=== PATIENT | female | born 1960 | race Caucasian/White ===

== ENCOUNTER → 2018-03-09 09:34 | Outpatient (CLI) | payer MEDICAID, SELFPAY ==
[2018-03-09 10:22] LABS: Absolute Lymphocyte Count 1.95 X10^3/ul (0.83-4.51); Absolute Neutrophil Count 3.6 X10^3/uL (2.0-7.7); Basophil# 0.05 X10^3/uL; Basophil% 0.8 % (0-1); Eosinophil# 0.19 X10^3/uL; Eosinophils% 3.1 % (0-5); Hematocrit 43.6 % (37-47); Hemoglobin 13.7 g/dl (12.0-15.0); Lymphocyte # 1.95 X10^3/ul (4.0); Lymphocyte % 31.7 % (19-41); Mean Corp Hgb Conc 31.4 g/gl (32-36); Mean Corpuscular Hgb 27.8 pg (27.0-32.0); Mean Corpuscular Volume 88.4 fL (81-99); Mean Platelet Vol. 9.2 fl (6.2-12.0); Monocyte# 0.35 X10^3/uL; Monocyte% 5.7 % (0-10); Neutrophil % 58.5 % (47-70); Platelet Count 292 K/mm3 (150-450); RBC Distribution Width CV 13.1 % (11.6-14.6); RBC Distribution Width SD 42.3 fl (35.1-43.9); Red Blood Count 4.93 M/mm3 (4.2-5.4); White Blood Count 6.2 K/mm3 (4.4-11.0)
[2018-03-09 10:38] LABS: POSITIVE COUNT NO; POSITIVE DIFFERENTIAL NO; POSITIVE MORPHOLOGY NO
[2018-03-09 10:48] LABS: AST(SGOT) 19 U/L (15-37); Alanine Aminotransfer ALT/SGPT 24 U/L (13-56); Albumin, Serum 3.7 g/dL (3.2-5.0); Alkaline Phosphatase 103 U/L (45-117); Anion Gap 7 (5-15); BUN 15 mg/dL (7-18); BUN/Creat Ratio 23.6 RATIO (10-20); Calcium,Total 9.1 mg/dL (8.5-10.1); Chloride 105 mmol/L (98-107); Cholesterol 254 mg/dL (200); Creatinine, Serum 0.64 mg/dL (0.55-1.02); EST Glomerular Filtration Rate 101 mL/min (>60); Est Glom Filt Rate - Afr Amer 123 mL/min (>60); Globulin 3.7 g/dL (2.2-4.2); Glucose 89 mg/dL (74-106); High Density Lipoprotein 77 mg/dL; Potassium 4.2 mmol/L (3.5-5.1); Protein, Total 7.4 g/dL (6.4-8.2); Sodium Level 140 mmol/L (136-145); Triglycerides 152 mg/dL; Very Low Density Lipoprotein 30 mg/dL (5-40)
== END ==
PROVIDERS: Family Provider Preventive Medicine Occupational Medicine; PCP Preventive Medicine Occupational Medicine; Visit Provider Preventive Medicine Occupational Medicine
DX: Z13.1 Encounter for screening for diabetes mellitus (principal); Z13.0 Encounter for screening for diseases of the blood and blood-forming organs and certain disorders involving the immune mechanism; Z13.220 Encounter for screening for lipoid disorders; Z13.6 Encounter for screening for cardiovascular disorders
CPT/HCPCS: 36415; 80053; 80061; 85025

== ENCOUNTER → 2018-03-19 10:03 | Outpatient (CLI) | payer MEDICAID, SELFPAY ==
--- NOTE | 2018-03-19 10:04 | RAD_ITS ---
STUDY: X-RAY - LEFT HAND, ATTENTION THIRD FINGER REASON FOR EXAM: Female, 57 years old. Pain. Trigger finger. TECHNIQUE: 3 view(s) of the finger were obtained. COMPARISON: None. FINDINGS: Normal metacarpal head. Normal metacarpophalangeal joint. Normal proximal phalanx. Normal middle phalanx. Normal distal phalanx. Normal proximal interphalangeal joint. Normal distal interphalangeal joint. RAD/Finger(s) Min 2 Views IMPRESSION: No significant abnormality identified. Electronically Signed: Prashant Villalobos MD at 17:07 EDT , Service support ,
== END ==
PROVIDERS: Family Provider Preventive Medicine Occupational Medicine; PCP Preventive Medicine Occupational Medicine; Visit Provider Orthopaedic Surgery
DX: M65.332 Trigger finger, left middle finger (principal)
CPT/HCPCS: 73140

== ENCOUNTER → 2018-04-30 14:27 | Outpatient (CLI) | payer MEDICAID, SELFPAY ==
--- NOTE | 2018-04-30 14:29 | RAD_ITS ---
STUDY: X-RAY - RIGHT HAND, ATTENTION THIRD FINGER REASON FOR EXAM: Female, 57 years old. Pain and swelling TECHNIQUE: 3 view(s) of the finger were obtained. COMPARISON: None. FINDINGS: Normal metacarpal head. Normal metacarpophalangeal joint. Normal proximal phalanx. Normal middle phalanx. Normal distal phalanx. Normal proximal interphalangeal joint. Normal distal interphalangeal joint. RAD/Finger(s) Min 2 Views IMPRESSION: Normal x-ray examination of the finger. Electronically Signed: Brian Ramirez MD at 11:46 EDT , Service support ,
== END ==
PROVIDERS: Family Provider Preventive Medicine Occupational Medicine; PCP Preventive Medicine Occupational Medicine; Referring Provider Physician Assistant; Visit Provider Physician Assistant
DX: M79.644 Pain in right finger(s) (principal)
CPT/HCPCS: 73140

== ENCOUNTER 2018-11-30 19:14 | Emergency (ER) | payer MEDICAID, SELFPAY ==
[2018-06-26 09:57] VITALS: BMI 27.3
[2018-11-30 19:15] VITALS: BP 141/66; PULSE 77; PULSE 80; RESP 16; TEMP 37.1; O2SAT 100; O2SAT 98; BMI 26.4
--- NOTE | 2018-11-30 19:17 | RAD_ITS ---
STUDY: X-RAY - LEFT HAND REASON FOR EXAM: Female, 58 years old. Tripped and fell, landing on left hand. Redness and swelling. Fourth digit pain. TECHNIQUE: 3 view(s) of the hand. COMPARISON: 3 views of the left third finger March 19, 2018. FINDINGS: Normal radiocarpal articulation. Normal distal radioulnar joint. Normal visualized carpal bones. Normal carpal articulations Normal carpometacarpal articulation of the thumb. Normal second through fifth carpometacarpal joints. Normal metacarpi. Normal metacarpophalangeal joint of the thumb. Normal interphalangeal joint of the thumb. Normal proximal and distal phalanges of the thumb. Normal metacarpophalangeal joints of the second through fifth fingers. Normal proximal and distal interphalangeal joints of the second through fifth fingers. Normal phalanges of the second through fifth fingers. The soft tissue structures are unremarkable. There is no demonstrated acute fracture. RAD/Hand Min 3 Views IMPRESSION: Normal x-ray examination of the left hand. Electronically Signed: Brian Long MD at 19:35 EDT , Service support ,
--- NOTE | 2018-11-30 20:04 | ED.VISSUMM ---
- ER Visit Summary Date of Service: 11/30/18 Chief Complaint: Hand injury History of Present Illness: The patient is a 58 F with a mechanical fall earlier today complaining of left hand pain. No head injury neck pain lower extremity pain or any other injuries. She denies any wrist pain Physical Examination: Otherwise normal exam no C-spine tenderness no chest wall abdominal or back pain able to ambulate well with her shoulder pain is ulnar side of the fifth metacarpal region and fourth digit. No wrist pain no snuffbox tenderness. Emergency Department Course and Treatment: X-ray is negative I will discharge in stable condition Discharge stable condition left hand contusion Impression: [] This note was generated with miDrive dictation software. It may contain incorrect words, spelling, and punctuation that were not noted in review of the chart prior to signing ED Disposition - Plan for ED Patient: Disposition: Home or Assisted Living Instructions: ED Contusion Upper Ext Referrals: Kraig Rich DO [Primary Care Provider] - 3-5 Days if not improving
== END 2018-11-30 20:14 | disposition home or self-care (01) ==
PROVIDERS: Emergency Provider Emergency Medicine; Family Provider Preventive Medicine Occupational Medicine; PCP Preventive Medicine Occupational Medicine
DX: S60.222A Contusion of left hand, initial encounter (principal); W19.XXXA Unspecified fall, initial encounter; Y93.9 Activity, unspecified; Y92.9 Unspecified place or not applicable; Y99.9 Unspecified external cause status
CPT/HCPCS: 73130; 99282

== ENCOUNTER → 2019-12-06 14:52 | Outpatient (CLI) | payer MEDICAID, SELFPAY ==
--- NOTE | 2019-12-06 16:00 | RAD_ITS ---
STUDY: X-RAY - RIGHT ANKLE REASON FOR EXAM: Pain for 2 years, on and off pain and swelling. TECHNIQUE: 3 view(s) of the ankle. COMPARISON: None. FINDINGS: Normal visualized distal tibia and fibula. Normal medial and lateral malleoli. Normal tibiotalar articulation and ankle mortise. Normal visualized talus and calcaneus. The visualized subtalar, talonavicular, calcaneocuboid and tarsal articulations are normal. The soft tissue structures are unremarkable. RAD/Ankle min 3 Views IMPRESSION: Normal x-ray examination of the right ankle. Electronically Signed: Denis Delarosa MD at 14:35 EDT Tel , Service support ,
[2019-12-06 16:53] LABS: Uric Acid 3.1 mg/dL (2.6-6.0)
== END ==
PROVIDERS: PCP Preventive Medicine Occupational Medicine; Visit Provider Preventive Medicine Occupational Medicine
DX: M25.571 Pain in right ankle and joints of right foot (principal)
CPT/HCPCS: 36415; 73610; 84550

== ENCOUNTER → 2020-09-21 11:57 | Outpatient (CLI) | payer MEDICAID, SELFPAY ==
--- NOTE | 2020-09-21 12:00 | BI_ITS ---
MAMMOGRAPHY - BILATERAL SCREENING REASON FOR EXAM: Female, 60 years old. Routine annual screening examination. PERTINENT HISTORY: Non-contributory. Bilateral breast implants. TECHNIQUE: Digital bilateral breast ro (3D mammographic acquisition) in the CC and MLO projections. 2-D mediolateral oblique (MLO) and craniocaudad (CC) views of both breasts were obtained. CAD: Full Field Digital Mammography with Computer Added Detection was performed. COMPARISON: Comparison is made with prior study dated 11/20/2016. FINDINGS: Breast Composition: There are scattered areas of fibroglandular density. There are no dominant masses or suspicious calcifications. Stable appearance of the bilateral breast implants. Stable small benign-appearing bilateral axillary lymph nodes. No other significant abnormalities are identified. There has been no significant change since the prior study. BI/SCRN MAMM (CAD)W/RO BILAT IMPRESSION: Stable bilateral screening mammogram. Yearly follow-up mammogram recommended. (A) ASSESSMENT CATEGORY: BIRADS Category 2: Benign. A letter regarding these results will be sent to the patient by the facility within 30 days. Approximately 10% of breast cancers are not detected by mammography. A normal mammogram should not delay biopsy of a clinically suspicious abnormality. [id number] Electronically Signed: Phong Hollins MD at 13:42 EDT , Service support ,
== END ==
PROVIDERS: PCP Preventive Medicine Occupational Medicine; Referring Provider Preventive Medicine Occupational Medicine; Visit Provider Preventive Medicine Occupational Medicine
DX: Z12.31 Encounter for screening mammogram for malignant neoplasm of breast (principal)
CPT/HCPCS: 77063; 77067

== ENCOUNTER → 2021-05-14 10:21 | Outpatient (CLI) | payer MEDICAID, SELFPAY ==
[2021-05-14 10:38] LABS: Hematocrit 41.6 % (37-47); Hemoglobin 13.4 g/dL (12.0-15.0); Mean Corp Hgb Conc 32.2 g/dL (32-36); Mean Platelet Vol. 9.1 fl (6.2-12.0); Platelet Count 350 K/mm3 (150-450); RBC Distribution Width CV 12.7 % (11.6-14.6); RBC Distribution Width SD 40.3 fl (35.1-43.9); Red Blood Count 4.78 M/mm3 (4.2-5.4); White Blood Count 6.7 K/mm3 (4.4-11.0)
[2021-05-14 11:08] LABS: AST(SGOT) 16 U/L (15-37); Alanine Aminotransfer ALT/SGPT 25 U/L (13-56); Albumin, Serum 3.6 g/dL (3.2-5.0); Alkaline Phosphatase 91 U/L (45-117); Anion Gap 3 (5-15); BUN 18 mg/dL (7-18); BUN/Creat Ratio 27.4 RATIO (10-20); Calcium,Total 8.7 mg/dL (8.5-10.1); Chloride 105 mmol/L (98-107); Cholesterol 256 mg/dL (200); Creatinine, Serum 0.66 mg/dL (0.55-1.02); EST Glomerular Filtration Rate 97 mL/min (>60); Est Glom Filt Rate - Afr Amer 117 mL/min (>60); Globulin 3.6 g/dL (2.2-4.2); Glucose 93 mg/dL (74-106); High Density Lipoprotein 61 mg/dL; Potassium 4.2 mmol/L (3.5-5.1); Protein, Total 7.2 g/dL (6.4-8.2); Sodium Level 137 mmol/L (136-145); Triglycerides 115 mg/dL; Very Low Density Lipoprotein 23 mg/dL (5-40)
== END ==
PROVIDERS: PCP Preventive Medicine Occupational Medicine; Referring Provider Preventive Medicine Occupational Medicine; Visit Provider Preventive Medicine Occupational Medicine
DX: Z13.220 Encounter for screening for lipoid disorders (principal); Z13.1 Encounter for screening for diabetes mellitus; Z13.0 Encounter for screening for diseases of the blood and blood-forming organs and certain disorders involving the immune mechanism
CPT/HCPCS: 36415; 80053; 80061; 85027

== ENCOUNTER 2021-10-02 10:40 | Outpatient (CLI) | payer MEDICAID, SELFPAY ==
--- NOTE | 2021-10-03 09:57 | PFT_ITS ---
INTRODUCTION: The patient is a 61-year-old female that presents for pulmonary function studies secondary to a diagnosis of exertional dyspnea. Respiratory therapy reported good patient effort. Bronchodilators were used during testing. INTERPRETATION: Forced expiration spirometry demonstrates no evidence of a large airways obstructive ventilatory defect. There was a significant response to aerosolized bronchodilators noted. Spirograms are of good quality and plateau gradually indicating slow emptying of the lungs. Body plethysmography was performed and revealed lung volumes to be within normal limits. Diffusing capacity by single breath CO is also within normal limits. IMPRESSION: Stigmata of small airways disease with significant bronchodilator response note d.
== END 2021-10-02 23:59 | disposition home or self-care (01) ==
LOC: PSN 10:41
PROVIDERS: PCP Preventive Medicine Occupational Medicine; Referring Provider Preventive Medicine Occupational Medicine; Visit Provider Preventive Medicine Occupational Medicine
DX: R06.00 Dyspnea, unspecified (principal); J98.4 Other disorders of lung
CPT/HCPCS: 94060; 94726; 94729

== ENCOUNTER → 2022-05-01 | Outpatient (CLI) | payer MEDICAID, SELFPAY ==
[2022-05-01 10:32] LABS: Hematocrit 42.6 % (37-47); Hemoglobin 14.2 g/dL (12.0-15.0); Mean Corp Hgb Conc 33.3 g/dL (32-36); Mean Corpuscular Hgb 28.7 pg (27.0-32.0); Mean Corpuscular Volume 86.1 fL (81-99); Platelet Count 334 K/mm3 (150-450); RBC Distribution Width CV 12.9 % (11.6-14.6); RBC Distribution Width SD 40.3 fl (35.1-43.9); Red Blood Count 4.95 M/mm3 (4.2-5.4); White Blood Count 5.8 K/mm3 (4.4-11.0)
[2022-05-01 11:24] LABS: ALB/GLOB Ratio 1.2 RATIO (0.9-2.4); AST(SGOT) 18 U/L (15-37); Alanine Aminotransfer ALT/SGPT 24 U/L (13-56); Albumin, Serum 3.9 g/dL (3.2-5.0); Alkaline Phosphatase 85 U/L (45-117); Anion Gap 5 (5-15); BUN 10 mg/dL (7-18); BUN/Creat Ratio 14.5 RATIO (10-20); Calcium,Total 8.9 mg/dL (8.5-10.1); Chloride 107 mmol/L (98-107); Cholesterol 234 mg/dL (200); Creatinine, Serum 0.69 mg/dL (0.55-1.02); EST Glomerular Filtration Rate 91 mL/min (>60); Est Glom Filt Rate - Afr Amer 110 mL/min (>60); Globulin 3.3 g/dL (2.2-4.2); Glucose 93 mg/dL (74-106); High Density Lipoprotein 62 mg/dL; Protein, Total 7.2 g/dL (6.4-8.2); Sodium Level 140 mmol/L (136-145); Triglycerides 128 mg/dL; Very Low Density Lipoprotein 26 mg/dL (5-40)
== END | disposition home or self-care (01) ==
LOC: LAB 10:18
PROVIDERS: PCP Preventive Medicine Occupational Medicine; Visit Provider Preventive Medicine Occupational Medicine
DX: Z00.00 Encounter for general adult medical examination without abnormal findings (principal)
CPT/HCPCS: 36415; 80053; 80061; 85027

== ENCOUNTER → 2022-05-29 | Outpatient (CLI) | payer MEDICAID, SELFPAY ==
--- NOTE | 2022-05-29 08:32 | BD_ITS ---
STUDY: DUAL ENERGY X-RAY ABSORPTIOMETRY / DXA REASON FOR EXAM: Female, 61 years old. N95.1 -- MENOPAUSAL STATE TECHNIQUE: Bone Mineral Density (BMD) measurements of lumbar spine and bilateral hips were obtained. COMPARISON: None. FINDINGS: Lumbar Spine (L1-L4): g/cm2 (0.834) / T-score (-1.9) / Z-score (-0.2) Findings are suggestive of osteopenia with a moderate fracture risk. Left Femur Total: g/cm2 (0.932) / T-score (-0.1) / Z-score (1.1) Left Femoral Neck: g/cm2 (0.724) / T-score (-1.1) / Z-score (0.3) Right Femur Total: g/cm2 (0.892) / T-score (-0.4) / Z-score (0.8) Right Femoral Neck: g/cm2 (0.758) / T-score (-0.8) / Z-score (0.6) BD/Dexa Bone Density Study IMPRESSION: The patient is considered osteopenic as outlined below according to World [employer] Organization (WHO) criteria with a moderate fracture risk. Reference Information: The T-score is the number of standard deviations above or below the standard which is normal for young adults at their peak bone mineral density. The World Health Organization (WHO) interprets the T-scores as follows: Above -1 Normal bone density Between -1 and -2.5 Osteopenia Equal to / or below -2.5 Osteoporosis As a practical clinical guideline, osteopenia may be graded as follows: Mild -1 through -1.5 Moderate -1.6 through -2.0 Severe -2.1 through -2.4 The Z-score is the number of standard deviations above or below age-matched controls. A Z-score of less than -1.5 would be considered abnormal. References: 1. NIH Osteoporosis and Related Bone Diseases www osteo.org 2. International Society for Clinical Densitometry www iscd.org 3. National Osteoporosis Foundation www nof.org Electronically Signed: Phong Hollins MD at 10:24 EST ,
== END | disposition home or self-care (01) ==
LOC: OPBD 08:25
PROVIDERS: PCP Preventive Medicine Occupational Medicine; Visit Provider Preventive Medicine Occupational Medicine
DX: Z78.0 Asymptomatic menopausal state (principal)
CPT/HCPCS: 77080

== ENCOUNTER → 2023-02-27 | Outpatient (CLI) | payer MEDICAID, SELFPAY ==
--- NOTE | 2023-02-27 07:53 | BI_ITS ---
MAMMOGRAPHY - BILATERAL SCREENING REASON FOR EXAM: Female, 62 years old. Routine annual screening examination. PERTINENT HISTORY: Non-contributory. Bilateral breast implants. TECHNIQUE: Digital bilateral breast ro (3D mammographic acquisition) in the CC and MLO projections. 2-D mediolateral oblique (MLO) and craniocaudad (CC) views of both breasts were obtained. CAD: Full Field Digital Mammography with Computer Added Detection was performed. COMPARISON: Comparison is made with prior study dated September 21, 2020 and November 20, 2016. FINDINGS: Breast Composition: There are scattered areas of fibroglandular density. There are no dominant masses or suspicious calcifications. Stable appearance of the bilateral breast implants. Stable small benign-appearing bilateral axillary nodes. No other significant abnormalities are identified. There has been no significant change since the prior study. BI/SCRN MAMM (CAD)W/RO BILAT IMPRESSION: Stable bilateral screening mammogram. Yearly follow-up mammogram recommended. (A) ASSESSMENT CATEGORY: BIRADS Category 2: Benign. A letter regarding these results will be sent to the patient by the facility within 30 days. Approximately 10% of breast cancers are not detected by mammography. A normal mammogram should not delay biopsy of a clinically suspicious abnormality. [id number] Electronically Signed: Phong Hollins MD at 9:07 EDT ,
== END | disposition home or self-care (01) ==
PROVIDERS: PCP Preventive Medicine Occupational Medicine; Referring Provider Preventive Medicine Occupational Medicine; Visit Provider Preventive Medicine Occupational Medicine
DX: Z12.31 Encounter for screening mammogram for malignant neoplasm of breast (principal)
CPT/HCPCS: 77063; 77067

== ENCOUNTER 2023-07-31 09:26 | Outpatient (CLI) | payer MEDICARE, SELFPAY ==
[2023-07-31 11:19] LABS: Hemoglobin 12.7 g/dL (12.0-15.0); Mean Corpuscular Hgb 27.8 pg (27.0-32.0); Mean Corpuscular Volume 89.7 fL (81-99); Mean Platelet Vol. 9.5 fl (6.2-12.0); Platelet Count 325 K/mm3 (150-450); RBC Distribution Width CV 13.2 % (11.6-14.6); RBC Distribution Width SD 42.9 fl (35.1-43.9); Red Blood Count 4.57 M/mm3 (4.2-5.4); White Blood Count 5.6 K/mm3 (4.4-11.0)
[2023-07-31 11:48] LABS: ALB/GLOB Ratio 1.1 RATIO (0.9-2.4); AST(SGOT) 22 U/L (15-37); Alanine Aminotransfer ALT/SGPT 29 U/L (13-56); Albumin, Serum 3.7 g/dL (3.2-5.0); Alkaline Phosphatase 83 U/L (45-117); Anion Gap 3 (5-15); BUN 12 mg/dL (7-18); BUN/Creat Ratio 20.2 RATIO (10-20); Calcium,Total 8.9 mg/dL (8.5-10.1); Chloride 104 mmol/L (98-107); Cholesterol 246 mg/dL (200); EST Glomerular Filtration Rate 108 mL/min (>60); Est Glom Filt Rate - Afr Amer 130 mL/min (>60); Globulin 3.5 g/dL (2.2-4.2); Glucose 85 mg/dL (74-106); High Density Lipoprotein 67 mg/dL; Potassium 3.7 mmol/L (3.5-5.1); Protein, Total 7.2 g/dL (6.4-8.2); Sodium Level 136 mmol/L (136-145); Triglycerides 136 mg/dL; Very Low Density Lipoprotein 27 mg/dL (5-40)
--- OUTSIDE RECORDS SUMMARY | 2023-07-31 11:58 | XMS RPT_ITS | CCD ---
Author Name Unknown Address [address] [place] [address] Organization [facility] Care Team Providers Care Detective Lieutenant Name Role Phone GERARDO CUNNINGHAM Attending Unavailable PHYSICIAN, NOT RECORDED Primary Care Unavaila LUCIEN Bhardwaj Attending Unavailable PHYSICIAN, NOT RECORDED Primary Care UnavailCharo Sher Primary Care Provider Charo Rich Primary Care Provider Charo Rich DO Primary Care Provider CHARO RICH Primary Care Unavailable ANA ALVAREZ Attending Unavailable Medications Current Medications Medication Drug Class(es) Dates Sig (Normalized) Sig (Original) estrogens, conjugated (assisted) 0.625 mg/ml vaginal cream (6 sources) Estrogen Start: 05-13-2023 conjugated estrogens (PREMARIN) vaginal cream Apply 1 gram to vagina 2-3 times weekly. 42.5 g 2 05/13/2023 Active Completed/Discontinued Medications Medication Drug Class(es) Dates Sig (Normalized) Sig (Original) biotin 5 mg oral tablet (4 sources) take 1 tablet by dusty th once daily biotin 5 mg tab Take 5 mg by mouth once daily. 0 Active Problems Problem Classification Problem Date Documented Da te Episodic/Chronic Genitourinary symptoms and ill-defined conditions (2 sources) Frequency of micturition; Translations: [Frequency of micturition] Onset: 04-23-2018 Episodic Intestinal obstruction without hernia (4 sources) Small bowel obstruction; Translations: [Unspecified intestinal obstruction, unspecified as to partial versus complete obstruction] Onset: 09-08-2015 09-08-2015 Episodic Results Test Name Value Interpretation Reference Range Facil ity Vital Signs Date Time Vital Sign Value Performing Clinician Faci lity 05-13-2023 06:57-0500 Body height 152.4 cm Ana Fitz ALGOLOGY TEACHER.HOT PUNCH PRESS OPERATOR Work Phone: [facility] 05-13-2023 06:57-0500 Body weight 62.78 kg Ana Fitz ALGOLOGY TEACHER.HOT PUNCH PRESS OPERATOR Work Phone: [facility] 05-13-2023 06:57-0500 Diastolic blood pressure 66 mm[Hg] Ana Fitz ALGOLOGY TEACHER.HOT PUNCH PRESS OPERATOR Work Phone: [facility] 05-13-2023 06:57-0500 Systolic blood pressure 124 mm[Hg] Ana Fitz ALGOLOGY TEACHER.HOT PUNCH PRESS OPERATOR Work Phone: [facility] Encounters Encounter Date Encounter Type Care Provider Facility Start: 05-13-2023 End: 05-13-2023 [facility] Facility:[facility] Start: 05-13-2023 End: 05-13-2023 Patient encounter procedure Ana Grover ALGOLOGY TEACHER.HOT PUNCH PRESS OPERATOR Work Phone: OB/Gynecology Procedures Date Procedure Procedure Detail Performing Clinician Start: 09-22-2018 Colonoscopy Ana Barber clay ALGOLOGY TEACHER.HOT PUNCH PRESS OPERATOR Work Phone: Plan of Treatment Date Care Activity Detail Author Start: 10-23-2026 Urine microalbumin profile DTa P,Tdap,Td Vaccine (3 - Td or Tdap) [facility] Start: 10-18-2025 HPV TESTING HPV TESTING [facility] Start: 10-18-2025 PAP TESTING PAP TESTING [facility] Start: 02-28-2024 Mammography Mammogram Screening [facility] Start: 02-28-2023 Covid-19 Vaccine ( season) Covid-19 Vaccine ( season) [facility] Start: 02-28-2023 Influenza vaccination Influenza Vacc ine (#1) [facility] Start: 06-30-2022 Depression Assessment Depression Ass essment [facility] Start: 02-28-2022 Influenza vaccination INFLUENZA (#1) [facility] Start: 02-28-2021 Influenza vaccination INFLUENZA (#1) [facility] Start: 09-23-2019 Colonoscopy Colonoscopy [facility] Start: 09-23-2019 Colorectal Cancer Screening Colorectal Cancer Screening [facility] Start: 2018 RSV Vaccine (1 - 1-d ose 60+ series) RSV Vaccine (1 - 1-dose 60+ series) [facility] Start: 2008 SHINGRIX VACCINE (1 of 2) SHINGRIX V ACCINE (1 of 2) [facility] Start: 2003 COLOGUARD (FIT-DNA) COLOGUARD (FIT-D NA) [facility] Start: 2003 Colonoscopy COLONOSCOPY [facility] Start: 2003 COLORECTAL CANCER SCREENING COLORECTAL CANCER SCREENING [facility] Start: [address] COLONOGRAPHY [facility] Start: 2003 DIABETES SCREEN DIABETES SCREEN [facility] Start: 2003 Diabetes Screening Diabetes Screenin g [facility] Start: 2003 FECAL OCCULT BLOOD FECAL OCCULT BLOO D [facility] Start: 2003 Lipid 1996 panel - S edwardo or Plasma Lipid Screening [facility] Start: 2003 LIPID SCREEN LIPID SCREEN [facility] Start: 2003 SIGMOIDOSCOPY SIGMOIDOSCOPY [facility] Start: 1998 Mammography MAMMOGRAM [facility] Start: 1977 Urine microalbumin profile DTAP,TDAP ,TD (1 - Tdap) [facility] Start: 1976 HEPATITIS C SCREENING HEPATITIS C SC REENING [facility] Start: 1976 HIV SCREENING HIV SCREENING [facility] Start: 1970 Adult depression scr [facility] assessment DEPRESSION SCREENING [facility] Start: 1963 COVID-19 VACCINE (1) COVID-19 VACCIN E (1) [facility] Start: 1958 COVID-19 VACCINE (#1) COVID-19 VACCI NE (#1) [facility] Immunizations Immunization Date Immunization Notes Care Provider Fa noe 09-08-2021 influenza virus vacc ine, unspecified formulation Ana Alvarez APRN.CNP Work Phone: [facility] Payers Date Payer Category Payer Medicaid [id number] 2018 Unknown [id number] 2016 [facility] MEDICAID [id number] 2016-Present [phone] [address] [place] [address] Medicaid [id number] 2016 Medicaid [id number] 1958 Unknown [id number] 1958 Unknown [id number] Social History Date Type Detail Facility Start: 03-21-2018 End: 05-13-2023 Tobacco smoking status NHIS Ex-smoker [facility] Start: 08-11-1991 End: 08-11-1995 History of tobacco use Current smoker [facility] Start: 08-11-1991 End: 08-11-1995 History of tobacco use Cigarette Smoker [facility] Start: 10-18-2020 End: 05-13-2023 Alcohol intake Current non-drinker of alcohol (finding) [facility] Start: 1960 Sex Assigned At Female C [facility] Start: 03-21-2018 End: 05-13-2023 Cigarettes smoked current (pack per day) - Reported 0.5 [facility] Start: 03-21-2018 End: 05-13-2023 Tobacco use and exposure Smokeless tobacco non-user [facility] Start: 05-13-2023 Tobacco use panel [facility] National Score (1-100), lower number is lower risk 55 [facility] Start: 05-13-2023 Education 13 [facility] Start: 08-16-2021 Gender identity Identifies as female gender (finding) [facility] Start: 08-16-2021 Sexual orientation Heterosexual (fin ryan) [facility] NEGATED: Highlighted rowStart: RUBINA History of tobacco use Passive smoker [facility] Work Phone: Progress note 05-13-2023 Note Date & Type Note Facility 05-13-2023 Note HNO ID: [id number] Author: Ana Alvarez APRN.HOT PUNCH PRESS OPERATOR Service: ? Author Type: Nurse Practitioner Type: Progress Notes Filed: 05/13/2023 7:29 AM Note Text: patient declined slab lifting engineer Antonio is a 62 year old who presents for an annual gynecologic exam without complaints. Postmenopausal: Yes HRT use: Yes, vaginal estrogen Last Pap: 10/23/2020 normal HPV: 10/20/2020 negative History of abnormal pap: No Last mammogram: 2022 normal [facility] History of abnormal mammogram: No Sexually active: Yes Pain with intercourse: No Postcoital bleeding: No OB History T0 L0 SAB0 IAB0 Ectopic0 Multiple0 Live Births0 Comment: 5 step children Dependency Program Director History LMP: Postmenopausal Age at Menarche: Age at First : Age at Menopause: Dependency Program Director History Comments: Sexual Activity: Yes; Male Contraception: No contraception data on record PAST MEDICAL HISTORY Diagnosis Date Hyperlipidemia PAST SURGICAL HISTORY Procedure Laterality Date PAST SURGICAL HISTORY OF 2013 SBO FAMILY HISTORY Problem Relation Age of Onset Hypertension Mother Stroke Mother Lipids Sister COPD Sister Hypertension Sister Diabetes Brother Obesity Brother Hypertension Brother SOCIAL HISTORY Social History Tobacco Use Smoking status: Former Packs/day: 0.50 Years: 4.00 Additional pack years: 0.00 Total pack years: 2.00 Types: Cigarettes Start date: 08/11/1991 Quit date: 08/11/1995 Years since quittin.7 Passive exposure: Never Smokeless tobacco: Never Vaping Use Vaping Use: Never used Substance Use Topics Alcohol use: No Drug use: Never REVIEW OF SYSTEMS Abdomen: No abdominal pain, nausea, vomiting, diarrhea, or constipation. No bloating, early satiety, indigestion, or increased flatulence. Bladder: No dysuria, gross hematuria, urinary frequency, urinary urgency, or incontinence Breast: No breast lumps, nipple d/c, overlying skin changes, redness or skin retraction Allergies and current medication updated:Yes EXAM: Ht 5' 0 (1.52m) Wt 138 lb 6.4 oz (62.8kg) BMI 27.03 kg/(m2). GENERAL: pleasant, female in no apparent distress HEENT: Normocephalic, atraumatic, mucus membranes moist, and no lesions NECK: Supple, full range of motion, no adenopathy, and thyroid normal DERMATOLOGY: Normal, without lesions, non-icteric, and non-hirsute BREAST: soft, non-tender, symmetric, no dominant mass, normal nipple-areolar complex, no lymphadenopathy, and no nipple discharge CHEST: Normal inspiratory effort ABDOMEN: soft, non-tender, and no masses PELVIC: external genitalia normal, normal Bartholin's glands, urethra, [place]'s glands, no vulvar lesions, no cervical lesions, good vaginal support, physiologic discharge present, normal appearing perineal body and perianal region BIMANUAL: uterus normal size, shape and consistency, no adnexal masses, and non-tender RECTOVAGINAL: deferred. NEURO: alert and oriented x3,exam grossly non-focal EXTREMITIES: normal ASSESSMENT/PLAN: 1) Health maintenance: Pap/HPV up to date. Mammogram up to date Nutrition, exercise and routine health maintenance exams reviewed. Calcium/Vitamin D supplementation information provided. Colon cancer screening: up to date with screening BMD: ordered 2) Follow up one year or sooner as needed Ana Alvarez APRN.DIONE [facility] History of Present illness Narrative 05-13-2023 Ana Alvarez APRN.CNP - 05/13/2023 6:55 AM EST Note Date & Type Note Facility 05-13-2023 History of Presen t illness Narrative patient declined slab lifting engineer Antonio is a 62 year old who presents for an annual gynecologic exam without complaints. Postmenopausal: Yes HRT use: Yes, vaginal estrogen Last Pap: 10/23/2020 normal HPV: 10/20/2020 negative History of abnormal pap: No Last mammogram: 2022 normal @[facility] History of abnormal mammogram: No Sexually active: Yes Pain with intercourse: No Postcoital bleeding: No OB History T0 L0 SAB0 IAB0 Ectopic0 Multiple0 Live Births0 Comment: 5 step children Dependency Program Director History LMP: Postmenopausal Age at Menarche: Age at First : Age at Menopause: Dependency Program Director History Comments: Sexual Activity: Yes; Male Contraception: No contraception data on record PAST MEDICAL HISTORY Diagnosis Date Hyperlipidemia PAST SURGICAL HISTORY Procedure Laterality Date PAST SURGICAL HISTORY OF 2013 SBO FAMILY HISTORY Problem Relation Age of Onset Hypertension Mother Stroke Mother Lipids Sister COPD Sister Hypertension Sister Diabetes Brother Obesity Brother Hypertension Brother SOCIAL HISTORY Social History Tobacco Use Smoking status: Former Packs/day: 0.50 Years: 4.00 Additional pack years: 0.00 Total pack years: 2.00 Types: Cigarettes Start date: 08/11/1991 Quit date: 08/11/1995 Years since quittin.7 Passive exposure: Never Smokeless tobacco: Never Vaping Use Vaping Use: Never used Substance Use Topics Alcohol use: No Drug use: Never REVIEW OF SYSTEMS Abdomen: No abdominal pain, nausea, vomiting, diarrhea, or constipation. No bloating, early satiety, indigestion, or increased flatulence. Bladder: No dysuria, gross hematuria, urinary frequency, urinary urgency, or incontinence Breast: No breast lumps, nipple d/c, overlying skin changes, redness or skin retraction Allergies and current medication updated:Yes EXAM: Ht 5' 0 (1.52m) Wt 138 lb 6.4 oz (62.8kg) BMI 27.03 kg/(m^2). GENERAL: pleasant, female in no apparent distress HEENT: Normocephalic, atraumatic, mucus membranes moist, and no lesions NECK: Supple, full range of motion, no adenopathy, and thyroid normal DERMATOLOGY: Normal, without lesions, non-icteric, and non-hirsute BREAST: soft, non-tender, symmetric, no dominant mass, normal nipple-areolar complex, no lymphadenopathy, and no nipple discharge CHEST: Normal inspiratory effort ABDOMEN: soft, non-tender, and no masses PELVIC: external genitalia normal, normal Bartholin's glands, urethra, [place]'s glands, no vulvar lesions, no cervical lesions, good vaginal support, physiologic discharge present, normal appearing perineal body and perianal region BIMANUAL: uterus normal size, shape and consistency, no adnexal masses, and non-tender RECTOVAGINAL: deferred. NEURO: alert and oriented x3,exam grossly non-focal EXTREMITIES: normal ASSESSMENT/PLAN: 1) Health maintenance: Pap/HPV up to date. Mammogram up to date Nutrition, exercise and routine health maintenance exams reviewed. Calcium/Vitamin D supplementation information provided. Colon cancer screening: up to date with screening BMD: ordered 2) Follow up one year or sooner as needed Ana Alvarez APRN.CNP documented in this encounter [facility] Note 03-08-2022 Telephone Encounter - Christina Vazquez RN - 03/08/2022 10:38 AM EDT Note Date & Type Note Facility 03-08-2022 Miscellaneous Notes Formattin g of this note might be different from the original. Patient calling for refill on Premarin Rx. Patient last seen for annual exam on 10/18/20. Christina Vazquez RN documented in this encounter [facility] Note 08-21-2021 Telephone Encounter - Cee Shaffer RN - 08/21/2021 8:49 AM EST Note Date & Type Note Facility 08-21-2021 Miscellaneous Notes Last annual with DM 09/2020. Pending Prescriptions Disp Refills CLOBETASOL 0.05 % TOPICAL OINTMENT 30 g 0 Sig: Apply 1 application to affected area twice daily. For 4 weeks then use once weekly for maintenance GENE: No RX INSTRUCTIONS: Patient aware RX will be sent to pharmacy. No need to notify patient. Cee Shaffer RN documented in this encounter [facility] Evaluation note Note Date & Type Note Facility documented in this encounter [facility] Summary Purpose Family History No Family History Records FoundNo Family History Records Found Advance Directives No Advanced Directives Records FoundNo Advanced Directives Records Found Additional Source Comments INFORMATION SOURCE (unrecogn ized section and content) DATE CREATED AUTHOR AUTHOR'S ORGANIZ ATION 06/18/2023 [facility] Source Comments (unrecognize d section and content) In the event this informatio n is protected by the Federal Confidentiality of Alcohol and Drug Abuse Patient Records regulations: The Federal rules restrict any use of the information to criminally investigate or prosecute any alcohol or drug abuse patient.[facility] the event this information is protected by the Federal Confidentiality of Alcohol and Drug Abuse Patient Records regulations: The Federal rules restrict any use of the information to criminally investigate or prosecute any alcohol or drug abuse patient.[facility] the event this information is protected by the Federal Confidentiality of Alcohol and Drug Abuse Patient Records regulations: The Federal rules restrict any use of the information to criminally investigate or prosecute any alcohol or drug abuse patient.[facility] the event this information is protected by the Federal Confidentiality of Alcohol and Drug Abuse Patient Records regulations: The Federal rules restrict any use of the information to criminally investigate or prosecute any alcohol or drug abuse patient.[facility] Reason for Visit (unrecogniz ed section and content) Reason Onset Date Comments Refill Request 03/08/2022 Reason Comments Yearly Exam Care Teams (unrecognized sec tion and content) Detective Lieutenant Relationship Specialty Start Date End Date Charo Rich [address] [place] [id number] PCP - General Family Practice 09/08/20 Detective Lieutenant Relationship Specialty Start Date End Date Charo Rich [address] [place] [id number] PCP - General Family Practice 09/08/20 Detective Lieutenant Relationship Specialty Start Date End Date Charo RichDO [address] [place] [id number] PCP - General Family Medicine 09/08/20 FOR RECORDS PERTAINING TO PATIENTS WHO ARE OR HAVE BEEN ENROLLED IN A CHEMICAL DEPENDENCY/SUBSTANCEABUSE PROGRAM, SOME INFORMATION MAY BE OMITTED. This clinical summary was aggregated from multiple sources. Caution should be exercised in using it in the provision of clinical care. This summary normalizes information from multiple sources, and as a consequence, information in this document may materially change the coding, format and clinical context of patient data. In addition, data may be omitted in some cases. CLINICAL DECISIONS SHOULD BE BASED ON THE PRIMARY CLINICAL RECORDS. [facility]. provides no warranty or guarantee of the accuracy or completeness of information in this document.
== END 2023-07-31 23:59 | disposition home or self-care (01) ==
PROVIDERS: PCP Preventive Medicine Occupational Medicine; Referring Provider Preventive Medicine Occupational Medicine; Visit Provider Preventive Medicine Occupational Medicine
DX: Z13.1 Encounter for screening for diabetes mellitus (principal); Z13.0 Encounter for screening for diseases of the blood and blood-forming organs and certain disorders involving the immune mechanism; Z13.220 Encounter for screening for lipoid disorders
CPT/HCPCS: 36415; 80053; 80061; 85027

== ENCOUNTER → 2024-05-12 | Outpatient (CLI) | payer MEDICARE, OTHER, SELFPAY ==
[2024-05-12 08:49] LABS: Hematocrit 41.3 % (37-47); Mean Corp Hgb Conc 31.5 g/dL (32-36); Mean Corpuscular Hgb 27.6 pg (27.0-32.0); Mean Corpuscular Volume 87.7 fL (81-99); Mean Platelet Vol. 9.1 fl (6.2-12.0); Platelet Count 390 K/mm3 (150-450); RBC Distribution Width CV 13.2 % (11.6-14.6); RBC Distribution Width SD 42.5 fl (35.1-43.9); Red Blood Count 4.71 M/mm3 (4.2-5.4); White Blood Count 6.5 K/mm3 (4.4-11.0)
[2024-05-12 09:13] LABS: ALB/GLOB Ratio 1.2 RATIO (0.9-2.4); AST(SGOT) 23 U/L (15-37); Alanine Aminotransfer ALT/SGPT 32 U/L (13-56); Albumin, Serum 3.7 g/dL (3.2-5.0); Alkaline Phosphatase 117 U/L (45-117); Anion Gap 4 (5-15); BUN 14 mg/dL (7-18); BUN/Creat Ratio 19.7 RATIO (10-20); Calcium,Total 9.2 mg/dL (8.5-10.1); Chloride 104 mmol/L (98-107); Creatinine, Serum 0.71 mg/dL (0.55-1.02); EST Glomerular Filtration Rate 88 mL/min (>60); Est Glom Filt Rate - Afr Amer 106 mL/min (>60); Globulin 3.1 g/dL (2.2-4.2); Glucose 90 mg/dL (74-106); Potassium 4.6 mmol/L (3.5-5.1); Protein, Total 6.8 g/dL (6.4-8.2); Sodium Level 140 mmol/L (136-145)
== END | disposition home or self-care (01) ==
PROVIDERS: PCP Preventive Medicine Occupational Medicine; Referring Provider Preventive Medicine Occupational Medicine; Visit Provider Preventive Medicine Occupational Medicine
DX: Z00.00 Encounter for general adult medical examination without abnormal findings (principal); Z79.899 Other long term (current) drug therapy
CPT/HCPCS: 36415; 80053; 85027

== ENCOUNTER → 2024-05-20 | Outpatient (CLI) | payer MEDICARE, OTHER, SELFPAY ==
[2024-05-20 09:54] LABS: Cholesterol 263 mg/dL (200); High Density Lipoprotein 74 mg/dL; Triglycerides 126 mg/dL; Very Low Density Lipoprotein 25 mg/dL (5-40)
== END | disposition home or self-care (01) ==
PROVIDERS: PCP Preventive Medicine Occupational Medicine; Referring Provider Preventive Medicine Occupational Medicine; Visit Provider Preventive Medicine Occupational Medicine
DX: Z00.00 Encounter for general adult medical examination without abnormal findings (principal)
CPT/HCPCS: 36415; 80061

== ENCOUNTER → 2024-07-21 | Outpatient (CLI) | payer MEDICARE, OTHER, SELFPAY ==
--- NOTE | 2024-07-21 12:23 | BI_ITS ---
MAMMOGRAPHY - BILATERAL SCREENING REASON FOR EXAM: Female, 64 years old. Routine annual screening examination. PERTINENT HISTORY: Non-contributory. Bilateral breast implants. TECHNIQUE: Digital bilateral breast ro (3D mammographic acquisition) in the CC and MLO projections. 2-D mediolateral oblique (MLO) and craniocaudad (CC) views of both breasts were obtained. CAD: Full Field Digital Mammography with Computer Added Detection was performed. COMPARISON: Comparison is made with prior study February 27, 2023 and September 21, 2020. FINDINGS: Breast Composition: There are scattered areas of fibroglandular density. There are no dominant masses or suspicious calcifications. Stable bilateral breast implants. No other significant abnormalities are identified. There has been no significant change since the prior study. BI/SCRN MAMM (CAD)W/RO BILAT IMPRESSION: Stable bilateral screening mammogram. Yearly follow-up mammogram recommended. (A) ASSESSMENT CATEGORY: BIRADS Category 2: Benign. A letter regarding these results will be sent to the patient by the facility within 30 days. Approximately 10% of breast cancers are not detected by mammography. A normal mammogram should not delay biopsy of a clinically suspicious abnormality. [id number] Electronically Signed: Phong Hollins MD at 13:56 EST ,
--- NOTE | 2024-07-21 12:30 | BD_ITS ---
STUDY: DUAL ENERGY X-RAY ABSORPTIOMETRY / DXA REASON FOR EXAM: Female, 64 years old. Z13.820 TECHNIQUE: Bone Mineral Density (BMD) measurements of lumbar spine and bilateral hips were obtained. COMPARISON: Comparison is made with prior study dated May 29, 2022. FINDINGS: Lumbar Spine (L1-L4): g/cm2 (0.857) / T-score (-1.7) / Z-score (0.1) Findings are suggestive of osteopenia with a moderate fracture risk. Left Femur Total: g/cm2 (0.931) / T-score (-0.1) / Z-score (1.2) Left Femoral Neck: g/cm2 (0.729) / T-score (-1.1) / Z-score (0.5) Right Femur Total: g/cm2 (0.910) / T-score (-0.3) / Z-score (1.0) Right Femoral Neck: g/cm2 (0.702) / T-score (-1.3) / Z-score (0.2) The T-Scores on the most recent prior examination were: Lumbar Spine (L1-L4): There has been improvement of bone density since the previous examination. Left Femur Total: which represents a worsening of 0.1%. Right Femur Total: which represents an improvement of 2%. BD/Dexa Bone Density Study IMPRESSION: The patient is considered osteopenic as outlined below according to World Marquise Organization (WHO) criteria with a moderate fracture risk. There has been improvement of bone density since the previous examination. Reference Information: The T-score is the number of standard deviations above or below the standard which is normal for young adults at their peak bone mineral density. The World Health Organization (WHO) interprets the T-scores as follows: Above -1 Normal bone density Between -1 and -2.5 Osteopenia Equal to / or below -2.5 Osteoporosis As a practical clinical guideline, osteopenia may be graded as follows: Mild -1 through -1.5 Moderate -1.6 through -2.0 Severe -2.1 through -2.4 The Z-score is the number of standard deviations above or below age-matched controls. A Z-score of less than -1.5 would be considered abnormal. References: 1. NIH Osteoporosis and Related Bone Diseases www osteo.org 2. International Society for Clinical Densitometry www iscd.org 3. National Osteoporosis Foundation www nof.org Electronically Signed: Phong Hollins MD at 10:19 EST ,
== END | disposition home or self-care (01) ==
PROVIDERS: PCP Preventive Medicine Occupational Medicine; Referring Provider Nurse Practitioner Family; Visit Provider Nurse Practitioner Family
DX: Z12.31 Encounter for screening mammogram for malignant neoplasm of breast (principal); Z13.820 Encounter for screening for osteoporosis; M85.89 Other specified disorders of bone density and structure, multiple sites
CPT/HCPCS: 77063; 77067; 77080

== ENCOUNTER → 2025-01-28 | Outpatient (CLI) | payer MEDICARE, OTHER, SELFPAY ==
--- NOTE | 2025-01-28 13:30 | MRI_ITS ---
PROCEDURE: UPPER EXT JOINT ONLY(ROUTINE) 01/28/2025 REASON FOR EXAM: PAIN TECHNIQUE: UPPER EXT JOINT ONLY(ROUTINE) Multiplanar and multisequence images were obtained without IV contrast administration. MRI RIGHT SHOULDER. COMPARISON: RADIOGRAPHS ON 01/27/2025. FINDINGS: Type III acromion. Degenerative joint disease of the acromioclavicular joint. Findings are demonstrated by joint space narrowing, osteophyte formation and degenerative periarticular bone marrow changes. Narrowing of the supraspinatus outlet and impingement on its myotendinous junction. High-grade almost complete tear of the insertional fibers of the supraspinatus tendon. 1.4 cm proximal retraction of the ruptured tendon fibers. Tendinosis with mild partial thickness tear of the insertional fibers of the infraspinatus tendon. Associated 1.42 cm intramuscular synovial/ganglion cyst adjacent to the myotendinous junction. Tendinosis with mild partial thickness tear of the insertional fibers of the subscapularis tendon. Unremarkable teres minor muscle and tendon. No evidence of muscular atrophy. Degenerative fibrocystic changes at the humeral insertion of the rotator cuff tendons. Fluid signal and edema in the subdeltoid/subacromial bursa suggestive of bursitis and/or impingement. The remaining visualized osseous elements are intact with no evidence of fracture or dislocation. The remaining marrow signal is within normal limits. The visualized hyaline cartilage is degenerated. Mild degenerative joint disease of the glenohumeral joint. The glenoid labrum is degenerated. There is mild glenohumeral joint effusion. Mild changes of bicipital tendinosis. Mild subcoracoid effusion. Edema and increased signal of the rotator cuff interval, probably adhesive capsulitis. MRI/Upper Ext Joint Only(Routine) IMPRESSION: High-grade almost complete tear of the insertional fibers of the supraspinatus tendon. 1.4 cm proximal retraction of the ruptured tendon fibers. Tendinosis with mild partial thickness tear of the insertional fibers of the in fraspinatus tendon. Associated 1.32 cm intramuscular synovial/ganglion cyst adjacent to the myotendinous junction. Tendinosis with mild partial thickness tear of the insertional fibers of the mota bscapularis tendon. Degenerated articular cartilage. Degenerated labrum. Mild bicipital tendinosis. Adhesive capsulitis. [facility]
== END | disposition home or self-care (01) ==
LOC: MRI 13:25
PROVIDERS: PCP Nurse Practitioner Family; Referring Provider Orthopaedic Surgery Sports Medicine; Visit Provider Orthopaedic Surgery Sports Medicine
DX: M25.511 Pain in right shoulder (principal); M25.512 Pain in left shoulder
CPT/HCPCS: 73221

== ENCOUNTER 2025-02-22 09:30 | Outpatient (RCR) | payer MEDICARE, OTHER, SELFPAY ==
--- NOTE | 2025-01-31 07:56 | HP.PTEVAL ---
Patient's Visit Information Visit Information Visit Information: ANTONIO EDWARDS is a 64 year old F referred to Physical Therapy by Dr. Bobby Arce MD with a diagnosis of B shoulder pain,. Date of Evaluation: 01/31/25 Physical Therapist: Jacob Negrete, DPT, OCS, CSCS Visit Plan Frequency: 3x /Week Duration: 4-6 Weeks Plan: 3x/week for 2-4 weeks for IE HEP: Posture very important for healing Sleep left side with pillow under right arm or back if possible Avoid aggravating activities, anything that increases your pain. Use hands with upper arm at your side if possible. Avoid lifting overhead with any resistance or out front. Keep shoulder blades moving(circles 20x throughout day) treat with US R shoulder nonthermal until painfree at rest, RC and scap strength and progress to I gym program/HEP as tolerated. ice as needed. Pec stretches. TENS if needed. Subjective Subjective: Last two years or so both shoulder pain , intermittent but worse at night and effecting her sleep. Insidious onset. Plays pickleball and works out regulalrly. . Both shoulders have hurt since. Had MRI Friday and will see Dr. Arce at 8:15 today. Pain is anterior and down lateral uppeer arm. Got injection R last week and it may have helped. Sometimes hard time lifting but maybe a little easier. Dull toothache at rest on R, less so on L. Has not played pickle ball since injured it end December serve incidiee Basic ADLs are still done but slower and painful R shoulder. Works out at [employer], Mil press, db curl, lateral raises, bench press. Regularly until last week. Did machines this weekend with cosmetics presser weight and tolerated it better. Retired. Pain shoulder: Pain Intensity (Out of 10): 2 Pain Intensity Range: 2 and 8 Comment: mostly R Objective Objective: Posture is forward head and slightly protracted scapula. Tender to palpation R supraspinatus moderately. cervical aROM WFL and without pain, scapula move well, slightly limited retraction B. Full UE AROM B but end range R ext rotations, IR and flexion is noticeable pain transiently. 2/20 baseling ache at rest. Full elbow and wrist AROM without pain. reflexes 2/3 bi and tri B. sensation UE WNL to gross light touch. + HK R, + neer R, - B extrotation lag test, - drop arm B. - labral B. strength is 4 in shoulder rotations except R er which is 4-. elevation is 4- B with pain R flexion and empty can. elbow and wrsit strength 4+/5 B. Balance/Special Test Scores Quick DASH Score: 43.1800 Goals Goal 1:: Sleep without waking due to shoulder pain Goal Time Frame: 4-6 Weeks Goal 2:: shoulder pain 0/10 at rest and 1/10 at worst and 90% better Goal Time Frame: 4-6 Weeks Goal 3:: I appropriate HEP to limit future problems Goal Time Frame: 4-6 Weeks Goal 4:: Play pickle ball without increased pain Goal Time Frame: 4-6 Weeks Goal 5:: quickdash score 15 or better Goal Time Frame: 4-6 Weeks Rehabilitation Potential Physical Therapy Diagnosis: Shoulder painb R >L limiting comfortable funciton, likely impingement related and RC stress. Rehabilitation Potential: Good Anticipated Interventions Patient/Client Instruction: Educate patient on: Condition and Plan of Care For the Purpose of:: To decrease pain, To improve nutrient delivery to tissue, To improve muscle performance and motor function, To increase tolerance to activity/condition/position and To improve health of tissue Therapeutic Exercise to Include: Strength training, Postural training, Flexibilty training, Passive ROM, Active ROM and Scapular Strength/Stabilization For the Purpose of:: To decrease pain, To increase ROM, To improve nutrient delivery to tissue, To improve muscle performance and motor function and To increase tolerance to activity/condition/position Manual Therapy Techniques to Include: Mobilization, Passive ROM and Soft tissue mobilization For the Purpose of:: To improve nutrient delivery to tissue, To improve muscle performance and motor function and To increase tolerance to activity/condition/position TENS: Yes Cryotherapy (ice pack, ice massage): Yes Ultrasound (thermal/non thermal): Yes (nonthermal) For the Purpose of:: To decrease pain, To decrease swelling/inflammation and To improve nutrient delivery to tissue Text: Thank you for the opportunity to evaluate your patient. For Medicare and Medicare HMO plans, please review the plan of care and approve it. It will need to be FAXED BACK to us at [phone] for Medicare purposes. For Medicare only, by signing this I certify the plan of care. Please let me know if there are questions or concerns regarding this plan of care. Physician Signature: Date:
--- NOTE | 2025-02-22 10:20 | HP.PTDCSUM ---
Discharge Summary D/C summary: It has been my pleasure to treat ANTONIO EDWARDS referred by Dr. Bobby Arce MD, with the diagnosis of B shoulder pain, for a total of 7 visit(s). Discharge Date: 02/22/25 Please see the following information for a summary of their discharge status. Subjective Subjective: R shoulder RCR in one week. Therapy helps, she has full ROM. played a little pickleball and it hurt though. L one feels good now without pickleball. Still up at night with aggressive activity. No pain lately but is not doing a lot other than workout. Maybe 1/10 last night. Pain shoulder: Pain Intensity (Out of 10): 0 Overall Improvement % Improvement: 60 Objective Objective/Function: Full aROM B shoulders without pain today. Strength is 4/5 in rotations and flexion and ext and abd and bi and tri B , empty can R slightly weak and sore but transient. Goals Goal 1:: Sleep without waking due to shoulder pain Goal Progress: Progressing Goal 2:: shoulder pain 0/10 at rest and 1/10 at worst and 90% better Goal Progress: Progressing Goal 3:: I appropriate HEP to limit future problems Goal Progress: Goal Met Goal 4:: Play pickle ball without increased pain Goal Progress: Not Progressing Goal 5:: quickdash score 15 or better Goal Progress: Not Progressing Plan Plan: d/c to HEP, pt ready for surgry nexxt week. D/C Information Discharge Comments: Pt to have r shoulder surgery next week and resume L shoulder strength after that when able d/c sentence: If there are questions or concerns regarding this patient's physical therapy, please feel free to call me at [phone]. Thank you for the referral of this patient. Sincerely, Jacob Negrete, DPT, OCS, CSCS Balance/Gait/Functional tests Balance/Special Test Scores Quick DASH Score: 43.1800 Improvement % Improvement: 60
== END 2025-02-22 19:00 | disposition home or self-care (01) ==
LOC: PT 09:30
PROVIDERS: PCP Nurse Practitioner Family; Referring Provider Orthopaedic Surgery Sports Medicine; Visit Provider Orthopaedic Surgery Sports Medicine
DX: M25.511 Pain in right shoulder (principal); M25.512 Pain in left shoulder
CPT/HCPCS: 97035; 97110; 97161; 97530

== ENCOUNTER 2025-03-02 09:02 | Day surgery (SDC) | payer MEDICARE, OTHER, SELFPAY ==
[2025-03-02] VITALS (11 sets, daily range): BP systolic 140–162; BP diastolic 69–94; PULSE 72–103; RESP 16; TEMP 36.2–37.1; O2SAT 92–96; BMI 26.6
--- NOTE | 2025-03-02 09:18 | EKG12_ITS ---
Test Reason : PRE OP Blood Pressure : */* mmHG Vent. Rate : 77 BPM Atrial Rate : 77 BPM P-R Int : 140 ms QRS Dur : 74 ms QT Int : 376 ms P-R-T Axes : 73 44 67 degrees QTcB Int : 425 ms Normal sinus rhythm Possible Left atrial enlargement Borderline ECG When compared with ECG of 06-Aug-2015 17:43, No significant change was found Confirmed by JOANNE STEWART, JENN ([id number]), desk editor MALLIKA SANCHEZ ([id number]) on 03/07/2025 8:58:01 AM Referred By: Bobby Arce Confirmed By: JENN RUBIO MD
[2025-03-02] MEDS: Lactated Ringers 1,000 ML 15 ML IV (09:42)
--- NOTE | 2025-03-02 09:49 | PRE.ANES_ITS ---
ASA Classification* ASA Classification ASA Classification: 2 Assessment & Plan Anesthesia* Anesthesia Assessment Anesthesia Assessment: Discussed sedation and/or anesthesia options, risks, benefits, and alternatives with patient/parents/legal guardian/POA. Questions invited. The patient/parents/legal guardian/POA seems to understand and agrees to proceed with anesthesia plan. Reviewed the physical assessment, medical history, allergy history and patient home medications list prior to surgery/procedure/anesthetic and documented any changes. Performed airway and anesthesia risk assessments. Procedural Plan Add'l anesthesia plan details: The plan is for an interscalene nerve block, to be performed by the ZIPPER SETTER LOCKSTITCH independently. The ZIPPER SETTER LOCKSTITCH and MD discussed the benefits, risks, and alternatives to the procedure, including the potential risk of permanent nerve damage with the procedure. The patient verbalized understanding and gave informed consent for the procedure. Opportunity for questions invited. Anesthesia Type Anesthesia Type: General (Phenylephrine GTT as needed for BP control) and Block History Source History Obtained from:: Patient and Chart Anesthesia Focused Assessment* Temperature: 97.2 F Pulse Rate: 79 Blood Pressure: 140/69 Respiratory Rate: 16 Pulse Ox: 96 Oxygen Delivery Method: Room Air Airway Assessment Mouth opens: >3 cm Mallampati Score: II Teeth Condition: Intact Neck Range of motion (ROM): Full ROM Labs Anesthesia Preop lab: CBC WBC 6.5 K/mm3 (4.4-11.0) 05/12/24 08:05 05/12/24 RBC 4.71 M/mm3 (4.2-5.4) 05/12/24 08:05 05/12/24 Hgb 13.0 g/dL (12.0-15.0) 05/12/24 08:05 05/12/24 Hct 41.3 % (37-47) 05/12/24 08:05 05/12/24 Plt Count 390 K/mm3 (150-450) 05/12/24 08:05 05/12/24 CHEMISTRY Potassium 4.6 mmol/L (3.5-5.1) 05/12/24 08:05 05/12/24 Sodium 140 mmol/L (136-145) 05/12/24 08:05 05/12/24 Magnesium 1.9 mg/dL (1.8-2.4) 08/08/15 05:48 08/08/15 BUN 14 mg/dL (7-18) 05/12/24 08:05 05/12/24 Creatinine 0.71 mg/dL (0.55-1.02) 05/12/24 08:05 05/12/24 Glucose 90 mg/dL (74-106) 05/12/24 08:05 05/12/24 COAG Pre-Assessment Diagnosis/Proposed Procedure Planned Operative Procedure(s): RIGHT SHOULDER ARTHROSCOPY SUBCROMIAL DECOMPRESSION RTC REPAIR DECOMPRESSION OF CYST,POSS BICEPS TENODESIS Anesthesia History Anesthesia History - child and adolescent therapist: Anesthesia History - child and adolescent therapist Hx Hospitalization No 02/17/25 12:54 Any Problems With Anesthesia No 02/17/25 12:54 Cholinesterase deficiency No 02/17/25 12:54 You/Your Family Experience No 02/17/25 12:54 fever (hyperthermia) with Relationship Recent Exposure to Contagious No 03/02/25 09:38 Disease Does patient have nerve No 02/17/25 12:54 stimulator Patient instructed to have device shut off --Does patient have Pacemaker No 03/02/25 09:38 or ICD? When Was Last Pacemaker Check QUESTION #4 FULL TEXT: You/Your Family Experience fever (hyperthermia) with Anesthesia Last Oral Intake Last Oral intake: Last Oral Intake NPO since 22:00 03/02/25 09:38 Meds taken in AM with sips of Yes 03/02/25 09:38 water? Meds patient instructed to see chart 03/02/25 09:38 take am of surgery PONV PONV - child and adolescent therapist: PONV - child and adolescent therapist Female Yes 02/17/25 12:54 HX of Motion Sickness No 02/17/25 12:54 HX of N/V After Surgery No 02/17/25 12:54 Non-Smoker Yes 02/17/25 12:54 Duration of Surgery greater Yes 02/17/25 12:54 than 60 minutes Number of Risk Factors 3 02/17/25 12:54 PONV Score Moderate Risk 02/17/25 12:54 Height & Weight Height & Weight: Anesthesia: Height & Weight Height 5 ft 03/02/25 09:38 Weight: 62 kg 03/02/25 09:38 Body Mass Index (BMI) 26.6 03/02/25 09:38 Respiratory Assessment Respiratory Assessment - child and adolescent therapist: Respiratory Tract Infection Hx - child and adolescent therapist Hx Respiratory Tract Infection No 02/17/25 12:54 STOP Sleep Apnea STOP Sleep Apnea - child and adolescent therapist: STOP Sleep Apnea - child and adolescent therapist Hx Hypertension No 02/17/25 12:54 Hx Sleep Apnea No 02/17/25 12:54 CPAP BIPAP Do you snore loudly (louder No 02/17/25 12:54 than talking or can be heard Do you often feel tired/ No 02/17/25 12:54 fatigued/ sleepy during daytime? Has anyone observed you stop No 02/17/25 12:54 breathing during sleep? STOP Results Negative 02/17/25 12:54 QUESTION #5 FULL TEXT : Do you snore loudly (louder than talking or can be heard through closed doors)? Tobacco Use History Tobacco Use History - child and adolescent therapist: Tobacco Use History - child and adolescent therapist Tobacco Use Smoking Status Former smoker 02/17/25 12:54 Hx Tobacco Use No 02/17/25 12:54 Years Smoking Packs Smoked per Day Smoking Cessation Date was No - quit smoking greater 02/17/25 12:54 within the last 15 years than 15 years ago Hx Smoking Cessation Date Hx Smoking Cessation No 02/17/25 12:54 Counseling Hematologic Medial History Hematologic Hx - child and adolescent therapist: Hematologic Medical Hx - senior clinician Hx of Blood Transfusion No 02/17/25 12:54 Hx of Transfusion in last 3 No 02/17/25 12:54 Months Date of Last Transfusion (if within last 3 months) Ever experience any problems No 02/17/25 12:54 with transfusion(s)? Specify any problems Hx of Preganancy in last 3 No 02/17/25 12:54 Months Nurse Filling Out Transfusion DSCHRIBER 02/17/25 12:54 & Questions: Date: 02/17/25 02/17/25 12:54 Time: 12:55 02/17/25 12:54 Patient unable to answer at this time (ie. confused, unrespo /Reproduction History /Reproductive History - child and adolescent therapist: /Reproductive Hx- child and adolescent therapist Hx Now No 02/17/25 12:54 Gestational Age (in weeks): EDC: Hx Hx Para Hx Section SAB No 02/17/25 12:54 Active Medications Active Medications: Current Medications Generic Name Dose Route Start Last Admin Trade Name Freq PRN Reason Stop Dose Admin Lactated Ringer's 1,000 mls @ 15 mls/hr 03/02/25 09:15 03/02/25 09:42 IV 15 mls/hr .Q48H FAYE Administration PFSH Medical History (Updated 02/17/25 @ 13:01 by Saba Wan) Wears glasses Wears contact lenses Post-menopausal History of steroid therapy High cholesterol Former smoker Right rotator cuff tear Left shoulder pain Right shoulder pain Anxiety Home Medications ?Medication ?Instructions ?Recorded ?Last Taken ?Type conjugated estrogens 0.625 mg/gram 0.625 applicatio to pical QWEEK 11/30/18 03/01/25 History vaginal cream (Premarin) calcium carbonate 500 mg PO QDAY 01/27/2508/24 History cranberry 500 mg capsule 500 mg PO QDAY 01/27/2508/24 History duloxetine 60 mg capsule,delayed 60 mg PO DAILY Anxiet y 01/27/25 03/01/25 History release sprinkle multivitamin 1 tab PO QDAY 01/27/2503/01 History xt-ukj-jfvzo 120 mcg-biotin 1,250 1 cap PO DAILY 01/2703/01/25 History mcg-K1 60 pzq-ksvfnuxo-pqam capsule (Hair, Skin And Nails (Herbs)) turmeric 400 mg capsule 500 mg PO DAILY 01/27/2508/24 History Allergy/AdvReac Type Severity Reaction Status Date / Time No Known Allergies Allergy Verified 03/02/25 09:35 Family History Mother Hypertension Father COPD (chronic obstructive pulmonary disease) Surgical History (Updated 02/17/25 @ 13:01 by Saba Wan) Hx of colonoscopy partial intestine removal History of intestinal surgery Hx of breast implants, bilateral Social History Smoking Status: Former smoker how long ago did patient quit smokin alcohol intake: never what type of physical activity do you participate in: walking and running Review of Systems (Anesthesia) ROS Narrative System reviewed and no additional complaints, except as documented.
--- NOTE | 2025-03-02 10:46 | PCM.HP.STD ---
HPI - General HPI Narrative ANTONIO EDWARDS, is a 64 F who presents for right shoulder arthroscopy, subacromial decompression, rotator cuff repair, decompression of the infraspinatus cyst and possible biceps tenodesis. No changes to history and physical exam. Right shoulder marked. Risks alternatives benefits discussed as well as postoperative instructions and narcotic counseling. The patient understood wished to proceed no further questions or concerns. MR#: [id number] Acct: [id number] Name: ANTONIO EDWARDS ANN Rep #: [id number] : 1960 Provider: Dr. Bobby Arce MD Age/Sex: 64/F Location: [facility] [place] Status: Signed Intake Vital Signs 01/28/2508:57 02/10/2514:19 Height 5 ft 5 ft Weight: 137 lb BMI 26.7 Intake Visit Reasons: RIGHT SHOULDER Chief Complaint: Right shoulder surgery Accompanied by: Is patient in pain?: Yes Pain scale (1-10): 2 Allergies No Known Allergies Allergy (Verified 02/10/25 14:20) Medications ?Medication ?Instructions ?Recorded ?Confirmed ?Type conjugated estrogens 0.625 mg/gram 0.625 applicatio topical QWEEK 11/30/18 02/10/25 History vaginal cream (Premarin) calcium carbonate 500 mg PO QDAY 01/27/25 02/10/25 History cranberry 500 mg capsule 500 mg PO QDAY 01/27/25 02/10/25 History duloxetine 60 mg capsule,delayed 60 mg PO DAILY Anxiety 01/27/25 02/10/25 History release sprinkle multivitamin 1 tab PO QDAY 01/27/25 02/10/25 History wd-rlm-ywdun 120 mcg-biotin 1,250 cap PO 01/27/25 02/10/25 History mcg-K1 60 bnr-pfpdzyaa-isny capsule (Hair, Skin And Nails (Herbs)) turmeric 400 mg capsule 500 mg PO DAILY 01/27/25 02/10/25 History Have you fallen in the past year?: No PFSH Medical History Right rotator cuff tear Left shoulder pain Right shoulder pain Anxiety Surgical History partial intestine removal History of intestinal surgery Hx of breast implants, bilateral Family History Mother HypertensionFather COPD (chronic obstructive pulmonary disease) Social History Smoking Status: Former smoker how long ago did patient quit smokin alcohol intake: never what type of physical activity do you participate in: walking and running HPI RIGHT SHOULDER Details: This documentation accurately reflects the service provided and the decisions made by me, Dr. Bobby Arce MD 02/10/25 1154. Part of today?s visit was documented by [ ], acting as scribe. ANTONIO EDWARDS is a 64 year old F here today for FU R shoulder pain, cuff tear. pain better with stopping pickle ball. Supplemental Info [facility] Imaging Services [address] [place] [address] Upper Ext Joint Only(Routine) MR#: [id number] Acct: [id number] Name: ANTONIO EDWARDS ANN Rep #: [id number] : 1960 F 64 From: Gayle Bennett MD PCP: BRADY ORTEGA Status: REG CLI Study: Upper Ext Joint Only(Routine) Date of Exam: 01/28/25 Exam# [id number] Ordering Dr: Bobby Arce MD PROCEDURE: UPPER EXT JOINT ONLY(ROUTINE) 01/28/2025 REASON FOR EXAM: PAIN TECHNIQUE: UPPER EXT JOINT ONLY(ROUTINE) Multiplanar and multisequence images were obtained without IV contrast administration. MRI RIGHT SHOULDER. COMPARISON: RADIOGRAPHS ON 01/27/2025. FINDINGS: Type III acromion. Degenerative joint disease of the acromioclavicular joint. Findings are demonstrated by joint space narrowing, osteophyte formation and degenerative periarticular bone marrow changes. Narrowing of the supraspinatus outlet and impingement on its myotendinous junction. High-grade almost complete tear of the insertional fibers of the supraspinatus tendon. 1.4 cm proximal retraction of the ruptured tendon fibers. Tendinosis with mild partial thickness tear of the insertional fibers of the infraspinatus tendon. Associated 1.42 cm intramuscular synovial/ganglion cyst adjacent to the myotendinous junction. Tendinosis with mild partial thickness tear of the insertional fibers of the subscapularis tendon. Unremarkable teres minor muscle and tendon. No evidence of muscular atrophy. Degenerative fibrocystic changes at the humeral insertion of the rotator cuff tendons. Fluid signal and edema in the subdeltoid/subacromial bursa suggestive of bursitis and/or impingement. The remaining visualized osseous elements are intact with no evidence of fracture or dislocation. The remaining marrow signal is within normal limits. The visualized hyaline cartilage is degenerated. Mild degenerative joint disease of the glenohumeral joint. The glenoid labrum is degenerated. There is mild glenohumeral joint effusion. Mild changes of bicipital tendinosis. Mild subcoracoid effusion. Edema and increased signal of the rotator cuff interval, probably adhesive capsulitis. MRI/Upper Ext Joint Only(Routine) IMPRESSION: High-grade almost complete tear of the insertional fibers of the supraspinatus tendon. 1.4 cm proximal retraction of the ruptured tendon fibers. Tendinosis with mild partial thickness tear of the insertional fibers of the infraspinatus tendon. Associated 1.32 cm intramuscular synovial/ganglion cyst adjacent to the myotendinous junction. Tendinosis with mild partial thickness tear of the insertional fibers of the subscapularis tendon. Degenerated articular cartilage. Degenerated labrum. Mild bicipital tendinosis. Adhesive capsulitis. Reading Location: [place] [address] Coding Level of Care Code Off vis,est,level 4 Diagnoses Right rotator cuff tear M75.101 Right shoulder pain M25.511 Assessment and Plan Assessment and Plan (1) Right rotator cuff tear: Status: Acute Plan: 64 F with R shoulder pain. MRI shows high-grade almost complete tear of the insertional fibers of the supraspinatus tendon. 1.4 cm proximal retraction of the ruptured tendon fibers. Infraspinatous associated 1.32 cm intramuscular synovial/ganglion cyst adjacent to the myotendinous junction. Degenerated labrum and mild bicipital tendinosis. Patient wishes to proceed with surgery this to be a form of right shoulder arthroscopy, subacromial decompression, rotator cuff repair, decompression of the infraspinatus cyst and possible biceps tenodesis. Pros and cons risks and benefits were discussed with the patient including but not limited to infection, pain, stiffness, bleeding, damage to surrounding structures, neurovascular injury, recurrence or retear, failure or wear of hardware or fixation, instability, fracture, deep vein thrombosis and pulmonary embolism, anesthetic risks, , patient dissatisfaction, need for further surgery and other risks. Patient understood and wished to proceed with surgery, and signed the informed consent documentation. (2) Right shoulder pain: Status: Acute Clinical Quality Measures Falls Risk Screening/Assistive Devices Have you fallen in the past year?: No PFSH Medical History (Updated 02/17/25 @ 13:01 by Saba Wan) Wears glasses Wears contact lenses Post-menopausal History of steroid therapy High cholesterol Former smoker Right rotator cuff tear Left shoulder pain Right shoulder pain Anxiety Home Medications ?Medication ?Instructions ?Recorded ?Last Taken ?Type conjugated estrogens 0.625 mg/gram 0.625 applicatio topical QWEEK 11/30/18 03/01/25 History vaginal cream (Premarin) calcium carbonate 500 mg PO QDAY 01/27/25 03/01/25 History cranberry 500 mg capsule 500 mg PO QDAY 01/27/25 03/01/25 History duloxetine 60 mg capsule,delayed 60 mg PO DAILY Anxiety 01/27/25 03/01/25 History release sprinkle multivitamin 1 tab PO QDAY 01/27/25 03/01/25 History tf-qdw-dkevt 120 mcg-biotin 1,250 1 cap PO DAILY 01/27/25 03/01/25 History mcg-K1 60 mru-wxsfzala-kues capsule (Hair, Skin And Nails (Herbs)) turmeric 400 mg capsule 500 mg PO DAILY 01/27/25 03/01/25 History Allergy/AdvReac Type Severity Reaction Status Date / Time No Known Allergies Allergy Verified 03/02/25 09:35 Family History Mother Hypertension Father COPD (chronic obstructive pulmonary disease) Surgical History (Updated 02/17/25 @ 13:01 by Saba Wan) Hx of colonoscopy partial intestine removal History of intestinal surgery Hx of breast implants, bilateral Social History Smoking Status: Former smoker how long ago did patient quit smokin alcohol intake: never what type of physical activity do you participate in: walking and running Vital Signs Vital Signs Vital Signs: 03/02/25 09:38 03/02/25 09:38 03/02/25 09:53 Temperature 97.2 F L 97.2 F L Temperature Source Temporal Pulse Rate 79 79 Respiratory Rate 16 16 Respiratory Pattern Normal Blood Pressure 140/69 H 140/69 H Blood Pressure Mean 92 Blood Pressure Source Monitor Blood Pressure Position Semi-Fowlers Blood Pressure Location Left Arm Pulse Ox 96 96 Oxygen Delivery Method Room Air Room Air Weight Weight: 136 lb 10.986 oz Body Mass Index (BMI) 26.6
[2025-03-02] MEDS: Midazolam 2 MG/2 ML Syringe IV (11:31)
[2025-03-02] MEDS: Cefazolin 1 GM/5 ML Vial 2 GM IV (11:46)
[2025-03-02] MEDS: Lidocaine 1% (5 ml sdv) 5 ML Vial IV (11:53)
[2025-03-02] MEDS: Epinephrine (1 mg/ml) 1 MG/ML VIAL (12:10)
[2025-03-02] MEDS: fentaNYL 100 MCG/2 ML Ampul IV (13:32)
--- NOTE | 2025-03-02 13:49 | DCINST_ITS ---
Discharge Instructions Diet Discharge Diet: No restrictions Activity Lifting Restrictions: no lifting over one pound, ok for pendulums, hand wrist elbow rom gently Additional Activity Instructions:: ok to remove sling at rest, sling for sleep and walking Dressing / Incision Call your doctor if your incision/area has: Continuous Slow Oozing, Sudden Increased Bleeding, Increased Pain/ Swelling, Increased Redness, Foul Smelling Discharge and Swelling at the incision site Call your doctor if you observe: Fever of 101 or Higher, Coldness, Increased Pain and Numbness or Tingling Change Dressing in: leave in place till F/U Cleanse incision/area with: Do not get Incision Wet Additional Dressing/Incision Instructions:: if dressing gets wet, remove, leave steri strips on, and re-dress incisions Follow Up Care Please Follow Up With: Bobby Arce MD When: 2 days (or within 2 weeks) Test Results: Test results from this visit will be discussed in further detail at your follow- up appointment, if applicable. Discharge Plan Admission Attending Provider: Bobby Arce Primary Care Provider: ANDREY SMITH Instructions Patient Instructions: Pendulum (Flexibility) Print Language: [place] Discharge Orders/Prescriptions Prescriptions: New oxycodone-acetaminophen [Percocet] 5-325 mg tablet 1 tab PO Q4H MDD 6 PRN (Reason: pain) 5 Days Qty: 30 0RF No Action calcium carbonate 500 mg calcium (1,250 mg) tablet 500 mg PO QDAY duloxetine 60 mg capsule, delayed rel sprinkle 60 mg PO DAILY multivitamin Tablet 1 tab PO QDAY turmeric 400 mg capsule 500 mg PO DAILY Hair, Skin And Nails (Herbs) 120-1,250-60 mcg capsule 1 cap PO DAILY cranberry 500 mg capsule 500 mg PO QDAY Rx Instructions: administer with meals Premarin 0.625 cream 0.625 applicatio topical QWEEK Referrals / Follow Up: Bobby Arce MD [Med Staff - Active Staff] - ANDREY SMITH NP-C [Primary Care Provider] - Disposition Disposition (needs filled in before D/C Order can be placed): Home, Self Care
--- NOTE | 2025-03-02 13:57 | PCM.OPRPT ---
Problems Associated Problem List Diagnoses (1) Right rotator cuff tear: (2) Superior labrum fwjrqhqf-xq-emuonxinv (SLAP) tear of right shoulder: (3) Impingement of right shoulder: (4) Bursitis of right shoulder: Procedures Musculoskeletal [id number]: Other Procedure See Report Operative Report (Standard) Operative Information Date of Procedure: 03/02/25 Pre-Operative Diagnosis: Right shoulder rotator cuff tear and impingement syndrome and infraspinatus cyst Post-Operative Diagnosis: Right shoulder rotator cuff tear impingement syndrome and SLAP tear Surgery/Procedure Performed: Right shoulder arthroscopy, subacromial decompression, rotator cuff repair, decompression infraspinatus cyst and biceps tenodesis exceptional children teacher assistant: Yes Hole Digger: [email or web address] Tasks completed by assistant plant manager: Retracting Type of Anesthesia: Block,Regional and General RN Documented Start/Stop Times: Operation Date: 03/02/25 11:00 Case Time Into Pre-Op 03/02/25 09:10 Anesthesia Start 03/02/25 11:46 Into Room 03/02/25 11:46 Procedure Start 03/02/25 12:15 Procedure End 03/02/25 13:53 Procedure Start Time: 12:15 Procedure Stop Time: 13:53 Select all DRAINS/GRAFTS/IMPLANTS that apply: Implanted device Implanted device details: arthrex biceps tension tight button, double row arthrex repair for cuff Estimated Blood Loss: 50 Specimen collected: No Description of surgery: Patient brought to the operating room theater. Placed supine on the table. General anesthesia induced. 2 g of IV Ancef administered prior to the start of the case. Patient transferred right side up lateral decubitus beanbag positioner. Axillary roll placed. SCDs on the legs. All bony prominences padded. Upper extremity prepped and draped in the usual sterile fashion with chlorhexidine-based prep solution allowing over 3 minutes drying time prior to draping. 10 pounds of inline traction with the arm in 40 degrees of abduction was used. Preoperative timeout performed to confirm the site patient and the surgery. Began by inserting the arthroscope into the intra-articular portion of the shoulder. Use spinal needle inside out localization to perform an anterior portal through the rotator interval. Did a full diagnostic arthroscopy. Cartilage on the humeral head and the glenoid was normal. LHB origin had tearing up to 70% of the origin, unstable. Tried to debride this, but very unstable and few fibers remaining, so did a tenotomy with ablator to plan for later tenodesis. Labrum normal, contoured this with shaving instrument. The subscapularis was normal, aside from some mild longitudinal fraying. IS and TM normal undersurface. Full thickness full width tear of SS tendon. Delaminated anteriorly, split from lateral to medial. Retracted to mid humeral head. I then placed the arthroscope into the subacromial space and used 2 accessory lateral portals. Did a complete bursectomy for moderate amount of mostly inflammatory bursitis. Multiple trephinations in the area of the IS cyst. Downsloping of AL acromion. Used high speed nette to flatten this by 4mm. Cuff moderately mobile, but lost some tissue at the GT footprint. Cleaned up the margins at the frayed aspect of the cuff. Did a side to side closure, ensuring to capture the laminar layers. Used SMC sliding know, half hitches, cut short. Then 2 arthrex fiber RC soft all suture anchors at the articular margin. These had knotless mechanisms as well as the double loaded fiber tape sutures. I passed the fiber tape sutures medially using good purchase and a scorpion device as well as the knotless mechanism just anterior and posterior to the proposed crisscrossing suture repair stitches. Cut at the splice. Then crisscrossed the sutures and attached to suture limbs total 1 from each anchor to the another Arthrex bio composite 4.75 mm suture anchor for a crisscrossing repair this brought the tendon to the greater tuberosity with 70% coverage. 4 total anchors. I also prepared the tuberosity prior using ablator removing any remaining soft tissue and use the power pick instrument for multiple bony trephination's. I then converted the knotless mechanism medially to create 2 crisscrossing horizontal mattress sutures and then cut the suture short and removed all the stay sutures. I then returned my attention to performing the biceps tenodesis. I made a small 1.5 inch incision centered over the proximal anterior medial aspect of the humerus overlying the long head of the biceps tendon. I carried the dissection down through skin and subcutaneous tissue achieved meticulous hemostasis. Protected the cephalic vein dissected in the interval and identified long head of the biceps. Biceps quite scarred into the groove. Delivered this through the incision to shorten the tendon use the included fiber link suture with a luggage tag type stitch and then passed the suture twice through the tendon from superficial to deep. I then drilled a bicortical hole past the free end of the suture through the biceps tension tight button. I used the finished stock inspector for cortex of the button and then pulled on the free end to deliver the tendon into the tunnel. I cut the suture short irrigated any wet bone dust. Arthroscopy pictures taken and saved onto the system throughout the case. wounds thoroughly irrigated. Meticulous hemostasis achieved. Portal sites cleaned with wet dry dressing followed by closure of the portals and incisions with 2-0 Vicryl suture and 3-0 Monocryl sutures. Steri-Strips Adaptic 4 x 4 gauze ABD dressing with cloth tape and an abduction pillow sling was then placed. Patient woken up from general anesthetic transferred off the operating room table and taken to postanesthetic care unit in stable condition. All sponge needle instrument counts were correct. Plan to the patient discharged home according to day surgery criteria. CPT 18594, 72043, 38318, 45916 Surgical Findings: as above. Complications Complications: No Admit VTE Documentation VTE Present on Admission: No VTE Mechan Device Prophylaxis: SCD's VTE Pharm Prophylaxis ordered?: No Reason prophylaxis not ordered: Treatment Not Indicated
--- NOTE | 2025-03-02 14:39 | PCM.POST.ANE ---
Anesthesia: Postop Eval I Current Vital Signs Temperature: 97.8 F Pulse Rate: 74 Blood Pressure: 162/90 Respiratory Rate: 16 Pulse Ox: 93 Oxygen Delivery Method: Room Air Assessment Airway patent: Yes Spontaneous unlabored respirations: Yes Mental status: Awake and Calm nausea: No Vomiting: No Anesthesia Complication: No Fluid Hydration Crystalloid volume administer (ml): 1,500 Total IV fluid infused: 1,500 Progress Note Anesthesia document: Postop Eval 1 completed: Yes
--- NOTE | 2025-03-02 15:17 | POSTOPAN2_ITS ---
Anesthesia Postop Eval I Sum Postop Eval Completion status Anesthesia document: Postop Eval 1 completed: Yes Anesthesia Postop Eval I Summary Anesthesia Postop Eval I Summary: Anesthesia Postop Eval I: Assessment Summary Airway patent Yes 03/02/25 14:40 PRESS TENDER [email or web address] [email or web address] Spontaneous unlabored Yes 03/02/25 14:40 PRESS TENDER [email or web address] [email or web address] respirations Mental status Awake,Calm 03/02/25 14:40 PRESS TENDER [email or web address] [email or web address] nausea No 03/02/25 14:40 PRESS TENDER [email or web address] [email or web address] Vomiting No 03/02/25 14:40 PRESS TENDER [email or web address] [email or web address] Anesthesia Postop Eval I: Fluid Summary Crystalloid volume administer 1,500 03/02/25 14:40 PRESS TENDER [email or web address] [email or web address] (ml) Colloids volume administered ( ml) Blood Product volume administered (ml) Total IV fluid infused 1,500 03/02/25 14:40 PRESS TENDER [email or web address] [email or web address] Anesthesia Postop Eval I: Summary Notes Anesthesia Complication No 03/02/25 14:40 PRESS TENDER [email or web address] [email or web address] Anesthesia Complication Comment: Post-operative progress note Anesthesia: Postop Eval II Evaluation Mental status: Awake Pain Level: 0 nausea: No Vomiting: No Complications Anesthesia Complication: No
--- NOTE | 2025-03-02 15:17 | PCM.POSTANE2 ---
Anesthesia Postop Eval I Sum Postop Eval Completion status Anesthesia document: Postop Eval 1 completed: Yes Anesthesia Postop Eval I Summary Anesthesia Postop Eval I Summary: Anesthesia Postop Eval I: Assessment Summary Airway patent Yes 03/02/25 14:40 [email or web address] Spontaneous unlabored Yes 03/02/25 14:40 [email or web address] respirations Mental status Awake,Calm 03/02/25 14:40 [email or web address] nausea No 03/02/25 14:40 [email or web address] Vomiting No 03/02/25 14:40 [email or web address] Anesthesia Postop Eval I: Fluid Summary Crystalloid volume administer 1,500 03/02/25 14:40 [email or web address] (ml) Colloids volume administered ( ml) Blood Product volume administered (ml) Total IV fluid infused 1,500 03/02/25 14:40 [email or web address] Anesthesia Postop Eval I: Summary Notes Anesthesia Complication No 03/02/25 14:40 [email or web address] Anesthesia Complication Comment: Post-operative progress note Anesthesia: Postop Eval II Evaluation Mental status: Awake Pain Level: 0 nausea: No Vomiting: No Complications Anesthesia Complication: No
--- NOTE | 2025-03-02 15:48 | SUR.PHASEII ---
Patient ready for discharge, waiting on prescriptions to be delivered.
== END 2025-03-02 16:11 | disposition home or self-care (01) ==
LOC: SDC 09:03 → AC 09:05
PROVIDERS: PCP Nurse Practitioner Family; Referring Provider Orthopaedic Surgery Sports Medicine; Visit Provider Orthopaedic Surgery Sports Medicine
PROC: (CPT 29805; principal; 2025-03-02 10:40)
DX: M75.111 Incomplete rotator cuff tear or rupture of right shoulder, not specified as traumatic (principal); M75.51 Bursitis of right shoulder; M25.811 Other specified joint disorders, right shoulder; M85.611 Other cyst of bone, right shoulder; S43.431A Superior glenoid labrum lesion of right shoulder, initial encounter; X58.XXXA Exposure to other specified factors, initial encounter; Z87.891 Personal history of nicotine dependence
CPT/HCPCS: 29827; 29826; 23430; 29822; 64415; 93005; C1713; J2405

== ENCOUNTER → 2025-04-21 | Outpatient (CLI) | payer MEDICARE, OTHER, SELFPAY | END | disposition home or self-care (01) | LOC: OPMRI 15:22 | PROVIDERS: PCP Nurse Practitioner Family; Referring Provider Orthopaedic Surgery Sports Medicine; Visit Provider Orthopaedic Surgery Sports Medicine | DX: M25.512 Pain in left shoulder (principal) | CPT/HCPCS: 73221 ==

== ENCOUNTER 2025-05-23 09:30 | Outpatient (RCR) | payer MEDICARE, OTHER, SELFPAY ==
--- NOTE | 2025-03-17 07:41 | HP.PTEVAL ---
Patient's Visit Information Visit Information Visit Information: ANTONIO EDWARDS is a 64 year old F referred to Physical Therapy by Dr. Bobby Arce MD with a diagnosis of R RTC, labral repair, DOS: 03/02/25. Date of Evaluation: 03/16/25 Physical Therapist: Steve Jackson DPT Visit Plan Frequency: 2x /Week Duration: 6 Weeks Plan: Go slowly secondary to large tear 1) PROM progressing as tolerated. 2) AAROM once able to complete with minimal pain May use ice as needed for pain control Subjective Subjective: Pt. is here today for her initial with diagnosis of R RTC repair, labral repair. DOS: 03/02/25. Pt. arrives without use of sling. Pt. reports being DCed from sling earlier this week. Pt. reports overall doing well. She did admit to using her arm a little bit. Pt reports doing really well right now. Pt. does have some slight numbness at her medial forearm, physician aware. Pt. has been doing her pendulums daily at home. Pt. is sleeping well without issues. Pt. reports no issues with her incision. No fever, no other issues noted. Pain R shoulder: Pain Intensity (Out of 10): 1 Pain Intensity Range: 0 and 3 Objective Objective: POSTURE: Pt. has normal posture, R shoulder in guarded posture. PALPATION: Pt. has normal healing incisions. No signs of infection. Pt. has tenderness along incisions. NEURO: normal throughout BUEs. ROM: PROM: R shoulder: flexion 90deg, ER 15deg. Pt. had no end feel and minimal pain. MMT: did not test. Pt. has really good ROM, I did urge her to go slow with all of her PROM. I asked her to not use her R arm actively. Pt. did have a larger tear and we would like to give her arm time to heal. Pt. reports understanding. Balance/Special Test Scores Quick DASH Score: 54.5450 Goals Goal 1:: LTG: Pt. to have increased AROM to full of R shoulder without increase in symptoms allowing for increased tolerance to all ADLs. Goal Time Frame: 4-6 Weeks Goal 2:: STG: Pt. to sleep throughout the night without increase in symptoms allowing for improved quality of life. Goal Time Frame: 2-4 Weeks Goal 3:: LTG: Pt. to have symmetrical strength between B shoulders allowing for increased ability to complete all IADLs. Goal Time Frame: 6-8 Weeks Goal 4:: STG: Pt. to have increased PROM to full without increase in R shoulder pain. Goal Time Frame: 2-4 Weeks Rehabilitation Potential Physical Therapy Diagnosis: Pt. has signs and symptoms consistent with R RTC, labral repair, DOS: 03/02/25. Pt. has marked hypomobility, weakness and pain. Pt. would benefit from PT to address the above limitations progressing back to Rehabilitation Potential: Excellent Anticipated Interventions Patient/Client Instruction: Educate patient on: Condition, Plan of Care, Risk Factors and Benefits of Fitness Program For the Purpose of:: To foster healthy habits, To improve decision making, To facilitate caregiver knowledge, To improve self management, To prevent re-injury and To improve ability to perform tasks related to life management Therapeutic Exercise to Include: Strength training, Power training, Flexibilty training, Passive ROM, Active ROM and Scapular Strength/Stabilization For the Purpose of:: To decrease pain, To increase ROM, To increase oxygenation perfusion, To improve muscle performance and motor function, To improve ability to perform ADL's, To improve gait and locomotor functions, To improve health of tissue and To decrease soft tissue restriction Manual Therapy Techniques to Include: Mobilization, Functional dry needling and Soft tissue mobilization Comment: DFM as needed for scar For the Purpose of:: To decrease pain, To increase ROM, To improve nutrient delivery to tissue, To improve ability of physical actions for home/community/work/leisure, To improve gait and locomotor functions, To improve health of tissue and To decrease soft tissue restriction Cryotherapy (ice pack, ice massage): Yes For the Purpose of:: To decrease pain, To increase ROM, To improve nutrient delivery to tissue, To increase oxygenation perfusion and To improve muscle performance and motor function Text: Thank you for the opportunity to evaluate your patient. For Medicare and Medicare HMO plans, please review the plan of care and approve it. It will need to be FAXED BACK to us at [phone] for Medicare purposes. For Medicare only, by signing this I certify the plan of care. Please let me know if there are questions or concerns regarding this plan of care. Physician Signature: Date:
--- NOTE | 2025-04-11 10:24 | HP.PTREVAL ---
Re-Evaluation Intro: Dr. Bobby Arce MD, It has been my pleasure to treat ANTONIO EDWARDS over the last 5 visits for R RTC, labral repair, DOS: 03/02/25. Please see the progress note below for an update on the physical therapy plan of care! Subjective Subjective: Pt. reports overall doing well. Pt. reports no pain currently. Pt. is sleeping well. Pt. is really doing well. Objective Objective/Function: AROM: R shoulder: flexion 180deg, abd 170deg, functional IR L2, functional Er C5. Pt. has great ROM at this point in time. I did initiate some iso metrics today. She is overall doing great. Pt. to schedule further PT to work on strengthening of deltoid and of her RTC. Plan Plan Plan: I gave her isometrics today. Add in progressive light strengthening as long as physician is okay. She has great ROM at this point in time. Balance/Gait/Functional tests Balance/Special Test Scores Quick DASH Score: 54.5450 Goals Goals Goal 1:: LTG: Pt. to have increased AROM to full of R shoulder without increase in symptoms allowing for increased tolerance to all ADLs. Goal Time Frame: 4-6 Weeks Goal Progress: Goal Met Goal 2:: STG: Pt. to sleep throughout the night without increase in symptoms allowing for improved quality of life. Goal Time Frame: 2-4 Weeks Goal Progress: Progressing Goal 3:: LTG: Pt. to have symmetrical strength between B shoulders allowing for increased ability to complete all IADLs. Goal Time Frame: 6-8 Weeks Goal Progress: Progressing Goal 4:: STG: Pt. to have increased PROM to full without increase in R shoulder pain. Goal Time Frame: 2-4 Weeks Goal Progress: Progressing Anticipated Interventions Anticipated Interventions Patient/Client Instruction: Educate patient on: Condition, Plan of Care, Risk Factors and Benefits of Fitness Program For the Purpose of:: To foster healthy habits, To improve decision making, To facilitate caregiver knowledge, To improve self management, To prevent re-injury and To improve ability to perform tasks related to life management Therapeutic Exercise to Include: Strength training, Power training, Flexibilty training, Passive ROM, Active ROM and Scapular Strength/Stabilization For the Purpose of:: To decrease pain, To increase ROM, To increase oxygenation perfusion, To improve muscle performance and motor function, To improve ability to perform ADL's, To improve gait and locomotor functions, To improve health of tissue and To decrease soft tissue restriction Manual Therapy Techniques to Include: Mobilization, Functional dry needling and Soft tissue mobilization Comment: DFM as needed for scar For the Purpose of:: To decrease pain, To increase ROM, To improve nutrient delivery to tissue, To improve ability of physical actions for home/community/work/leisure, To improve gait and locomotor functions, To improve health of tissue and To decrease soft tissue restriction Cryotherapy (ice pack, ice massage): Yes For the Purpose of:: To decrease pain, To increase ROM, To improve nutrient delivery to tissue, To increase oxygenation perfusion and To improve muscle performance and motor function Re-Evaluation Ending Re-evaluation ending: Please do not hesitate to contact me at [phone] by phone or if you have questions or concerns regarding this new plan of care! Sincerely, Steve Jackson DPT
--- NOTE | 2025-05-23 09:42 | HP.PTDCSUM_ITS ---
Discharge Summary D/C summary: It has been my pleasure to treat ANTONIO EDWARDS referred by Dr. Bobby Arce MD, with the diagnosis of R RTC, labral repair, DOS: 03/02/25 for a total of 14 visit(s). Discharge Date: 05/23/25 Please see the following information for a summary of their discharge status. Subjective Subjective: Pt. reports that she has stopped taking her anti inflammatory and has noticed some increased soreness. Pt. reports overall doing better. Pt. repo rts being 80% better overall. Pain R shoulder: Pain Intensity (Out of 10): 1 Left: Pain Intensity (Out of 10): 5 Overall Improvement % Improvement: 80 Objective Objective/Function: AROM: Flexion 180deg, abd 180deg, functional ER C6, functional IR T 10. PROM: full ROM without issues. MMT R: ER 8.4#, IR 18.7#, flex 13.2#, abd 15.8# Pt. does have marked L shoulder pain so difficult to compare side to side today. pt. is having L shoulder surgery in early may. Pt. is overall improving. I did not see any further weakness this date. I would like her to continue strengthening though. I want her to work on ER and deltoid strengthening at home. Pt. to work on this prior to have surgery on her opposite shoulder. I gave her ER and prone deltoid strengthening for HEP. Goals Goal 1:: LTG: Pt. to have increased AROM to full of R shoulder without increase in symptoms allowing for increased tolerance to all ADLs. Goal Progress: Goal Met Goal 2:: STG: Pt. to sleep throughout the night without increase in symptoms allowing for improved quality of life. Goal Progress: Progressing Goal 3:: LTG: Pt. to have symmetrical strength between B shoulders allowing for increased ability to complete all IADLs. Goal Progress: Goal Met Goal 4:: STG: Pt. to have increased PROM to full without increase in R shoulder pain. Goal Progress: Goal Met Plan Plan: Pt. to be DC from PT this date. Overall doing well. She will continue to work on further strengthening I. D/C Information d/c sentence: If there are questions or concerns regarding this patient's physical therapy, please feel free to call me at [phone]. Thank you for the referral of this patient. Sincerely, Steve L Sipos, DPT Balance/Gait/Functional tests Balance/Special Test Scores Quick DASH Score: 54.5450 Improvement % Improvement: 80
== END 2025-05-23 10:34 | disposition home or self-care (01) ==
LOC: PT 09:30
PROVIDERS: PCP Nurse Practitioner Family; Referring Provider Orthopaedic Surgery Sports Medicine; Visit Provider Orthopaedic Surgery Sports Medicine
DX: M75.51 Bursitis of right shoulder (principal); M25.811 Other specified joint disorders, right shoulder; S43.431D Superior glenoid labrum lesion of right shoulder, subsequent encounter; M75.101 Unspecified rotator cuff tear or rupture of right shoulder, not specified as traumatic; M25.511 Pain in right shoulder
CPT/HCPCS: 97110; 97140; 97161; 97530

== ENCOUNTER 2025-06-08 06:40 | Day surgery (SDC) | payer MEDICARE, OTHER, SELFPAY ==
--- NOTE | 2025-05-27 14:50 | PAT.ANESEVAL ---
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 When Was Last Pacemaker Check QUESTION #4 FULL TEXT: You/Your Family Experience fever (hyperthermia) with Anesthesia Last Oral Intake Last Oral intake: Last Oral Intake NPO since Meds taken in AM with sips of water? 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 vessels inspector: PONV - boilers and pressure vessels inspector Female Yes 05/27/25 14:21 HX of Motion Sickness No 05/27/25 14:21 HX of N/V After Surgery No 05/27/25 14:21 Non-Smoker Yes 05/27/25 14:21 Duration of Surgery greater Yes 05/27/25 14:21 than 60 minutes Number of Risk Factors 3 05/27/25 14:21 PONV Score Moderate Risk 05/27/25 14:21 Height & Weight Height & Weight: Anesthesia: Height & Weight Height 5 ft 04/11/25 09:56 Respiratory Assessment Respiratory Assessment - boilers and pressure vessels inspector: Respiratory Tract Infection Hx - boilers and pressure vessels inspector Hx Respiratory Tract Infection No 05/27/25 14:21 STOP Sleep Apnea STOP Sleep Apnea - boilers and pressure vessels inspector: STOP Sleep Apnea - boilers and pressure vessels inspector Hx Hypertension No 05/27/25 14:21 Hx Sleep Apnea No 05/27/25 14:21 CPAP BIPAP Do you snore loudly (louder No 05/27/25 14:21 than talking or can be heard Do you often feel tired/ No 05/27/25 14:21 fatigued/ sleepy during daytime? Has anyone observed you stop No 05/27/25 14:21 breathing during sleep? STOP Results Negative 05/27/25 14:21 QUESTION #5 FULL TEXT : Do you snore loudly (louder than talking or can be heard through closed doors)? 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 Specify any problems Hx of Preganancy in last 3 No 05/27/25 14:21 Months Nurse Filling Out Transfusion JZOLLINGE 05/27/25 14:21 & Questions: Date: 05/27/25 05/27/25 14:21 Time: 14:22 05/27/25 14:21 Patient unable to answer at this time (ie. confused, unrespo /Reproduction History /Reproductive History - boilers and pressure vessels inspector: /Reproductive Hx- boilers and pressure vessels inspector Hx Now No 05/27/25 14:21 Gestational Age (in weeks): EDC: Hx Hx Para Hx Section SAB No 05/27/25 14:21 Does the father of the baby or his family experience fever w Father of the baby Malignant Hypertension history comment [facility], [facility] Medical History Left rotator cuff tear Bursitis of right shoulder Impingement of right shoulder Superior labrum beatwejc-ij-kxjyxywrt (SLAP) tear of right shoulder Wears glasses Wears contact lenses Post-menopausal History of steroid therapy High cholesterol Former smoker Right rotator cuff tear Left shoulder pain Right shoulder pain Anxiety Home Medications ?Medication ?Instructions ?Recorded ?Last Taken ?Type conjugated estrogens 0.625 mg/gram 0.625 applicatio topical QWEEK 11/30/18 03/01/25 History vaginal cream (Premarin) calcium carbonate 500 mg PO QDAY 01/27/25 03/01/25 History cranberry 500 mg capsule 500 mg PO QDAY 01/27/25 03/01/25 History duloxetine 60 mg capsule,delayed 60 mg PO DAILY Anxiety 01/27/25 03/01/25 History release sprinkle multivitamin 1 tab PO QDAY 01/27/25 03/01/25 History nz-axn-drhpx 120 mcg-biotin 1,250 1 cap PO DAILY 01/27/25 03/01/25 History mcg-K1 60 hxq-zosvpsur-cenk capsule (Hair, Skin And Nails (Herbs)) turmeric 400 mg capsule 500 mg PO DAILY 01/27/25 03/01/25 History meloxicam 15 mg tablet 15 mg PO QDAY 04/28/25 Unknown History Held on 05/27/25. Instructions: until after surgery biotin 2,500 mcg capsule 2,500 mcg PO DAILY 05/27/25 Unknown History Allergy/AdvReac Type Severity Reaction Status Date / Time No Known Allergies Allergy Verified 05/27/25 14:16 Family History Mother Hypertension Father COPD (chronic obstructive pulmonary disease) Surgical History Hx of colonoscopy partial intestine removal History of intestinal surgery Hx of breast implants, bilateral Social History Smoking Status: Former smoker how long ago did patient quit smokin alcohol intake: never what type of physical activity do you participate in: walking and running Audit: Pertinent Findings Pertinent Findings EKG Perinent findings: 03/02/2025. Normal sinus rhythm 77 bpm. Possible left atrial argument. No significant change from 08/06/2015. Additional pertinent findings: No additional EKG needed unless new symptom or issue found on day of procedure. Recommendation Anesthesia Recommendation Anesthesia recommendation: OPTIMIZED for anesthesia
[2025-06-08] VITALS (9 sets, daily range): BP systolic 122–161; BP diastolic 56–86; PULSE 70–96; RESP 16–18; TEMP 36.1–36.6; O2SAT 93–100; BMI 27.1
--- OUTSIDE RECORDS SUMMARY | 2025-06-08 06:46 | XMS RPT_ITS | CCD ---
Author Organization [facility] Care Team Providers Care Agency Service Representative Name Role Phone Charo Rich Primary Care Provider Dr. Charo Rich Primary Care Provider Dr. Charo Rich Referring Provider [phone] RYLEY Saucedo Attending Provider Dr. Charo Rich Other Provider Dr. Jefferson Yost Attending Provider Charo Rich Primary Care Provider Charo Rich DO Primary Care Provider [phone] CHARO RICH DO Primary Care Physician CHARO RICH DO Attending Unavailable CHARO RICH DO Primary Care Unavailable YOJANA SIMMONS DO Attending Unavailable CHARO RICH DO Primary Care Unavailable Charo Rich DO Primary Care Provider Dr. Charo Rich DO Primary Care Provider [phone] Dr. Charo Rich DO Attending Provider Dr. Charo Rich DO Referring Provider Fitz THORACIC MEDICINE SPECIALIST-C, Ana Attending Provider Fitz THORACIC MEDICINE SPECIALIST-C, Ana Referring Provider [phone] CHARO RICH Primary Care Unavailable CHARO RICH Primary Care Unavailable ANA BYRNES Attending Unavailable Bobby Arce Attending Unavailable LUIS, ANDREY Primary Care Unavailable LUIS, ANDREY Referring Unavailable Bobby Arce Attending Unavailable LUIS, ANDREY Primary Care Unavailable LUIS, ANDREY Referring Unavailable LUIS, ANDREY Primary Care Unavailable LUIS, ANDREY Referring Unavailable Mollison, Bobby Attending Unavailable Jake, Charo Primary Care Unavailable Mili Mancuso Attending Unavailable Fitz THORACIC MEDICINE SPECIALIST, Ana Referring Unavailable Fitz THORACIC MEDICINE SPECIALIST, Ana Attending Unavailable Jake, Charo Primary Care Unavailable Mollison, Bobby Referring Unavailable LUIS, ANDREY Primary Care Unavailable Angelinaison, Bobby Attending Unavailable Mollison, Bobby Referring Unavailable Mollison, Bobby Attending Unavailable LUIS, ANDREY Primary Care Unavailable Jake, Charo Referring Unavailable Jake, Charo Attending Unavailable Jake, Charo Primary Care Unavailable Mollison, Bobby Referring Unavailable LUIS, ANDREY Primary Care Unavailable Mollison, Bobby Attending Unavailable Mollison, Bobby Attending Unavailable LUIS, ANDREY Primary Care Unavailable Jake, Charo Primary Care Unavailable SkruMili mueller Attending Unavailable Jake, Charo Primary Care Unavailable Skgary, Mili Attending Unavailable Mollison, Bobby Attending Unavailable Jake, Charo Primary Care Unavailable Jake, Charo Referring Unavailable Mollison, Bobby Consulting Unavailable Mollison, Bobby Referring Unavailable LUIS, ANDREY Primary Care Unavailable Yazmin, Bobby Attending Unavailable Rudy Mcgee Attending Unavailable Jake, Charo Primary Care Unavailable LUIS, ANDREY Primary Care Unavailable LUIS, ANDREY Referring Unavailable Mollison, Bobby Attending Unavailable LUIS, ANDREY Primary Care Unavailable Mili Mancuso Attending Unavailable Jake, Charo Primary Care Unavailable SkarmaanckMili Attending Unavailable LUIS, ANDREY Primary Care Unavailable LUIS, ANDREY Referring Unavailable Mollison, Bobby Attending Unavailable LUIS, ANDREY Primary Care Unavailable LUIS, ANDREY Referring Unavailable Mollison, Bobby Attending Unavailable Mollison, Bobby Attending Unavailable Mollison, Bobby Referring Unavailable LUIS, ANDREY Primary Care Unavailable Mollison, Bobby Attending Unavailable Mollison, Bobby Referring Unavailable LUIS, ANDREY Primary Care Unavailable Jake, Charo Primary Care Unavailable Jake, Charo Referring Unavailable Jake, Charo Attending Unavailable Mollison, Bobby Attending Unavailable LUIS, ANDREY Primary Care Unavailable LUIS, ANDREY Referring Unavailable Medications Current Medications Medication Drug Class(es) Dates Sig (Normalized) Sig (Original) Biotin (10 sources) Start: 10-08-2023 biotin qDay, O NE DAILY, 0 Refill(s) Start Date: 10/08/23 Status: Ordered take 1 tablet by mouth once abi y biotin 5 mg tab Take 5 mg by mouth once daily. Active Comment on above: Take 5 mg by mouth o nce daily. calcium carbonate 1500 mg oral tablet (15 sources) Start: 09-18-2018 calcium (as carbonate) 600 mg oral tablet Dose : 1,200 mg = 2 tab(s), Oral, qDay, 0 Refill(s) Start Date: 09/18/18 Status: Ordered Start: 03-19-2018 take 1 tablet by dusty twice daily Calcium Carbonate (Calcium 500) 500 mg calcium (1,250 mg) tablet Active 500 mg PO TWICE A DAY March 18, 2018 11:00pm calcium carbonat e (CALCIUM 500 ORAL) Take by mouth. Active calcium carbonat e (CALCIUM 500 ORAL) Take by mouth. 0 Active Comment on above: Take by mouth. clobetasol propionate 0.0005 mg/mg topical ointment (9 sources) Corticosteroid Start: 09-01-2019 End: 08-21-2021 clobetasol (TEMOVATE) 0.05 % ointment Apply 1 application to affected area twice daily. For 4 weeks then use once weekly for maintenance 30 g 08/21/2021 Active Comment on above: Apply 1 application to affected area twice daily. For 4 weeks then use once weekly for maintenance cranberry fruit extract (CRANBERRY CONCENTRATE ORAL) (8 sources) cranberry fruit extract (CRANBERRY CONCENTRATE ORAL) Take 850 mg by mouth. Active cranberry fruit extract (CRANBERRY CONCENTRATE ORAL) Take 850 mg by mouth. 0 Active Comment on above: Take 850 mg by mouth . Cranberry preparation (2 sources) Non-Standardized Food Allergenic Extract, Non-Standardized Plant Allergenic Extract Start: 4 take 1 capsule by mouth once daily cranberry oral capsule ONE DAILY, 0 Refill(s) Start Date: 10/08/23 Status: Ordered DULoxetine 60 mg delayed release oral capsule (6 sources) Serotonin and Norepinephrine Reuptake Inhibitor Start: 4 End: 5 DULoxetine (CYMBALTA) 60 mg capsule Take 60 mg by mouth. 10/08/2023 Active estrogens, conjugated (senior care) 0.625 mg/ml vaginal cream (18 sources) Estrogen Start: 3 Premarin 0.625 mg/g vaginal cream with applicator 0 Refill(s) Start Date: 05/14/23 Status: Ordered Start: 10-10-2020 End: 05-20-2024 conjugated estrogens (PREMAR IN) vaginal cream Apply 1 gram to vagina 2-3 times weekly. 42.5 g 2 05/20/2024 Active Start: 11-30-2018 Conjugated Est rogens (Premarin) 0.625 cream Active 0.625 APPLICATIO TOPICAL EVERY WEEK November 29, 2018 11:00pm Start: 11-30-2018 Conjugated Est rogens (Premarin) 0.625 cream Active 0.625 APPLICATIO TOPICAL EVERY WEEK November 29, 2018 11:00pm Comment on above: Apply 1 gram to vagi na 2-3 times weekly. flaxseed oil (OMEGA 3 ORAL) (4 sources) End: 05-13-2023 flaxseed oil (OMEGA 3 ORAL) Take by mouth. 270 mg 0 05/13/2023 Discontinued flaxseed oil (OM EGA 3 ORAL) Take by mouth. 270 mg 0 Active Comment on above: Take by mouth. 270 m g lactobacillus acidophilus [id number] unt oral tablet (5 sources) Start: 03-19-2018 Lactobacillus Acidophilus 2 billion cell tablet Active 2000 NMA PO DAILY March 18, 2018 11:00pm Start: 03-19-2018 Lactobacillus Acidophilus Active 2000 MMU CELLS PO DAILY March 18, 2018 11:00pm magnesium oxide 400 mg oral tablet (4 sources) End: 05-13-2023 take 400 mg by mouth once daily MAGNESIUM OXIDE ORAL Take 400 mg by mouth once daily. 0 05/13/2023 Discontinued Comment on above: Take 400 mg by mouth once daily. MULTI-VITAMIN ORAL (8 sources) MULTI-VITAMIN OR AL Take by mouth. Active MULTI-VITAMIN OR AL Take by mouth. 0 Active Comment on above: Take by mouth. Multiple Vitamins oral capsule (2 sources) Start: 03-10-2019 take 1 capsule by mouth once daily Multiple Vitamins oral capsule Dose = 1 cap(s), Oral, Daily, 0 Refill(s) Start Date: 03/10/19 Status: Ordered PARoxetine mesylate 20 mg oral tablet (9 sources) Serotonin Reuptake Inhibitor Start: 08-06-2015 take 10 mg by mouth once daily Paroxetine Hcl 20 MG tablet Active 10 mg PO DAILY August 06, 2015 12:00am Start: 08-06-2015 take 10 mg by mouth once daily Paroxetine Hcl Active 10 MG PO DAILY August 06, 2015 12:00am Start: 08-04-2015 End: 05-13-2023 PARoxetine (PAXIL) 20 mg tab let PEG-3350 with Electrolytes (Eqv-GoLYTELY) oral powder for reconstitution (2 sources) Start: 10-08-2023 PEG-3350 with Electrolytes (Eqv-GoLYTELY) oral powder for reconstitution See Instructions, Take as directed 1 day before colonoscopy. Follow instructions as provided by your GI provider at [facility] # 1 EA, 0 Refill(s), [facility]acy: [id number], 154, cm, 10/08/23 11:43:00 EDT, Height, kg, 10/08/23 11:43:00 EDT, Dosing Weight Start Date: 10/08/23 Status: Ordered potassium gluconate 2.13 meq oral tablet (5 sources) Start: 03-19-2018 take 1 tablet by mouth once daily Potassium Gluconate 500 mg (83 mg) tablet Active 500 mg PO DAILY March 18, 2018 11:00pm POTASSIUM-99 ORAL (4 sources) End: 05-13-2023 POTASSIUM-99 ORAL Take by mouth. 0 05/13/2023 Discontinued POTASSIUM-99 ORA L Take by mouth. 0 Active Comment on above: Take by mouth. predniSONE 10 mg oral tablet (1 source) Start: 04-10-2024 End: 04-19-2024 predniSONE (DELTASONE) 10 mg tablet Take 4 tabs daily for 3 days, then 2 tabs daily for 3 days, then 1 tab daily for 3 days with food. 21 tablet 04/10/2024 04/19/2024 Active Turmeric extract (8 sources) TURMERIC ORAL Ta ke by mouth. Active TURMERIC ORAL Ta ke by mouth. 0 Active Comment on above: Take by mouth. Completed/Discontinued Medications Medication Drug Class(es) Dates Sig (Normalized) Sig (Original) famotidine 20 mg oral tablet (5 sources) Histamine-2 Receptor Antagonist Start: 08-09-2015 End: 03-19-2018 take 1 tablet by mouth once daily Famotidine 20 MG tablet Discontinued 20 mg PO DAILY August 09, 2015 12:00am March 19, 2018 8:47am norethindrone 0.35 mg oral tablet (5 sources) Start: 08-06-2015 End: 03-19-2018 take 1 tablet by mouth once daily Norethindrone (Contraceptive) 0.35 MG tablet Discontinued 0.35 mg PO DAILY August 06, 2015 12:00am March 19, 2018 8:47am pantoprazole 40 mg delayed release oral tablet (5 sources) Proton Pump Inhibitor Start: 08-09-2015 End: 08-09-2015 take 1 tablet by mouth once daily Pantoprazole 40 MG tablet Discontinued 40 mg PO DAILY August 09, 2015 12:00am August 09, 2015 10:36am triamcinolone acetonide 40 mg/ml injectable suspension (1 source) Corticosteroid Start: 03-19-2018 End: 03-19-2018 Kenalog (triamcinolone acetonide) 10 mg/mL suspension for injection Discontinued 10 MG TENDON ONCE 1 March 19, 2018 9:24am March 19, 2018 10:27am Problems Active Problems Problem Classification Problem Date Documented Date Episodic/Chronic Allergic reactions (1 source) Allergic contact dermatitis caused by plant material; Translations: [Allergic contact dermatitis due to plants, except food] 04-10-2024 Episodic Anxiety disorders (2 sources) Anxiety disorder 12-07-2019 Chronic Diseases of white blood cells (5 sources) Leukocytosis; Translations: [Elevated white blood cell count, unspecified] 08-06-2015 Chronic Genitourinary symptoms and ill-defined conditions (2 sources) Unspecified symptoms and signs involving the genitourinary system; Translations: [Unspecified symptoms and signs involving the genitourinary system] Onset: 10-15-2023 Episodic Menopausal disorders (4 sources) Atrophic vaginitis; Translations: [Menopausal syndrome] 03-10-2019 Chronic Mood disorders (5 sources) Depressive disorder; Translations: [Depressive disorder] Onset: 05-20-2024 10-01-2023 Chronic Other and unspecified benign neoplasm (2 sources) Adenomatous polyp of colon 10-07-2023 Episodic Other connective tissue disease (1 source) Unspecified rotator cuff tear or rupture of right shoulder, not specified as traumatic; Translations: [Unspecified rotator cuff tear or rupture of right shoulder, not specified as traumatic] Onset: 04-11-2025 Episodic Other connective tissue disease (1 source) Bursitis of right shoulder; Translations: [Bursitis of right shoulder] Onset: 04-11-2025 Episodic Other connective tissue disease (1 source) Incomplete rotator cuff tear or rupture of right shoulder, not specified as traumatic; Translations: [Incomplete rotator cuff tear or rupture of right shoulder, not specified as traumatic] Onset: 03-10-2025 Episodic Other non-traumatic joint disorders (1 source) Pain in left shoulder; Translations: [Pain in left shoulder] Onset: 04-30-2025 Episodic Other non-traumatic joint disorders (1 source) Other specified joint disorders, right shoulder; Translations: [Other specified joint disorders, right shoulder] Onset: 04-11-2025 Episodic Other non-traumatic joint disorders (1 source) Pain in right shoulder; Translations: [Pain in right shoulder] Onset: 03-04-2025 Episodic Sprains and strains (1 source) Superior glenoid labrum lesion of right shoulder, initial encounter; Translations: [Superior glenoid labrum lesion of right shoulder, initial encounter] Onset: 04-11-2025 Episodic Unclassified (2 sources) History of SARS-CoV-2 09-11-2021 Unclassified (4 sources) Patient encounter status 09-18-2020 Viral infection (6 sources) Disease caused by 2019-nCoV; Translations: [COVID-19] Episodic Past or Other Problems Problem Classification Problem Date Documented Da te Episodic/Chronic Intestinal obstruction without hernia (13 sources) Small bowel obstruction; Translations: [Unspecified intestinal obstruction, unspecified as to partial versus complete obstruction] Onset: 09-08-2015 09-08-2015 Episodic Other screening for suspected conditions (not mental disorders or infectious disease) (1 source) Encounter for screening mammogram for malignant neoplasm of breast; Translations: [Encounter for screening mammogram for malignant neoplasm of breast] Onset: 09-03-2024 Episodic Unclassified (4 sources) partial intestine removal 01-28-2022 Results Test Name Value Interpretation Reference Range Facility Orthopedic Visit Reporton Orthopedic Visit Report [facility] [address] [place] [id number] OFFICE VISIT Date of Service: 04/28/25 MR#: [id number] Acct: [id number] Name: AZALEA EDWARDS Rep #: [id number] : 1960 Provider: Dr. Bobby duron MD Age/Sex: 64/F Location: [facility] [place] Status: Signed Intake Vital Signs 04/11/25 09:56 Height 5 ft Weight: 141 lb BMI 27.5 Intake Visit Reasons: LEFT SHOULDER Chief Complaint: MRI Review Accompanied by: Self Is patient in pain?: Yes Allergies No Known Allergies Allergy (Verified 04/28/25 08:23) Medications ???Medication ???Instructions ???Recorded ???Confirmed ???Type conjugated estrogens 0.625 mg/gram 0.625 applicatio topical QWEEK 0 11/30/18 04/28/25 History vaginal cream (Premarin) calcium carbonate 500 mg PO QDAY 01/27/25 04/28/25 H istory cranberry 500 mg capsule 500 mg PO QDAY 01/27/25 04/28/25 H istory duloxetine 60 mg capsule,delayed 60 mg PO DAILY Anxiety 01/27/25 History release sprinkle multivitamin 1 tab PO QDAY 01/27/25 04/28/25 Hi story un-rfh-faloz 120 mcg-biotin 1,250 1 cap PO DAILY 01/27/25 04/28/25 History mcg-K1 60 dyo-xvhpngvf-tkac capsule (Hair, Skin And Nails (Herbs)) turmeric 400 mg capsule 500 mg PO DAILY 01/27/25 04/28/25 History meloxicam 15 mg tablet 15 mg PO QDAY 04/28/25 04/28/25 Hi story Have you fallen in the past year?: No PFSH Medical History Left rotator cuff tear Bursitis of right shoulder Impingement of right shoulder Superior labrum tucxuggv-qy-esxortdbw (SLAP) tear of right shoulder Wears glasses Wears contact lenses Post-menopausal History of steroid therapy High cholesterol Former smoker Right rotator cuff tear Left shoulder pain Right shoulder pain Anxiety Surgical History Hx of colonoscopy partial intestine removal History of intestinal surgery Hx of breast implants, bilateral Family History Mother Hypertension Father COPD (chronic obstructive pulmonary disease) Social History Smoking Status: Former smoker how long ago did patient quit smokin alcohol intake: never what type of physical activity do you participate in: walking and running HPI LEFT SHOULDER Details: This documentation accurately reflects the service provided and the decisions made by me, Dr. Bobby Arce MD 04/28/25 0806. Part of today???s visit was documented by [ ], acting as scribe. AZALEA EDWARDS is a 64 year old F here today for FU L shoulder MRI. This has been going on now for over 3 months. It got worse as she had to use the shoulder more after the right shoulder surgery. The right shoulder is doing perfectly fine no pain or difficulties there doing active physical therapy and the surgery was about 2 months ago now. She has been on meloxicam for over a month it is does help a little bit but the shoulder is still quite sore on the left side even worse than the right side was before surgery. Supplemental Info [facility] [address] [place] [address] Upper Ext Joint Only(Routine) MR#: [id number] Acct: [id number] Name: AZALEA EDWARDS Rep #: [id number] : 1960 F 64 From: Mahesh Hughes MD PCP: BRADY ORTEGA Status: REG CLI Study: Upper Ext Joint Only(Routine) Date of Exam: 04/21/25 Exam# [id number] Ordering Dr: Bobby Arce MD PROCEDURE: UPPER EXT JOINT ONLY(ROUTINE) 04/21/2025 REASON FOR EXAM: PAIN, EVAL CUFF TECHNIQUE: Procedure Code: MRIUEJ Modality: MR Procedure: UPPER EXT JOINT ONLY(ROUTINE) T1, T2, PD, multiplanar and multisequence images of the left shoulder were obtained without IV contrast administration. COMPARISON: None FINDINGS: Bone Marrow: There is subcortical cyst formation deep to the supraspinatus insertion. AC joint: There is moderate AC joint hypertrophy without evidence of separation. There is a type 3 acromion with impingement configuration. Rotator cuff: There is no significant muscular atrophy. There is a full-thickness 80% width tear of the distal supraspinatus, without retraction. There is severe distal infraspinatus tendinopathy without full-thickness tear or retraction. There is severe distal subscapularis tendinopathy without tear. The teres minor appears intact. Labrum: The labrum appears intact. Effusion: There is a moderate joint effusion which extends in the subacromial subdeltoid bursa. Cartilage: Ther (more content not included)... Normal [facility] Upper Ext Joint Only(Routine )on 04-21-2025 Upper Ext Joint Only(Routine) [facility] [address] [place], [place] [id number] Upper Ext Joint Only(Routine) MR#: [id number] Acct: [id number] Name: AZALEA EDWARDS Rep #: [id number] : 1960 F 64 From: Mahesh Hughes MD PCP: BRADY ORTEGA Status: REG CLI Study: Upper Ext Joint Only(Routine) Date of Exam: 1 Exam# [id number] Ordering Dr: Bobby Arce MD PROCEDURE: UPPER EXT JOINT ONLY(ROUTINE) 04/21/2025 REASON FOR EXAM: PAIN, EVAL CUFF TECHNIQUE: Procedure Code: MRIUEJ Modality: MR Procedure: UPPER EXT JOINT ONLY(ROUTINE) T1, T2, PD, multiplanar and multisequence images of the left shoulder were obtained without IV contrast administration. COMPARISON: None FINDINGS: Bone Marrow: There is subcortical cyst formation deep to the supraspinatus insertion. AC joint: There is moderate AC joint hypertrophy without evidence of separation. There is a type 3 acromion with impingement configuration. Rotator cuff: There is no significant muscular atrophy. There is a full-thickness 80% width tear of the distal supraspinatus, without retraction. There is severe distal infraspinatus tendinopathy without full-thickness tear or retraction. There is severe distal subscapularis tendinopathy without tear. The teres minor appears intact. Labrum: The labrum appears intact. Effusion: There is a moderate joint effusion which extends in the subacromial subdeltoid bursa. Cartilage: There is no focal chondromalacia. Biceps tendon: There is severe tendinopathy of the intra and extra-articular portion of the biceps tendon without full-thickness tear or retraction. MRI/Upper Ext Joint Only(Routine) IMPRESSION: There is subcortical cyst formation deep to the supraspinatus insertion. There is moderate AC joint hypertrophy without evidence of separation. There is a type 3 acromion with impingement configuration. There is no significant muscular atrophy. There is a full-thickness 80% width tear of the distal supraspinatus, without retraction. There is severe distal infraspinatus tendinopathy without full-thickness tear or retraction. There is severe distal subscapularis tendinopathy without tear. There is a moderate joint effusion which extends in the subacromial subdeltoid bursa. There is severe tendinopathy of the intra and extra-articular portion of the biceps tendon without full-thickness tear or retraction. Reading Location: [facility] CC: BRADY SMITH; Dr. Bobby Arce MD Trading Analyst: Signed Normal [facility] Orthopedic Visit Reporton Orthopedic Visit Report [facility] [address] [place] [address] OFFICE VISIT Date of Service: 04/11/25 MR#: [id number] Acct: [id number] Name: AZALEA EDWARDS Rep #: [id number] : 1960 Provider: Dr. Bobby duron MD Age/Sex: 64/F Location: [facility] [place] Status: Signed Intake Vital Signs 03/15/25 13:35 04/11/25 09:56 Height 5 ft 5 ft Weight: 137 lb 141 lb BMI 26.7 27.5 Intake Visit Reasons: RIGHT SHOULDER Chief Complaint: Right Shoulder 6 week Post-Op Accompanied by: Self Is patient in pain?: No Allergies No Known Allergies Allergy (Verified 04/11/25 09:59) Medications ???Medication ???Instructions ???Recorded ???Confirmed ???Type conjugated estrogens 0.625 mg/gram 0.625 applicatio topical QWEEK 0 11/30/18 04/11/25 History vaginal cream (Premarin) calcium carbonate 500 mg PO QDAY 01/27/25 04/11/25 H istory cranberry 500 mg capsule 500 mg PO QDAY 01/27/25 04/11/25 H istory duloxetine 60 mg capsule,delayed 60 mg PO DAILY Anxiety 01/27/25 History release sprinkle multivitamin 1 tab PO QDAY 01/27/25 04/11/25 Hi story ne-gab-fziuh 120 mcg-biotin 1,250 1 cap PO DAILY 01/27/25 04/11/25 History mcg-K1 60 hkj-rflzbfzq-fajf capsule (Hair, Skin And Nails (Herbs)) turmeric 400 mg capsule 500 mg PO DAILY 01/27/25 04/11/25 History ibuprofen 200 mg capsule 200 mg PO Q6H PRN 03/04/25 5 History Have you fallen in the past year?: No PFSH Medical History Bursitis of right shoulder Impingement of right shoulder Superior labrum igykyqye-nm-lnkwfafvv (SLAP) tear of right shoulder Wears glasses Wears contact lenses Post-menopausal History of steroid therapy High cholesterol Former smoker Right rotator cuff tear Left shoulder pain Right shoulder pain Anxiety Surgical History Hx of colonoscopy partial intestine removal History of intestinal surgery Hx of breast implants, bilateral Family History Mother Hypertension Father COPD (chronic obstructive pulmonary disease) Social History Smoking Status: Former smoker how long ago did patient quit smokin alcohol intake: never what type of physical activity do you participate in: walking and running HPI RIGHT SHOULDER Details: This documentation accurately reflects the service provided and the decisions made by me, Dr. Bobby Arce MD 04/11/25 9801. Part of today???s visit was documented by [ ], acting as scribe. AZALEA EDWARDS is a 64 year old F here today for 6 weeks FU Right shoulder arthroscopy, subacromial decompression, rotator cuff repair, decompression infraspinatus cyst and biceps tenodesis, complicated by LABC neuropraxia. Doing well having some tingling at the anterolateral forearm still. Is having left shoulder pain similar to on the right side with prior x-rays and failed physical therapy with pain at the anterior lateral aspect of the shoulder. No problems with the right shoulder that actually feels better than the left side at this point uses it to open doors. Coding Level of Care Code Off vis,est,level 3 Diagnoses Superior labrum ptridspu-vi-rrqnmkaul (SLAP) tear of right shoulder S43.431A Bursitis of right shoulder M75.51 Impingement of right shoulder M25.811 Right rotator cuff tear M75.101 Assessment and Plan Assessment and Plan (1) Superior labrum kfwzzmbq-av-cczdvlmhm (SLAP) tear of right shoulder: Status: Acute Plan: AZALEA EDWARDS is a 64 year old F here today for 6 weeks FU Right shoulder arthroscopy, subacromial decompression, rotator cuff repair, decompression infraspinatus cyst and biceps tenodesis, complicated by LABC neuropraxia. Patient may start strengthening exercises of the upper extremity I will also go ahead and order a left shoulder MRI for continued and ongoing pain that was nonresponsive to physical therapy. (2) Bursitis of right shoulder: Status: Acute (3) Impingement of right shoulder: Status: Acute (4) Right rotator cuff tear: Status: Acute Clinical Quality Measures Falls Risk Screening/Assistive Devices Have you fallen in the past year?: No Ortho Exam General General: Yes no acute distress Neurologic: Yes alert and Yes oriented x3 Psychologic: Yes reasonable and appropriate Right Wrist/Hand Motor: EPL: 5, FDP-2: 5, 1st Dorsal Interosseous: 5 and APB: 5 Sensation: Radial: I, Ulnar: I and Median: I WRIST: AL forearm numbness isolated. Right Shoulder Skin/Wound: Yes CDI, Yes healed, No ecchymosis, No erythema and No swelling Testing: Positive AROM-Forward Elevation 0-180 a (more content not included)... Normal [facility] Re-Evaluation - PT (1)on Re-Evaluation - PT (1) [facility] Physical Therapy [facility] [address] [place] [address]. [address] [place] [address] / REEVALUATION / MEDICARE RECERTIFICATION PHYSICAL THERAPY MR#: [id number] Acct: [id number] Name: AZALEA EDWARDS ANN Rep #: [id number] : 1960 64 From: Steve Jackson DPT Referring Dr.: Dr. Bobby Arce MD Status:REG RCR Insurance: MEDICARE PART A B [facility] Re-Evaluation Intro: Dr. Bobby Arce MD, It has been my pleasure to treat AZALEA EDWARDS over the last 5 visits for R RTC, labral repair, DOS: 03/02/25. Please see the progress note below for an update on the physical therapy plan of care! Subjective Subjective: Pt. reports overall doing well. Pt. reports no pain currently. Pt. is sleeping well. Pt. is really doing well. Objective Objective/Function: AROM: R shoulder: flexion 180deg, abd 170deg, functional IR L2, functional Er C5. Pt. has great ROM at this point in time. I did initiate some iso metrics today. She is overall doing great. Pt. to schedule further PT to work on strengthening of deltoid and of her RTC. Plan Plan Plan: I gave her isometrics today. Add in progressive light strengthening as long as physician is okay. She has great ROM at this point in time. Balance/Gait/Function al tests Balance/Special Test Scores Quick DASH Score: 54.5450 Goals Goals Goal 1:: LTG: Pt. to have increased AROM to full of R shoulder without increase in symptoms allowing for increased tolerance to all ADLs. Goal Time Frame: 4-6 Weeks Goal Progress: Goal Met Goal 2:: STG: Pt. to sleep throughout the night without increase in symptoms allowing for improved quality of life. Goal Time Frame: 2-4 Weeks Goal Progress: Progressing Goal 3:: LTG: Pt. to have symmetrical strength between B shoulders allowing for increased ability to complete all IADLs. Goal Time Frame: 6-8 Weeks Goal Progress: Progressing Goal 4:: STG: Pt. to have increased PROM to full without increase in R shoulder pain. Goal Time Frame: 2-4 Weeks Goal Progress: Progressing Anticipated Interventions Anticipated Interventions Patient/Client Instruction: Educate patient on: Condition, Plan of Care, Risk Factors and Benefits of Fitness Program For the Purpose of:: To foster healthy habits, To improve decision making, To facilitate caregiver knowledge, To improve self management, To prevent re-injury and To improve ability to perform tasks related to life management Therapeutic Exercise to Include: Strength training, Power training, Flexibilty training, Passive ROM, Active ROM and Scapular Strength/Stabilizatio n For the Purpose of:: To decrease pain, To increase ROM, To increase oxygenation perfusion, To improve muscle performance and motor function, To improve ability to perform ADL's, To improve gait and locomotor functions, To improve health of tissue and To decrease soft tissue restriction Manual Therapy Techniques to Include: Mobilization, Functional dry needling and Soft tissue mobilization Comment: DFM as needed for scar For the Purpose of:: To decrease pain, To increase ROM, To improve nutrient delivery to tissue, To improve ability of physical actions for home/community/work/l eisure, To improve gait and locomotor functions, To improve health of tissue and To decrease soft tissue restriction Cryotherapy (ice pack, ice massage): Yes For the Purpose of:: To decrease pain, To increase ROM, To improve nutrient delivery to tissue, To increase oxygenation perfusion and To improve muscle performance and motor function Re-Evaluation Ending Re-evaluation ending: Please do not hesitate to contact me at [phone] by phone or if you have questions or concerns regarding this new plan of care! Sincerely, Steve Jackson DPT 04/11/25 1024 CC: BRADY SMITH; Dr. Bobby Arce MD CLS Signed For Medicare only, by signing this I certify the plan of care. Physicians Signature Date Normal [facility] Inital Evaluation (1) - PTon 03-17-2025 Inital Evaluation (1) - PT [facility] Physical Therapy [facility] [address] [place] [address] / REHABILITATION SERVICES INITIAL EVALUATION MR#: [id number] Acct: [id number] Name: AZALEA EDWARDS Rep #: [id number] : 1960 64 From: Steve BALDWINT Referring Dr.: Dr. Bobby Arce MD Status: R EG RCR Insurance: MEDICARE PART A B [facility] Patient's Visit Information Visit Information Visit Information: AZALEA EDWARSD is a 64 year old F referred to Physical Therapy by Dr. Bobby Arce MD with a diagnosis of R RTC, labral repair, DOS: 03/02/25. Date of Evaluation: 03/16/25 Physical Therapist: Steve Jackson DPT Visit Plan Frequency: 2x /Week Duration: 6 Weeks Plan: Go slowly secondary to large tear 1) PROM progressing as tolerated. 2) AAROM once able to complete with minimal pain May use ice as needed for pain control Subjective Subjective: Pt. is here today for her initial with diagnosis of R RTC repair, labral repair. DOS: 03/02/25. Pt. arrives without use of sling. Pt. reports being DCed from sling earlier this week. Pt. reports overall doing well. She did admit to using her arm a little bit. Pt reports doing really well right now. Pt. does have some slight numbness at her medial forearm, physician aware. Pt. has been doing her pendulums daily at home. Pt. is sleeping well without issues. Pt. reports no issues with her incision. No fever, no other issues noted. Pain R shoulder: Pain Intensity (Out of 10): 1 Pain Intensity Range: 0 and 3 Objective Objective: POSTURE: Pt. has normal posture, R shoulder in guarded posture. PALPATION: Pt. has normal healing incisions. No signs of infection. Pt. has tenderness along incisions. NEURO: normal throughout BUEs. ROM: PROM: R shoulder: flexion 90deg, ER 15deg. Pt. had no end feel and minimal pain. MMT: did not test. Pt. has really good ROM, I did urge her to go slow with all of her PROM. I asked her to not use her R arm actively. Pt. did have a larger tear and we would like to give her arm time to heal. Pt. reports understanding. Balance/Special Test Scores Quick DASH Score: 54.5450 Goals Goal 1:: LTG: Pt. to have increased AROM to full of R shoulder without increase in symptoms allowing for increased tolerance to all ADLs. Goal Time Frame: 4-6 Weeks Goal 2:: STG: Pt. to sleep throughout the night without increase in symptoms allowing for improved quality of life. Goal Time Frame: 2-4 Weeks Goal 3:: LTG: Pt. to have symmetrical strength between B shoulders allowing for increased ability to complete all IADLs. Goal Time Frame: 6-8 Weeks Goal 4:: STG: Pt. to have increased PROM to full without increase in R shoulder pain. Goal Time Frame: 2-4 Weeks Rehabilitation Potential Physical Therapy Diagnosis: Pt. has signs and symptoms consistent with R RTC, labral repair, DOS: 03/02/25. Pt. has marked hypomobility, weakness and pain. Pt. would benefit from PT to address the above limitations progressing back to Rehabilitation Potential: Excellent Anticipated Interventions Patient/Client Instruction: Educate patient on: Condition, Plan of Care, Risk Factors and Benefits of Fitness Program For the Purpose of:: To foster healthy habits, To improve decision making, To facilitate caregiver knowledge, To improve self management, To prevent re-injury and To improve ability to perform tasks related to life management Therapeutic Exercise to Include: Strength training, Power training, Flexibilty training, Passive ROM, Active ROM and Scapular Strength/Stabilizatio n For the Purpose of:: To decrease pain, To increase ROM, To increase oxygenation perfusion, To improve muscle performance and motor function, To improve ability to perform ADL's, To improve gait and locomotor functions, To improve health of tissue and To decrease soft tissue restriction Manual Therapy Techniques to Include: Mobilization, Functional dry needling and Soft tissue mobilization Comment: DFM as needed for scar For the Purpose of:: To decrease pain, To increase ROM, To improve nutrient delivery to tissue, To improve ability of physical actions for home/community/work/l eisure, To improve gait and locomotor functions, To improve health of tissue and To decrease soft tissue restriction Cryotherapy (ice pack, ice massage): Yes For the Purpose of:: To decrease pain, To increase ROM, To improve nutrient delivery to tissue, To increase oxygenation perfusion and To improve muscle performance and motor function Text: Thank you for the opportunity to evaluate your patient. For Medicare and Medicare HMO plans, please review the plan of care and approve it. It will need to be FAXED BACK to us at [phone] for Medicare purposes. For Medicare only, by signing this I certify the plan of care. Please let me know if there are questions or concerns re (more content not included)... Normal [facility] Orthopedic Visit Reporton Orthopedic Visit Report [facility] [address] [place] [address] OFFICE VISIT Date of Service: 03/15/25 MR#: [id number] Acct: [id number] Name: AZALEA EDWARDS Rep #: [id number] : 1960 Provider: Dr. Bobby duron MD Age/Sex: 64/F Location: [facility] Status: Signed Intake Vital Signs 02/10/25 20:32 03/02/25 09:38 03/15/25 13:35 Height 5 ft 5 ft 5 ft Weight: 137 lb BMI 26.7 Intake Visit Reasons: right shoulder Chief Complaint: Right Shoulder 2 week Post-Op Accompanied by: Self Is patient in pain?: No Allergies No Known Allergies Allergy (Verified 03/15/25 13:38) Medications ???Medication ???Instructions ???Recorded ???Confirmed ???Type conjugated estrogens 0.625 mg/gram 0.625 applicatio topical QWEEK 0 11/30/18 03/15/25 History vaginal cream (Premarin) calcium carbonate 500 mg PO QDAY 01/27/25 03/15/25 H istory cranberry 500 mg capsule 500 mg PO QDAY 01/27/25 03/15/25 H istory duloxetine 60 mg capsule,delayed 60 mg PO DAILY Anxiety 01/27/25 History release sprinkle multivitamin 1 tab PO QDAY 01/27/25 03/15/25 Hi story do-ddr-metjf 120 mcg-biotin 1,250 1 cap PO DAILY 01/27/25 03/15/25 History mcg-K1 60 inm-fkohppby-thkd capsule (Hair, Skin And Nails (Herbs)) turmeric 400 mg capsule 500 mg PO DAILY 01/27/25 03/15/25 History oxycodone-acetaminoph en 5 mg-325 1 tab PO Q4H PRN pain 5 days #30 0 03/02/25 03/15/25 Rx mg tablet (Percocet) tabs ibuprofen 200 mg capsule 200 mg PO Q6H PRN 03/04/25 5 History Have you fallen in the past year?: No PFSH Medical History Bursitis of right shoulder Impingement of right shoulder Superior labrum hdmhbeof-tu-unuhnbaxy (SLAP) tear of right shoulder Wears glasses Wears contact lenses Post-menopausal History of steroid therapy High cholesterol Former smoker Right rotator cuff tear Left shoulder pain Right shoulder pain Anxiety Surgical History Hx of colonoscopy partial intestine removal History of intestinal surgery Hx of breast implants, bilateral Family History Mother Hypertension Father COPD (chronic obstructive pulmonary disease) Social History Smoking Status: Former smoker how long ago did patient quit smokin alcohol intake: never what type of physical activity do you participate in: walking and running HPI right shoulder Details: This documentation accurately reflects the service provided and the decisions made by me, Dr. Bobby Arce MD 03/15/25 1246. Part of today???s visit was documented by [ ], acting as scribe. AZALEA EDWARDS is a 64 year old F here today for 2 weeks FU Right shoulder arthroscopy, subacromial decompression, rotator cuff repair, decompression infraspinatus cyst and biceps tenodesis. Does complain about anterolateral forearm numbness and tingling since the operation. Other than that no concerns. Coding Level of Care Code Global Post Op Diagnoses Bursitis of right shoulder M75.51 Assessment and Plan Assessment and Plan (1) Bursitis of right shoulder: Status: Acute Plan: AZALEA EDWARDS is a 64 year old F here today for 2 weeks FU Right shoulder arthroscopy, subacromial decompression, rotator cuff repair, decompression infraspinatus cyst and biceps tenodesis, complicated by lateral antebrachial cutaneous nerve neuropraxia. This should likely resolve on its own - was likely from the biceps tenodesis. Biceps strength is full. All motor nerves functioning well and strong, including axillary. Recommend rest ice anti-inflammatories gentle range of motion discontinue the sling start physical therapy for active assisted range of motion no lifting over 1 pound and follow-up in the office in 4 weeks time. The patient understands no further questions or concerns. Phase 1: Initial Protection and Pain Management (Weeks 1-2) Dressing: Keep incisions clean and dry. Change dressing every 1-2 days. Sling: Wearing a sling for comfort and to protect the surgical repair Pain Management: Ice, rest, and pain medication are used to control pain and swelling. Gentle Movement: Early passive range of motion exercises are introduced to prevent stiffness. Perform pendulum exercises 4x/day, where the patient gently swings the arm in a controlled manner. Maintaining range of motion and strength in the elbow, wrist, and hand is important to prevent stiffness and muscle atrophy. Phase 2: Gradual Muslim of Motion (Weeks 2-6) Gradually discontinue the sling starting 2 weeks after surgery. Active Assisted Range of (more content not included)... Normal [facility] Orthopedic Visit Reporton Orthopedic Visit Report [facility] [address] [place] [address] OFFICE VISIT Date of Service: 03/04/25 MR#: [id number] Acct: [id number] Name: AZALEA EDWARDS ANN Rep #: [id number] : 1960 Provider: Dr. Bobby duron MD Age/Sex: 64/F Location: [facility] [place] Status: Signed Intake Vital Signs 02/10/25 20:32 03/02/25 09:38 Height 5 ft 5 ft Intake Visit Reasons: right shoulder Chief Complaint: Right Shoulder 2 Day Post-Op Accompanied by: Is patient in pain?: Yes Allergies No Known Allergies Allergy (Verified 03/04/25 13:34) Medications ???Medication ???Instructions ???Recorded ???Confirmed ???Type conjugated estrogens 0.625 mg/gram 0.625 applicatio topical QWEEK 0 11/30/18 03/04/25 History vaginal cream (Premarin) calcium carbonate 500 mg PO QDAY 01/27/25 03/04/25 H istory cranberry 500 mg capsule 500 mg PO QDAY 01/27/25 03/04/25 H istory duloxetine 60 mg capsule,delayed 60 mg PO DAILY Anxiety 01/27/25 History release sprinkle multivitamin 1 tab PO QDAY 01/27/25 03/04/25 Hi story kj-wmq-osquk 120 mcg-biotin 1,250 1 cap PO DAILY 01/27/25 03/04/25 History mcg-K1 60 lyd-oydmogjk-sprj capsule (Hair, Skin And Nails (Herbs)) turmeric 400 mg capsule 500 mg PO DAILY 01/27/25 03/04/25 History oxycodone-acetaminoph en 5 mg-325 1 tab PO Q4H PRN pain 5 days #30 0 03/02/25 03/04/25 Rx mg tablet (Percocet) tabs ibuprofen 200 mg capsule 200 mg PO Q6H PRN 03/04/25 5 History Have you fallen in the past year?: No PFSH Medical History Bursitis of right shoulder Impingement of right shoulder Superior labrum otwvolmq-ev-bdisyllhe (SLAP) tear of right shoulder Wears glasses Wears contact lenses Post-menopausal History of steroid therapy High cholesterol Former smoker Right rotator cuff tear Left shoulder pain Right shoulder pain Anxiety Surgical History Hx of colonoscopy partial intestine removal History of intestinal surgery Hx of breast implants, bilateral Family History Mother Hypertension Father COPD (chronic obstructive pulmonary disease) Social History Smoking Status: Former smoker how long ago did patient quit smokin alcohol intake: never what type of physical activity do you participate in: walking and running HPI right shoulder Details: This documentation accurately reflects the service provided and the decisions made by me, Dr. Bobby Arce MD 03/04/25 1034. Part of today???s visit was documented by [ ], acting as scribe. AZALEA EDWARDS is a 64 year old F here today for POD 2 Right shoulder arthroscopy, subacromial decompression, rotator cuff repair, decompression infraspinatus cyst and biceps tenodesis. doing quite well. pain well controlled. was out in the garden already. Coding Level of Care Code Global Post Op Diagnoses Bursitis of right shoulder M75.51 Impingement of right shoulder M25.811 Superior labrum rdccmdda-pi-qfveejfyw (SLAP) tear of right shoulder S43.431A Right rotator cuff tear M75.101 Right shoulder pain M25.511 Assessment and Plan Assessment and Plan (1) Bursitis of right shoulder: Status: Acute Plan: AZALEA EDWARDS is a 64 year old F here today for POD 2 Right shoulder arthroscopy, subacromial decompression, rotator cuff repair, decompression infraspinatus cyst and biceps tenodesis. Well. New steris and mepilex dressings. FU 2 weeks. OK for pendulums. Start PT in 2 weeks. Phase 1: Initial Protection and Pain Management (Weeks 1-2) Dressing: Keep incisions clean and dry. Change dressing every 1-2 days. Sling: Wearing a sling for comfort and to protect the surgical repair Pain Management: Ice, rest, and pain medication are used to control pain and swelling. Gentle Movement: Early passive range of motion exercises are introduced to prevent stiffness. Perform pendulum exercises 4x/day, where the patient gently swings the arm in a controlled manner. Maintaining range of motion and strength in the elbow, wrist, and hand is important to prevent stiffness and muscle atrophy. Phase 2: Gradual Muslim of Motion (Weeks 2-6) Gradually discontinue the sling starting 2 weeks after surgery. Active Assisted Range of Motion: Gradually increasing the range of motion with assistance from the unaffected arm or a physical therapist is introduced. Phase 3: Gradual Muslim of Strength (Weeks 6-12) Light Strengthening: Isometrics and gentle resistance exercises are started to strengthen the rotator cuff muscles. Progression of Exercises: Exercises progress from simple movements like s (more content not included)... Normal [facility] 12 Lead EKGon 03-02-2025 12 Lead EKG [facility] Cardiovascular Services [address] [place] [address] 12 Lead EKG 03/02/25 0921 MR#: [id number] Acct: [id number] Name: AZALEA EDWARDS Rep #: [id number] : 1960 64 From: Dwight Reina MD Attending Dr: Dr. Bobby Arce MD Status: DE P [facility] Ordering Dr: Spike Del Real MD Date: 03/02/25 Location: [facility] Sex: F C Admitted: Test Reason : PRE OP Blood Pressure : */* mmHG Vent. Rate : 77 BPM Atrial Rate : 77 BPM P-R Int : 140 ms QRS Dur : 74 ms QT Int : 376 ms P-R-T Axes : 73 44 67 degrees QTcB Int : 425 ms Normal sinus rhythm Possible Left atrial enlargement Borderline ECG When compared with ECG of 06-Aug-2015 17:43, No significant change was found Confirmed by JOANNE STEWART, JENN ([id number]), website/blog editor CONSUELO SANCHEZYA ([id number]) on 03/07/2025 8:58:01 AM Referred By: Bobby Arce Confirmed By: JENN REINA MD 03/07/25 0858 Date Dwight Reina MD CC: THOR[facility]IC MEDICINE SPECIALIST-C ANDREY SMITH; Dr. Spike Del Real MD; Dr. Bobby Arce MD Signed Normal [facility] Discharge Instructionon Discharge Instruction [facility] Medical Records Department [address] [place] [address] Instructions for Home/Discharge Instructions 03/02/25 1349 MR#: [id number] Acct: [id number] Name: AZALEA EDWARDS ANN Rep #: [id number] : 1960 64 From: Bobby Arce MD PCP: BRADY ORTEGA Status:REG [facility] Discharge Instructions Diet Discharge Diet: No restrictions Activity Lifting Restrictions: no lifting over one pound, ok for pendulums, hand wrist elbow rom gently Additional Activity Instructions:: ok to remove sling at rest, sling for sleep and walking Dressing / Incision Call your doctor if your incision/area has: Continuous Slow Oozing, Sudden Increased Bleeding, Increased Pain/ Swelling, Increased Redness, Foul Smelling Discharge and Swelling at the incision site Call your doctor if you observe: Fever of 101 or Higher, Coldness, Increased Pain and Numbness or Tingling Change Dressing in: leave in place till F/U Cleanse incision/area with: Do not get Incision Wet Additional Dressing/Incision Instructions:: if dressing gets wet, remove, leave steri strips on, and re-dress incisions Follow Up Care Please Follow Up With: Bobby Arce MD When: 2 days (or within 2 weeks) Test Results: Test results from this visit will be discussed in further detail at your follow-up appointment, if applicable. Discharge Plan Admission Attending Provider: Bobby Arce Primary Care Provider: ANDREY SMITH Instructions Patient Instructions: Pendulum (Flexibility) Print Language: Pashto Discharge Orders/Prescriptions Prescriptions: New oxycodone-acetaminoph en [Percocet] 5-325 mg tablet 1 tab PO Q4H MDD 6 PRN (Reason: pain) 5 Days Qty: 30 0RF No Action calcium carbonate 500 mg calcium (1,250 mg) tablet 500 mg PO QDAY duloxetine 60 mg capsule, delayed rel sprinkle 60 mg PO DAILY multivitamin Tablet 1 tab PO QDAY turmeric 400 mg capsule 500 mg PO DAILY Hair, Skin And Nails (Herbs) 120-1,250-60 mcg capsule 1 cap PO DAILY cranberry 500 mg capsule 500 mg PO QDAY Rx Instructions: administer with meals Premarin 0.625 cream 0.625 applicatio topical QWEEK Referrals / Follow Up: Bobby Arce MD [Med Staff - Active Staff] - ANDREY SMITH NP-C [Primary Care Provider] - Disposition Disposition (needs filled in before D/C Order can be placed): Home, Self Care 03/02/25 1352 Bobby Arce MD CC: BRADY SMITH Signed [facility] MR/POSTOP.[facility] 03-02-2025 MR/POSTOP.[facility] Medical Records Department [address] [place] [address] Anesthesia Postop Eval I 03/02/25 1439 MR#: [id number] Acct: [id number] Name: AZALEA EDWARDS Rep #: [id number] : 1960 64 From: Edwin Jones CRNA PCP: BRADY ORTEGA Status:REG SDC Y Race: C Location: [place] [address] Anesthesia: Postop Eval I Current Vital Signs Temperature: 97.8 F Pulse Rate: 74 Blood Pressure: 162/90 Respiratory Rate: 16 Pulse Ox: 93 Oxygen Delivery Method: Room Air Assessment Airway patent: Yes Spontaneous unlabored respirations: Yes Mental status: Awake and Calm nausea: No Vomiting: No Anesthesia Complication: No Fluid Hydration Crystalloid volume administer (ml): 1,500 Total IV fluid infused: 1,500 Progress Note Anesthesia document: Postop Eval 1 completed: Yes 03/02/25 1440 Date Edwin Jones LAW INSTRUCTOR Cosigner Signature: Date CC: Signed Normal [facility] [id number] 03-02-2025 [facility] Medical Records Department [address] [place] [address] Anesthesia Postop Eval II 03/02/25 1517 MR#: [id number] Acct: [id number] Name: AZALEA EDWARDS ANN Rep #: [id number] : 1960 64 From: Spike Del Real MD PCP: BRADY ORTEGA Status:REG SDC Y Race: C Location: [place] [address] Anesthesia Postop Eval I Sum Postop Eval Completion status Anesthesia document: Postop Eval 1 completed: Yes Anesthesia Postop Eval I Summary Anesthesia Postop Eval I Summary: Anesthesia Postop Eval I: Assessment Summary Airway patent Yes 03/02/25 14:40 [email or web address] Spontaneous unlabored Yes 03/02/25 14:40 [email or web address] [email or web address] respirations Mental status Awake,Calm 03/02/25 14:40 [email or web address] [email or web address] nausea No 03/02/25 14:40 [email or web address] [email or web address] Vomiting No 03/02/25 14:40 LAW [email or web address].[email or web address] Anesthesia Postop Eval I: Fluid Summary Crystalloid volume administer 1,500 03/02/25 14:40 LAW INSTRUCTOR.JBLOU (ml) Colloids volume administered ( ml) Blood Product volume administered (ml) Total IV fluid infused 1,500 03/02/25 14:40 LAW INSTRUCTOR.JBLOU Anesthesia Postop Eval I: Summary Notes Anesthesia Complication No 03/02/25 14:40 LAW INSTRUCTOR.JBLOU Anesthesia Complication Comment: Post-operative progress note Anesthesia: Postop Eval II Evaluation Mental status: Awake Pain Level: 0 nausea: No Vomiting: No Complications Anesthesia Complication: No 03/02/25 1517 Date Spike Del Real MD Cosigner Signature: Date CC: Signed Normal [facility] Operative Reporton 5 Operative Report [facility] Medical Records Department [address] [place] [address] Operative Report 03/02/25 1357 MR#: [id number] Acct: [id number] Name: AZALEA EDWARDS Rep #: [id number] : 1960 64 From: Bobby Arce MD PCP: BRADY ORTEGA Status:REG [facility] Location: [place] [address] Problems Associated Problem List Diagnoses (1) Right rotator cuff tear: (2) Superior labrum mstgxupu-la-huidlprng (SLAP) tear of right shoulder: (3) Impingement of right shoulder: (4) Bursitis of right shoulder: Procedures Musculoskeletal 20xxx-29xxx: Other Procedure See Report Operative Report (Standard) Operative Information Date of Procedure: 03/02/25 Pre-Operative Diagnosis: Right shoulder rotator cuff tear and impingement syndrome and infraspinatus cyst Post-Operative Diagnosis: Right shoulder rotator cuff tear impingement syndrome and SLAP tear Surgery/Procedure Performed: Right shoulder arthroscopy, subacromial decompression, rotator cuff repair, decompression infraspinatus cyst and biceps tenodesis internal review and audit compliance: Yes Editor Sound: johnny Tasks completed by first helper: Retracting Type of Anesthesia: Block,Regional and General RN Documented Start/Stop Times: Operation Date: 03/02/25 11:00 Case Time Into Pre-Op 03/02/25 09:10 Anesthesia Start 03/02/25 11:46 Into Room 03/02/25 11:46 Procedure Start 03/02/25 12:15 Procedure End 03/02/25 13:53 Procedure Start Time: 12:15 Procedure Stop Time: 13:53 Select all DRAINS/GRAFTS/IMPLANT S that apply: Implanted device Implanted device details: arthrex biceps tension tight button, double row arthrex repair for cuff Estimated Blood Loss: 50 Specimen collected: No Description of surgery: Patient brought to the operating room theater. Placed supine on the table. General anesthesia induced. 2 g of IV Ancef administered prior to the start of the case. Patient transferred right side up lateral decubitus beanbag positioner. Axillary roll placed. SCDs on the legs. All bony prominences padded. Upper extremity prepped and draped in the usual sterile fashion with chlorhexidine-based prep solution allowing over 3 minutes drying time prior to draping. 10 pounds of inline traction with the arm in 40 degrees of abduction was used. Preoperative timeout performed to confirm the site patient and the surgery. Began by inserting the arthroscope into the intra-articular portion of the shoulder. Use spinal needle inside out localization to perform an anterior portal through the rotator interval. Did a full diagnostic arthroscopy. Cartilage on the humeral head and the glenoid was normal. LHB origin had tearing up to 70% of the origin, unstable. Tried to debride this, but very unstable and few fibers remaining, so did a tenotomy with ablator to plan for later tenodesis. Labrum normal, contoured this with shaving instrument. The subscapularis was normal, aside from some mild longitudinal fraying. IS and TM normal undersurface. Full thickness full width tear of SS tendon. Delaminated anteriorly, split from lateral to medial. Retracted to mid humeral head. I then placed the arthroscope into the subacromial space and used 2 accessory lateral portals. Did a complete bursectomy for moderate amount of mostly inflammatory bursitis. Multiple trephinations in the area of the IS cyst. Downsloping of AL acromion. Used high speed nette to flatten this by 4mm. Cuff moderately mobile, but lost some tissue at the GT footprint. Cleaned up the margins at the frayed aspect of the cuff. Did a side to side closure, ensuring to capture the laminar layers. Used SMC sliding know, half hitches, cut short. Then 2 arthrex fiber RC soft all suture anchors at the articular margin. These had knotless mechanisms as well as the double loaded fiber tape sutures. I passed the fiber tape sutures medially using good purchase and a scorpion device as well as the knotless mechanism just anterior and posterior to the proposed crisscrossing suture repair stitches. Cut at the splice. Then crisscrossed the sutures and attached to suture limbs total 1 from each anchor to the another Arthrex bio composite 4.75 mm suture anchor for a crisscrossing repair this brought the tendon to the greater tuberosity with 70% coverage. 4 total anchors. I also prepared the tuberosity prior using ablator removing any remaining soft tissue and use the power pick instrument for multiple bony trephination's. I then converted the knotless mechanism medially to create 2 crisscrossing horizontal mattress sutures and then cut the suture short and removed all the stay sutures. I then returned my attention to performing the biceps tenodesis. I made a small 1.5 inch incision centered over the proximal anterior medial aspect of the humerus overlying the long head of the biceps tendon. I carried the dissection down through skin and subcutaneous (more content not included)... Normal [facility] PT D/C Summary (1)on 025 PT D/C Summary (1) [facility] Physical Therapy [facility] [address] [place] [address] [address] [place] [address] / REHABILITATION SERVICES DISCHARGE SUMMARY MR#: [id number] Acct: [id number] Name: AZALEA EDWARDS Rep #: [id number] : 1960 64 From: Jacob Negrete DPT, OCS, CSCS Referring Dr.: Dr. Bobby Arce MD Status: R EG RCR Insurance: MEDICARE PART A B [facility] Discharge Summary D/C summary: It has been my pleasure to treat AZALEA EDWARDS referred by Dr. Bobby Arce MD, with the diagnosis of B shoulder pain, for a total of 7 visit(s). Discharge Date: 02/22/25 Please see the following information for a summary of their discharge status. Subjective Subjective: R shoulder RCR in one week. Therapy helps, she has full ROM. played a little pickleball and it hurt though. L one feels good now without pickleball. Still up at night with aggressive activity. No pain lately but is not doing a lot other than workout. Maybe 1/10 last night. Pain shoulder: Pain Intensity (Out of 10): 0 Overall Improvement % Improvement: 60 Objective Objective/Function: Full aROM B shoulders without pain today. Strength is 4/5 in rotations and flexion and ext and abd and bi and tri B , empty can R slightly weak and sore but transient. Goals Goal 1:: Sleep without waking due to shoulder pain Goal Progress: Progressing Goal 2:: shoulder pain 0/10 at rest and 1/10 at worst and 90% better Goal Progress: Progressing Goal 3:: I appropriate HEP to limit future problems Goal Progress: Goal Met Goal 4:: Play pickle ball without increased pain Goal Progress: Not Progressing Goal 5:: quickdash score 15 or better Goal Progress: Not Progressing Plan Plan: d/c to HEP, pt ready for surgry nexxt week. D/C Information Discharge Comments: Pt to have r shoulder surgery next week and resume L shoulder strength after that when able d/c sentence: If there are questions or concerns regarding this patient's physical therapy, please feel free to call me at [phone]. Thank you for the referral of this patient. Sincerely, Jacob Negrete, DPT, OCS, CSCS Balance/Gait/Function al tests Balance/Special Test Scores Quick DASH Score: 43.1800 Improvement % Improvement: 60 02/22/25 1020 CC: THORACIC MEDICINE SPECIALISTCl SMITH; Dr. Bobby Arce MD EBG Signed Normal [facility] MR/BMS.BPon 02-10-2025 MR/BMS.BP [facility] [address] [place] [address], [address] [place] [address] OFFICE VISIT Date of Service: 02/10/25 MR#: [id number] Acct: [id number] Name: AZALEA EDWARDS ANN Rep #: [id number] : 1960 Provider: [facility] Mili earl Age/Sex: 64/F Location: [facility].BP Status: Signed Intake Vital Signs 01/27/25 08:57 02/10/25 20:32 Height 5 ft 5 ft BP Intake Visit Reasons: follow up Allergies No Known Allergies Allergy (Verified 02/10/25 14:20) Have you fallen in the past year?: No PFSH Medical History Right rotator cuff tear Left shoulder pain Right shoulder pain Anxiety Surgical History partial intestine removal History of intestinal surgery Hx of breast implants, bilateral Family History Mother Hypertension Father COPD (chronic obstructive pulmonary disease) Social History Smoking Status: Former smoker how long ago did patient quit smokin alcohol intake: never what type of physical activity do you participate in: walking and running HPI History of Present Illness HPI: Azalea Edwards is a 64 year-old female returning for therapy. She identified upcoming rotator cuff surgery. Azalea reported significant distress and stressors related to recent interactions with her stepdaughter. Themes of the session included relational difficulties; recent relational conflicts; and coping with relational frustrations. Encouraged verbalization of emotions while providing support. Explored family of origin experiences that exacerbate feelings of rejection and sadness about level of connection. Worked on thinking distortions such as disqualifying the positive and on reframing using CBT interventions. Provided psychoeducation on developmental tasks in early adulthood. Worked on values clarification and value-based action. Azalea expressed a lessening of emotional distress and showed responsiveness to interventions. No SI. Future-oriented. Exam Mental Status Exam - Psych Appearance casually dressed and adequately groomed Attitude calm and engaged Activity/Motor Behavior MSE activity/motor behavior finding no adventitious movements and appropriate eye contact Speech regular rate, regular volume and regular prosody Mood sad, anxious and angry Affect full range and tearful Thought Process linear, coherent and goal directed Thought Content no delusions, no hallucinations and ruminations (Related to relationship with stepdaughter.) Suicidal Ideation none Homicidal Ideation none Attention intact Concentration intact Sensorium/Orientation awake, alert and oriented x3 Memory/Cognition other (Difficulty recalling parts of childhood.) Insight good Judgement good Assessment Plan Assessment Plan (1) Anxiety disorder, unspecified: Plan: therapy using CBT, DBT, and ACT interventions to address thought patterns contributing to anxious symptoms and to teach coping skills. Psychiatric services to monitor anxious symptoms and medication effectiveness. Plan TREATMENT PLAN Goal 1 - Will eliminate or reduce level of anxiety and other negative emotions related to traumatic life events and trauma reminders AEB by pt.'s report of symptom reduction. Objective 1 - Participate in cognitive therapy to help identify, challenge, and replace biased, negative, and self-defeating thoughts resulting from traumatic upbringing, interactions with family of origin or reminders to traumatic upbringing. Intervention 1 - Using cognitive therapy techniques, explore self-talk and beliefs about self, others and world; teach thinking distortions; and explore alternative thinking. Objective 2 - Verbalize insight into how past relationship experiences may be influencing current experiences of anxiety and other negative emotions. Intervention 1 - Help pt. increase insight into the role that past relational patterns that may be influencing current vulnerabilities to anxiety and other negative emotions; identify core conflictual themes; and process with pt. toward making changes in current relational patterns. Visit Details Duration of visit (minutes): 60 Duration of counseling (minutes): 60 Total time (minutes): 60 Type of visit: psychotherapy and dkyg-ri-lydl Clinical Quality Measures Falls Risk Screening/Assistive Devices Have you fallen in the past year?: No C[place] [address] PSYTX W PT 60 MINUTES Patient Type Established Diagnoses Anxiety disorder, unspecified F41.9 Time Spent (min) 60 02/10/252037 Date Mili Mancuso [facility] (more content not included)... Normal [facility] Orthopedic Visit Reporton Orthopedic Visit Report [facility] [address] [place] [address] OFFICE VISIT Date of Service: 02/10/25 MR#: [id number] Acct: [id number] Name: AZALEA EDWARDS ANN Rep #: [id number] : 1960 Provider: Dr. Bobby duron MD Age/Sex: 64/F Location: [facility].DENIS Status: Signed Intake Vital Signs 01/27/25 08:57 02/10/25 14:19 Height 5 ft 5 ft Weight: 137 lb BMI 26.7 Intake Visit Reasons: RIGHT SHOULDER Chief Complaint: Right shoulder surgery Accompanied by: Is patient in pain?: Yes Pain scale (1-10): 2 Allergies No Known Allergies Allergy (Verified 02/10/25 14:20) Medications ???Medication ???Instructions ???Recorded ???Confirmed ???Type conjugated estrogens 0.625 mg/gram 0.625 applicatio topical QWEEK 0 11/30/18 02/10/25 History vaginal cream (Premarin) calcium carbonate 500 mg PO QDAY 01/27/25 02/10/25 H istory cranberry 500 mg capsule 500 mg PO QDAY 01/27/25 02/10/25 H istory duloxetine 60 mg capsule,delayed 60 mg PO DAILY Anxiety 01/27/25 History release sprinkle multivitamin 1 tab PO QDAY 01/27/25 02/10/25 Hi story gy-xdx-kpcwq 120 mcg-biotin 1,250 cap PO 01/27/25 02/10/25 History mcg-K1 60 gxa-lvvorkod-bzxn capsule (Hair, Skin And Nails (Herbs)) turmeric 400 mg capsule 500 mg PO DAILY 01/27/25 02/10/25 History Have you fallen in the past year?: No PFSH Medical History Right rotator cuff tear Left shoulder pain Right shoulder pain Anxiety Surgical History partial intestine removal History of intestinal surgery Hx of breast implants, bilateral Family History Mother Hypertension Father COPD (chronic obstructive pulmonary disease) Social History Smoking Status: Former smoker how long ago did patient quit smokin alcohol intake: never what type of physical activity do you participate in: walking and running HPI RIGHT SHOULDER Details: This documentation accurately reflects the service provided and the decisions made by me, Dr. Bobby Arce MD 02/10/25 7592. Part of today???s visit was documented by [ ], acting as scribe. AZALEA EDWARDS is a 64 year old F here today for FU R shoulder pain, cuff tear. pain better with stopping pickle ball. Supplemental Info [facility] Imaging Services [address] [place] [address] Upper Ext Joint Only(Routine) MR#: [id number] Acct: [id number] Name: AZALEA EDWARDS ANN Rep #: [id number] : 1960 F 64 From: Gayle Bennett MD PCP: BRADY ORTEGA Status: REG CLI Study: Upper Ext Joint Only(Routine) Date of Exam: 01/28/25 Exam# [id number] Ordering Dr: Bobby Arce MD PROCEDURE: UPPER EXT JOINT ONLY(ROUTINE) 01/28/2025 REASON FOR EXAM: PAIN TECHNIQUE: UPPER EXT JOINT ONLY(ROUTINE) Multiplanar and multisequence images were obtained without IV contrast administration. MRI RIGHT SHOULDER. COMPARISON: RADIOGRAPHS ON 01/27/2025. FINDINGS: Type III acromion. Degenerative joint disease of the acromioclavicular joint. Findings are demonstrated by joint space narrowing, osteophyte formation and degenerative periarticular bone marrow changes. Narrowing of the supraspinatus outlet and impingement on its myotendinous junction. High-grade almost complete tear of the insertional fibers of the supraspinatus tendon. 1.4 cm proximal retraction of the ruptured tendon fibers. Tendinosis with mild partial thickness tear of the insertional fibers of the infraspinatus tendon. Associated 1.42 cm intramuscular synovial/ganglion cyst adjacent to the myotendinous junction. Tendinosis with mild partial thickness tear of the insertional fibers of the subscapularis tendon. Unremarkable teres minor muscle and tendon. No evidence of muscular atrophy. Degenerative fibrocystic changes at the humeral insertion of the rotator cuff tendons. Fluid signal and edema in the subdeltoid/subacromia l bursa suggestive of bursitis and/or impingement. The remaining visualized osseous elements are intact with no evidence of fracture or dislocation. The remaining marrow signal is within normal limits. The visualized hyaline cartilage is degenerated. Mild degenerative joint disease of the glenohumeral joint. The glenoid labrum is degenerated. There is mild glenohumeral joint effusion. Mild changes of bicipital tendinosis. Mild subcoracoid effusion. Edema and increa (more content not included)... Normal [facility] 02-08-2025 SRIDHAR Telephone (OBGYWM) SOFYA EDWARDSIE Venu ([id number]) 1960 F Date Time Provider Department 02/08/25 ANA BYRNES OBGYWTayla During your visit today, we recorded the following information about you: Akil Rice RN 02/08/2025 2:28 PM Signed Pt states she was prescribed Premarin in the past AND had different insurance that covered the cost; However, now is on Medicare and unable to use a coupon; Therefore, asking if there an alternative to Premarin? If not an alternative, can Pt order from [facility]? Pt just does not want to pay $400 for one tube. Please advise. ALLIE Mckeon Renee, APRN.CNP 02/08/2025 2:32 PM Signed She can still have the pharmacy run it through [facility], it should only be around $50. The other option is to have it compounded at [facility] retail pharmacy and it would be about $40 per tube. Ana Byrnes APRN.Christina Pardo RN 02/08/2025 3:03 PM Signed Patient states she ran it through [facility] and it was still more than $400. Patient would like the medication compounded through [facility] pharmacy. Compounding form to RM to fill out. ALLIE Delgado Annalee, LPN 02/10/2025 11:31 AM Signed Compounded Rx form to provider. Patient would like a [employer] message when order is faxed to [facility]. Ana Byrnes APRN.CNP 02/10/2025 12:03 PM Signed I believe Ana sent this earlier today. Ana Byrnes APRN.STORAGE RECEIPT POSTER Christina Alex RN 02/10/2025 12:09 PM Signed Form faxed to [facility] pharmacy. Christina Alex RN Allergies As of Date: 02/08/2025 (No Known Allergies) Date Reviewed: 05/20/2024 Reviewed by: Ana Byrnes APRN.STORAGE RECEIPT POSTER - Fully Assessed Reason for Visit: Patient Question [1477] Prescriptions as of 02/10/2025 - conjugated estrogens (PREMARIN) vaginal cream Apply 1 gram to vagina 2-3 times weekly. - DULoxetine (CYMBALTA) 60 mg capsule Take 60 mg by mouth. - clobetasol (TEMOVATE) 0.05 % ointment Apply 1 application to affected area twice daily. For 4 weeks then use once weekly for maintenance - calcium carbonate (CALCIUM 500 ORAL) Take by mouth. - TURMERIC ORAL Take by mouth. - MULTI-VITAMIN ORAL Take by mouth. - cranberry fruit extract (CRANBERRY CONCENTRATE ORAL) Take 850 mg by mouth. - biotin 5 mg tab Take 5 mg by mouth once daily. Problem List As Of Date 02/08/2025 Noted Resolved Small bowel obstruction (HCC) [K56.609] 09/08/2015 Depressive disorder [F32.A] 05/20/2024 Encounter Status:Closed by CHRISTINA ALEX on 02/10/25 [facility] Orthopedic Visit Reporton Orthopedic Visit Report [facility] [address] [place] [address] OFFICE VISIT Date of Service: 02/07/25 MR#: [id number] Acct: [id number] Name: AZALEA EDWARDS ANN Rep #: [id number] : 1960 Provider: Dr. Bobby duron MD Age/Sex: 64/F Location: [facility]OS[facility] Status: Signed Intake Vital Signs 01/27/25 08:57 Height 5 ft Intake Visit Reasons: RIGHT SHOULDER Chief Complaint: MRI review Allergies No Known Allergies Allergy (Verified 01/31/25 08:09) Have you fallen in the past year?: No [facility] Medical History (Updated 02/07/25 @ 14:27 by Bobby Arce MD) Right rotator cuff tear Left shoulder pain Right shoulder pain Anxiety Surgical History partial intestine removal History of intestinal surgery Hx of breast implants, bilateral Family History Mother Hypertension Father COPD (chronic obstructive pulmonary disease) Social History Smoking Status: Former smoker how long ago did patient quit smokin alcohol intake: never what type of physical activity do you participate in: walking and running HPI RIGHT SHOULDER Details: This documentation accurately reflects the service provided and the decisions made by me, Dr. Bobby Arce MD 02/07/25 1116. Part of today???s visit was documented by [ ], acting as scribe. AZALEA EDWARDS is a 64 year old F here today for FU R shoulder MRI. phone call Supplemental Info [facility] Imaging Services [address] [place] [phone] Upper Ext Joint Only(Routine) MR#: [id number] Acct: [id number] Name: AZALEA EDWARDS ANN Rep #: [id number] : 1960 F 64 From: Gayle Bennett MD PCP: BARDY ORTEGA Status: REG CLI Study: Upper Ext Joint Only(Routine) Date of Exam: 01/28/25 Exam# [id number] Ordering Dr: Bobby Arce MD PROCEDURE: UPPER EXT JOINT ONLY(ROUTINE) 01/28/2025 REASON FOR EXAM: PAIN TECHNIQUE: UPPER EXT JOINT ONLY(ROUTINE) Multiplanar and multisequence images were obtained without IV contrast administration. MRI RIGHT SHOULDER. COMPARISON: RADIOGRAPHS ON 01/27/2025. FINDINGS: Type III acromion. Degenerative joint disease of the acromioclavicular joint. Findings are demonstrated by joint space narrowing, osteophyte formation and degenerative periarticular bone marrow changes. Narrowing of the supraspinatus outlet and impingement on its myotendinous junction. High-grade almost complete tear of the insertional fibers of the supraspinatus tendon. 1.4 cm proximal retraction of the ruptured tendon fibers. Tendinosis with mild partial thickness tear of the insertional fibers of the infraspinatus tendon. Associated 1.42 cm intramuscular synovial/ganglion cyst adjacent to the myotendinous junction. Tendinosis with mild partial thickness tear of the insertional fibers of the subscapularis tendon. Unremarkable teres minor muscle and tendon. No evidence of muscular atrophy. Degenerative fibrocystic changes at the humeral insertion of the rotator cuff tendons. Fluid signal and edema in the subdeltoid/subacromia l bursa suggestive of bursitis and/or impingement. The remaining visualized osseous elements are intact with no evidence of fracture or dislocation. The remaining marrow signal is within normal limits. The visualized hyaline cartilage is degenerated. Mild degenerative joint disease of the glenohumeral joint. The glenoid labrum is degenerated. There is mild glenohumeral joint effusion. Mild changes of bicipital tendinosis. Mild subcoracoid effusion. Edema and increased signal of the rotator cuff interval, probably adhesive capsulitis. MRI/Upper Ext Joint Only(Routine) IMPRESSION: High-grade almost complete tear of the insertional fibers of the supraspinatus tendon. 1.4 cm proximal retraction of the ruptured tendon fibers. Tendinosis with mild partial thickness tear of the insertional fibers of the infraspinatus tendon. Associated 1.32 cm intramuscular synovial/ganglion cyst adjacent to the myotendinous junction. Tendinosis with mild partial thickness tear of the insertional fibers of the subscapularis tendon. Degenerated articular cartilage. Degenerated labrum. Mild bicipital tendinosis. Adhesive capsulitis. Reading Location: [facility] Coding Level of Care Code Attention Fabby Diagnoses Right shoulder pain M25.511 Right rotator cuff tear M75.101 Comment 15 min phone call (more content not included)... Normal [facility] Inital Evaluation (1) - PTon 01-31-2025 Inital Evaluation (1) - PT [facility] Physical Therapy [facility] [address] [place] [address]. [address] [place] [address] / REHABILITATION SERVICES INITIAL EVALUATION MR#: [id number] Acct: [id number] Name: AZALEA EDWARDS Rep #: [id number] : 1960 64 From: Jacob Negrete DPT, OCS, CSCS Referring Dr.: Dr. Bobby Arce MD Status: R EG RCR Insurance: MEDICARE PART A B [facility] Patient's Visit Information Visit Information Visit Information: AZALEA EDWARDS is a 64 year old F referred to Physical Therapy by Dr. Bobby Arce MD with a diagnosis of B shoulder pain,. Date of Evaluation: 01/31/25 Physical Therapist: Jacob Negrete DPT, OCS, CSCS Visit Plan Frequency: 3x /Week Duration: 4-6 Weeks Plan: 3x/week for 2-4 weeks for IE HEP: Posture very important for healing Sleep left side with pillow under right arm or back if possible Avoid aggravating activities, anything that increases your pain. Use hands with upper arm at your side if possible. Avoid lifting overhead with any resistance or out front. Keep shoulder blades moving(circles 20x throughout day) treat with US R shoulder nonthermal until painfree at rest, RC and scap strength and progress to I gym program/HEP as tolerated. ice as needed. Pec stretches. TENS if needed. Subjective Subjective: Last two years or so both shoulder pain , intermittent but worse at night and effecting her sleep. Insidious onset. Plays pickleball and works out regulalrly. . Both shoulders have hurt since. Had MRI Friday and will see Dr. Arce at 8:15 today. Pain is anterior and down lateral uppeer arm. Got injection R last week and it may have helped. Sometimes hard time lifting but maybe a little easier. Dull toothache at rest on R, less so on L. Has not played pickle ball since injured it end December serve incidiee Basic ADLs are still done but slower and painful R shoulder. Works out at [employer], Mil press, db curl, lateral raises, bench press. Regularly until last week. Did machines this weekend with poultry cutter weight and tolerated it better. Retired. Pain shoulder: Pain Intensity (Out of 10): 2 Pain Intensity Range: 2 and 8 Comment: mostly R Objective Objective: Posture is forward head and slightly protracted scapula. Tender to palpation R supraspinatus moderately. cervical aROM WFL and without pain, scapula move well, slightly limited retraction B. Full UE AROM B but end range R ext rotations, IR and flexion is noticeable pain transiently. 2/20 baseling ache at rest. Full elbow and wrist AROM without pain. reflexes 2/3 bi and tri B. sensation UE WNL to gross light touch. + HK R, + neer R, - B extrotation lag test, - drop arm B. - labral B. strength is 4 in shoulder rotations except R er which is 4-. elevation is 4- B with pain R flexion and empty can. elbow and wrsit strength 4+/5 B. Balance/Special Test Scores Quick DASH Score: 43.1800 Goals Goal 1:: Sleep without waking due to shoulder pain Goal Time Frame: 4-6 Weeks Goal 2:: shoulder pain 0/10 at rest and 1/10 at worst and 90% better Goal Time Frame: 4-6 Weeks Goal 3:: I appropriate HEP to limit future problems Goal Time Frame: 4-6 Weeks Goal 4:: Play pickle ball without increased pain Goal Time Frame: 4-6 Weeks Goal 5:: quickdash score 15 or better Goal Time Frame: 4-6 Weeks Rehabilitation Potential Physical Therapy Diagnosis: Shoulder painb R >L limiting comfortable funciton, likely impingement related and RC stress. Rehabilitation Potential: Good Anticipated Interventions Patient/Client Instruction: Educate patient on: Condition and Plan of Care For the Purpose of:: To decrease pain, To improve nutrient delivery to tissue, To improve muscle performance and motor function, To increase tolerance to activity/condition/po sition and To improve health of tissue Therapeutic Exercise to Include: Strength training, Postural training, Flexibilty training, Passive ROM, Active ROM and Scapular Strength/Stabilizatio n For the Purpose of:: To decrease pain, To increase ROM, To improve nutrient delivery to tissue, To improve muscle performance and motor function and To increase tolerance to activity/condition/po sition Manual Therapy Techniques to Include: Mobilization, Passive ROM and Soft tissue mobilization For the Purpose of:: To improve nutrient delivery to tissue, To improve muscle performance and motor function and To increase tolerance to activity/condition/po sition TENS: Yes Cryotherapy (ice pack, ice massage): Yes Ultrasound (thermal/non thermal): Yes (nonthermal) For the Purpose of:: To decrease pain, To decrease swelling/inflammation and To improve nutrient delivery to tissue Text: Thank you for the opportunity to evaluate your patient. For Medicare and Medicare HMO plans, please review the plan of care and approve it. It will need to be FAXED BACK to us at [phone] (more content not included)... Normal [facility] Orthopedic Visit Reporton Orthopedic Visit Report [facility] [facility] [address] [place] [address] OFFICE VISIT Date of Service: 01/31/25 MR#: [id number] Acct: [id number] Name: AZALEA EDWARDS Rep #: [id number] : 1960 Provider: Dr. Bobby duron MD Age/Sex: 64/F Location: [facility].[place] Status: Signed Intake Vital Signs 01/27/25 08:57 Height 5 ft Weight: 138 lb 6 oz BMI 27.0 Intake Visit Reasons: BILATERAL SHOULDERS Chief Complaint: MRI review Accompanied by: Self Is patient in pain?: Yes Allergies No Known Allergies Allergy (Verified 01/31/25 08:09) Medications ???Medication ???Instructions ???Recorded ???Confirmed ???Type conjugated estrogens 0.625 mg/gram 0.625 applicatio topical QWEEK 0 11/30/18 01/31/25 History vaginal cream (Premarin) calcium carbonate 500 mg PO QDAY 01/27/25 01/31/25 H istory cranberry 500 mg capsule 500 mg PO QDAY 01/27/25 01/31/25 H istory duloxetine 60 mg capsule,delayed 60 mg PO DAILY Anxiety 01/27/25 History release sprinkle multivitamin 1 tab PO QDAY 01/27/25 01/31/25 Hi story ee-oqx-ufycz 120 mcg-biotin 1,250 cap PO 01/27/25 01/31/25 History mcg-K1 60 dgm-qcgfwzjj-mtmd capsule (Hair, Skin And Nails (Herbs)) turmeric 400 mg capsule 500 mg PO DAILY 01/27/25 01/31/25 History Have you fallen in the past year?: No PFSH Medical History Left shoulder pain Right shoulder pain Anxiety Surgical History partial intestine removal History of intestinal surgery Hx of breast implants, bilateral Family History Mother Hypertension Father COPD (chronic obstructive pulmonary disease) Social History Smoking Status: Former smoker how long ago did patient quit smokin alcohol intake: never what type of physical activity do you participate in: walking and running HPI BILATERAL SHOULDERS Details: This documentation accurately reflects the service provided and the decisions made by me, Dr. Bobby Arce MD 01/31/25 0804. Part of today???s visit was documented by [ ], acting as scribe. AZALEA EDWARDS is a 64 year old F here today for follow-up shoulder MRI and right side. Patient is a couple weeks from pickleball. It is feeling better with some rest. Ortho Exam General General: Yes no acute distress Neurologic: Yes alert and Yes oriented x3 Psychologic: Yes reasonable and appropriate Right Shoulder Skin/Wound: Yes CDI, No ecchymosis, No erythema and No swelling Testing: Positive AROM-Forward Elevation 0-180 Supplemental Info no report yet Coding Level of Care Code Off vis,est,level 4 Diagnoses Right shoulder pain M25.511 Assessment and Plan Assessment and Plan (1) Right shoulder pain: Status: Acute Plan: 64-year-old female follow-up right shoulder MRI. Unfortunately the report is not back. There does appear to be some tendinosis and thinning or partial undersurface tearing of the supraspinatus tendon but I will wait to get the full report before making full comments and treatment recommendations I have asked the patient to wait for that it can take up to 2 business days it was done on just Friday 3 days ago today is Friday. We can even do a phone call follow-up with the patient wishes. Clinical Quality Measures Falls Risk Screening/Assistive Devices Have you fallen in the past year?: No 01/31/25822 Date Bobby Arce MD Cosigner Signature: Date (if applicable) CC: Normal [facility] Upper Ext Joint Only(Routine )on 01-28-2025 Upper Ext Joint Only(Routine) [facility] Imaging Services [address] [place] [address] Upper Ext Joint Only(Routine) MR#: [id number] Acct: [id number] Name: AZALEA EDWARDS Rep #: [id number] : 1960 F 64 From: Gayle rosario MD PCP: BRADY ORTEGA Status: REG CLI Study: Upper Ext Joint Only(Routine) Date of Exam: 0 01/28/25 Exam# [id number] Ordering Dr: Bobby Arce MD PROCEDURE: UPPER EXT JOINT ONLY(ROUTINE) 01/28/2025 REASON FOR EXAM: PAIN TECHNIQUE: UPPER EXT JOINT ONLY(ROUTINE) Multiplanar and multisequence images were obtained without IV contrast administration. MRI RIGHT SHOULDER. COMPARISON: RADIOGRAPHS ON 01/27/2025. FINDINGS: Type III acromion. Degenerative joint disease of the acromioclavicular joint. Findings are demonstrated by joint space narrowing, osteophyte formation and degenerative periarticular bone marrow changes. Narrowing of the supraspinatus outlet and impingement on its myotendinous junction. High-grade almost complete tear of the insertional fibers of the supraspinatus tendon. 1.4 cm proximal retraction of the ruptured tendon fibers. Tendinosis with mild partial thickness tear of the insertional fibers of the infraspinatus tendon. Associated 1.42 cm intramuscular synovial/ganglion cyst adjacent to the myotendinous junction. Tendinosis with mild partial thickness tear of the insertional fibers of the subscapularis tendon. Unremarkable teres minor muscle and tendon. No evidence of muscular atrophy. Degenerative fibrocystic changes at the humeral insertion of the rotator cuff tendons. Fluid signal and edema in the subdeltoid/subacromia l bursa suggestive of bursitis and/or impingement. The remaining visualized osseous elements are intact with no evidence of fracture or dislocation. The remaining marrow signal is within normal limits. The visualized hyaline cartilage is degenerated. Mild degenerative joint disease of the glenohumeral joint. The glenoid labrum is degenerated. There is mild glenohumeral joint effusion. Mild changes of bicipital tendinosis. Mild subcoracoid effusion. Edema and increased signal of the rotator cuff interval, probably adhesive capsulitis. MRI/Upper Ext Joint Only(Routine) IMPRESSION: High-grade almost complete tear of the insertional fibers of the supraspinatus tendon. 1.4 cm proximal retraction of the ruptured tendon fibers. Tendinosis with mild partial thickness tear of the insertional fibers of the infraspinatus tendon. Associated 1.32 cm intramuscular synovial/ganglion cyst adjacent to the myotendinous junction. Tendinosis with mild partial thickness tear of the insertional fibers of the subscapularis tendon. Degenerated articular cartilage. Degenerated labrum. Mild bicipital tendinosis. Adhesive capsulitis. Reading Location: [place] [address] CC: BRADY SMITH; Dr. Bobby Arce MD Trading Analyst: Signed Normal [facility] Orthopedic Visit Reporton Orthopedic Visit Report [facility] [address] [place] [address] OFFICE VISIT Date of Service: 01/27/25 MR#: [id number] Acct: [id number] Name: AZALEA EDWARDS ANN Rep #: [id number] : 1960 Provider: Dr. Bobby duron MD Age/Sex: 64/F Location: [facility].[place] Status: Signed Intake Vital Signs 12/10/24 09:44 01/27/25 08:57 Height 5 ft 5 ft Weight: 138 lb 6 oz BMI 27.0 Intake Visit Reasons: RIGHT SHOULDER Chief Complaint: Right Shoulder Pain Accompanied by: Self Is patient in pain?: Yes Pain scale (1-10): 6 Allergies No Known Allergies Allergy (Verified 01/27/25 08:57) Medications ???Medication ???Instructions ???Recorded ???Confirmed ???Type conjugated estrogens 0.625 mg/gram 0.625 applicatio topical QWEEK 0 11/30/18 01/27/25 History vaginal cream (Premarin) calcium carbonate 500 mg PO QDAY 01/27/25 01/27/25 H istory cranberry 500 mg capsule 500 mg PO QDAY 01/27/25 01/27/25 H istory duloxetine 60 mg capsule,delayed 60 mg PO DAILY Anxiety 01/27/25 History release sprinkle multivitamin 1 tab PO QDAY 01/27/25 01/27/25 Hi story hl-yju-mktmu 120 mcg-biotin 1,250 cap PO 01/27/25 01/27/25 History mcg-K1 60 byj-mamxvjcr-ogid capsule (Hair, Skin And Nails (Herbs)) turmeric 400 mg capsule 500 mg PO DAILY 01/27/25 01/27/25 History Have you fallen in the past year?: No PFSH Medical History (Updated 01/27/25 @ 09:27 by Bobby Arce MD) Left shoulder pain Right shoulder pain Anxiety Surgical History partial intestine removal History of intestinal surgery Hx of breast implants, bilateral Family History Mother Hypertension Father COPD (chronic obstructive pulmonary disease) Social History Smoking Status: Former smoker how long ago did patient quit smokin alcohol intake: never what type of physical activity do you participate in: walking and running HPI RIGHT SHOULDER Details: This documentation accurately reflects the service provided and the decisions made by me, Dr. Bobby Arce MD 01/27/25 0837. Part of today???s visit was documented by [ ], acting as scribe. AZALEA EDWARDS is a 64 year old F here today for bilateral shoulder pain. bilateral shoulder pain. worse with pickelball raquet going back. lateral and anterior radiating down. RHD. no PT yet. 1 year hx. no falls. did some home based exercises and tried a month of meloxicam. worse on the right side. nsaids help. some weakness in FE. Office Procedures Ortho Injections Injections Yes Subacromial Injection Right Is this a patient provided medication?: No Details: Obtained consent for injection. Under sterile conditions, injected the patients right should subacromial with 2.0cc Kenalog and 4.0cc Bupivacaine. The patient tolerated the injection well without any noted complication. Patient should call our office if redness develops, pain worsens or if they have any concerns. Office Meds Kenalog 40 mg/mL suspension for injection Performing Provider: Bobby Arce MD Performing Location: [facility] Administered by: Bobby Arce MD on 01/27/25 09:44 Dose Route Admin Location Dispensed Lot Number Expiration Date [facility] Amilcar ufacturer 80 mg intra-articular Right Shoulder 2 mL [id number] 01/28/27 3241-1628-32 B [employer] Supplemental Info bilat shoulder x-rays 4 views obtained this demonstrates well maintained GH joint space, mild-mod ACJ arthrosis, mild signs impingement at GT, mild downsloping acromion. Coding Level of Care Code Attention Fabby Diagnoses Right shoulder pain M25.511 Left shoulder pain M25.512 CPT Codes program host.sub ([id number]) Comment [id number] and CPT inject major joint Assessment and Plan Assessment and Plan (1) Right shoulder pain: Status: Acute Plan: AZALEA EDWARDS is a 64 year old F here today for bilateral shoulder pain. This is worse on the right side. This could be impingement syndrome rotator cuff tendinitis or rotator cuff tears given that the pain has been getting worse over the last a year and some weakness in forward elevation on the right side I am particularly concerned for rotator cuff tear therefore I will go ahead and order an MRI of the right shoulder the patient also wanted to start physical therapy I put in referral for [facility] as well as a cortisone shot which we did today. The patient will follow-up after the MRI. Pros and cons risks and benefits of a right shoulder subacromial steroid injection were discussed. Patient wished to proceed. Risks include but not limited to infection, pain, stiffness, damage to other structures, neurovascular i (more content not included)... Normal [facility] Shoulder min 2 Viewson 01-27 Shoulder min 2 Views [facility] Imaging Services [address] [place], [place] [address] Shoulder min 2 Views MR#: [id number] Acct: [id number] Name: AZALEA EDWARDS ANN Rep #: [id number] : 1960 F 64 From: Brian Ramirez MD PCP: Dr. Charo Rich DO Status: DEP AMB Study: Shoulder min 2 Views Date of Exam: 01/27/25 Exam# [id number] Ordering Dr: Bobby Arce MD PROCEDURE: SHOULDER MIN 2 VIEWS 01/27/2025 REASON FOR EXAM: CHRONIC PAIN , WITH RECENT PICKLEBALL INJURY TECHNIQUE: SHOULDER MIN 2 VIEWS four views obtained COMPARISON: None FINDINGS: Bones: No demonstrated fracture or suspicious osseous lesion Joints: Mild age consistent glenohumeral and acromioclavicular joint arthrosis. Soft tissues: No suspicious soft tissue swelling or foreign body Other: RAD/Shoulder min 2 Views IMPRESSION: Age consistent degenerative changes, no acute findings Reading Location: [facility] CC: Dr. Charo Rich DO; Dr. Bobby Arce MD Trading Analyst: Signed [facility] Shoulder min 2 Views [facility] Imaging Services [address] [place] [address] Shoulder min 2 Views MR#: [id number] Acct: [id number] Name: AZALEA EDWARDS Rep #: [id number] : 1960 F 64 From: Brian Ramirez MD PCP: Dr. Charo Rich DO Status: DEP AMB Study: Shoulder min 2 Views Date of Exam: 01/27/25 Exam# [id number] Ordering Dr: Bobby Arce MD PROCEDURE: SHOULDER MIN 2 VIEWS 01/27/2025 REASON FOR EXAM: CHRONIC PAIN, NO INJURY TECHNIQUE: SHOULDER MIN 2 VIEWS, four views COMPARISON: None FINDINGS: No fracture or suspicious osseous lesion. Age consistent glenohumeral and acromioclavicular joint arthrosis. No foreign body or suspicious soft tissue swelling RAD/Shoulder min 2 Views IMPRESSION: Age consistent degenerative changes, no acute findings Reading Location: [facility] CC: Dr. Charo Rich DO; Dr. Bobby Arce MD Trading Analyst: Signed Normal [facility] MR/BMS.BPon 12-10-2024 MR/BMS.BP [facility] [address], [address] [place] [address] OFFICE VISIT Date of Service: 12/09/24 MR#: [id number] Acct: [id number] Name: AZALEA EDWARDS Rep #: [id number] : 1960 [facility] Age/Sex: 64/F Location: [facility] Status: Signed Intake Vital Signs 11/30/18 19:15 12/04/24 08:04 12/10/24 09:44 Height 5 ft 5 ft 5 ft BP Intake Visit Reasons: f/u Allergies No Known Allergies Allergy (Verified 11/30/18 19:15) Have you fallen in the past year?: No PFSH Medical History (Updated 07/03/21 @ 10:06 by Francois HEDRICK, PA) Anxiety Surgical History (Updated 01/28/22 @ 11:46 by Yvonne Rosenthal) partial intestine removal History of intestinal surgery Hx of breast implants, bilateral Family History (Updated 03/19/18 @ 09:52 by Tomasz Schroeder) Mother Hypertension Father COPD (chronic obstructive pulmonary disease) Social History (Updated 06/26/18 @ 12:16 by Aashish HEDRICK, PA) Smoking Status: Former smoker how long ago did patient quit smokin alcohol intake: never what type of physical activity do you participate in: walking and running HPI History of Present Illness HPI: Azalea Edwards is a 64 year-old female returning for therapy. She reported doing well overall. Azalea identified increased ability to consider stepchildren's perspectives and to avoid personalizing others' behaviors, which was reinforced. She discussed a pattern of recognizing others' negative performance vs. positive performance and wanting to change this. Encouraged verbalization of emotions while providing support. Worked on value-based action. Problem solved options for reducing negative focus. Provided psychoeducation and a handout on DBT skill Coping Ahead and practiced applying it. Discussed stressors related to parenting with . Explored what has been effective. Worked on radical acceptance. No SI. Future-oriented. Exam Mental Status Exam - Psych Appearance casually dressed and well kempt Attitude cooperative, calm, engaged and pleasant Activity/Motor Behavior MSE activity/motor behavior finding no adventitious movements and appropriate eye contact Speech regular rate, regular volume and regular prosody Mood OK Affect full range Thought Process linear, logical, coherent and goal directed Thought Content no delusions and no hallucinations Suicidal Ideation none Homicidal Ideation none Attention intact Concentration intact Sensorium/Orientation awake, alert and oriented x3 Memory/Cognition other (Reports difficulty remembering parts of childhood.) Insight good Judgement good Assessment Plan Assessment Plan (1) Anxiety disorder, unspecified: Plan: BH therapy using CBT, DBT, and ACT interventions to address thought patterns contributing to anxious symptoms and to teach coping skills. Psychiatric services to monitor anxious symptoms and medication effectiveness. Plan TREATMENT PLAN Goal 1 - Will eliminate or reduce level of anxiety and other negative emotions related to traumatic life events and trauma reminders AEB by pt.'s report of symptom reduction. Objective 1 - Participate in cognitive therapy to help identify, challenge, and replace biased, negative, and self-defeating thoughts resulting from traumatic upbringing, interactions with family of origin or reminders to traumatic upbringing. Intervention 1 - Using cognitive therapy techniques, explore self-talk and beliefs about self, others and world; teach thinking distortions; and explore alternative thinking. Objective 2 - Verbalize insight into how past relationship experiences may be influencing current experiences of anxiety and other negative emotions. Intervention 1 - Help pt. increase insight into the role that past relational patterns that may be influencing current vulnerabilities to anxiety and other negative emotions; identify core conflictual themes; and process with pt. toward making changes in current relational patterns. Visit Details Duration of visit (minutes): 60 Duration of counseling (minutes): 60 Total time (minutes): 60 Type of visit: psychotherapy and rsqb-ah-gmta Clinical Quality Measures Falls Risk Screening/Assistive Devices Have you fallen in the past year?: No Coding [place] [address] PSYTX W PT 60 MINUTES Patient Type Established Diagnoses Anxiety disorder, unspecified F41.9 Time Spent (min) 60 12/10/24 0944 Date Mili Mancuso [facility] Cosigner Signature: Date (if applicable) CC: Normal [facility] MR/BMS.BPon 12-04-2024 MR/BMS.BP [facility] [address], [address] [place] [address] OFFICE VISIT Date of Service: 12/02/24 MR#: [id number] Acct: [id number] Name: AZALEA EDWARDS Rep #: [id number] : 1960 Provider: [facility] Mili earl Age/Sex: 64/F Location: [facility] Status: Signed Intake Vital Signs 11/30/18 19:15 11/26/24 08:59 12/04/24 08:04 Height 5 ft 5 ft 5 ft BP Intake Visit Reasons: f/u Allergies No Known Allergies Allergy (Verified 11/30/18 19:15) Have you fallen in the past year?: No PFSH Medical History (Updated 07/03/21 @ 10:06 by Francois HEDRICK, PA) Anxiety Surgical History (Updated 01/28/22 @ 11:46 by Yvonne Rosenthal) partial intestine removal History of intestinal surgery Hx of breast implants, bilateral Family History (Updated 03/19/18 @ 09:52 by Tomasz Schroeder) Mother Hypertension Father COPD (chronic obstructive pulmonary disease) Social History (Updated 06/26/18 @ 12:16 by Aashish HEDRICK, PA) Smoking Status: Former smoker how long ago did patient quit smokin alcohol intake: never what type of physical activity do you participate in: walking and running HPI History of Present Illness HPI: Azalea Edwards is a 66 year-old female returning for therapy. She reported that stepdaughter's graduation democrat went well. Azalea identified less emotional distress and fewer feelings of rejection since discussing triggers, how triggers are impacted by past trauma, and stepdaughter's perspective as well as since working on reframing thinking that was triggering negative emotions. Reinforced her efforts and implementation of strategies. Discussed recent and past interactions with uvjipv-zl-afo that have triggered negative emotions. Encouraged verbalization of emotions while providing support. Normalized emotions. Examined ways she has previously managed and/or asserted herself with her drjvhb-qp-oah. Introduced DBT mindfulness skill of reasonable, cruz, and emotional mind. Azalea brought in a book she previously used in therapy (The Happiness Trap). Worked on how to apply these strategies, particularly mindfulness and defusion, to current stressors. No reports of SI. Future- oriented. Exam Mental Status Exam - Psych Appearance casually dressed and well kempt Attitude cooperative, calm, engaged and pleasant Activity/Motor Behavior MSE activity/motor behavior finding no adventitious movements and appropriate eye contact Speech regular rate, regular volume and regular prosody Mood OK and anxious Affect full range Thought Process linear, logical, coherent and goal directed Thought Content no delusions and no hallucinations Suicidal Ideation none Homicidal Ideation none Attention intact Concentration intact Sensorium/Orientation awake, alert and oriented x3 Memory/Cognition other (Reports difficulty remembering parts of childhood.) Insight good Judgement good Assessment Plan Assessment Plan (1) Anxiety disorder, unspecified: Plan: BH therapy using CBT, DBT, and ACT interventions to address thought patterns contributing to anxious symptoms and to teach coping skills. Psychiatric services to monitor anxious symptoms and medication effectiveness. Plan TREATMENT PLAN Goal 1 - Will eliminate or reduce level of anxiety and other negative emotions related to traumatic life events and trauma reminders AEB by pt.'s report of symptom reduction. Objective 1 - Participate in cognitive therapy to help identify, challenge, and replace biased, negative, and self-defeating thoughts resulting from traumatic upbringing, interactions with family of origin or reminders to traumatic upbringing. Intervention 1 - Using cognitive therapy techniques, explore self-talk and beliefs about self, others and world; teach thinking distortions; and explore alternative thinking. Objective 2 - Verbalize insight into how past relationship experiences may be influencing current experiences of anxiety and other negative emotions. Intervention 1 - Help pt. increase insight into the role that past relational patterns that may be influencing current vulnerabilities to anxiety and other negative emotions; identify core conflictual themes; and process with pt. toward making changes in current relational patterns. Visit Details Duration of visit (minutes): 60 Duration of counseling (minutes): 60 Total time (minutes): 60 Type of visit: psychotherapy and gbvb-pi-aoap Clinical Quality Measures Falls Risk Screening/Assistive Devices Have you fallen in the past year?: No [place] [address] PSYTX W PT 60 MINUTES Patient Type Established Diagnoses Anxiety disorder, unspecified F41.9 Time Spent (min) 60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 creamApply 1 gram to vagina 2-3 times weekly.Disp: 42.5 gRfl: 2 Prescriptions as of 05/20/2024 - conjugated estrogens (PREMARIN) vaginal cream Apply 1 gram to vagina 2-3 times weekly. - DULoxetine (CYMBALTA) 60 mg capsule Take 60 mg by mouth. - clobetasol (TEMOVATE) 0.05 % ointment Apply 1 application to affected area twice daily. For 4 weeks then use once weekly for maintenance - calciu (more content not included)... Normal [facility] High density lipoprotein (HD L) measurementOrdered By: Charo Rich on 05-20-2024 Cholesterol in HDL [Mass/Vol] 74 mg/dL >40 [facility] Comment on above: The drugs N-Acetylcy steine and Metamizole may falsely depress this assay. Reference Range HDL <40 mg/dL Low HDL Cholesterol HDL >or= 60 mg/dL High HDL Cholesterol Lipid Profileon 05-20-2024 Cholesterol [Mass/Vol] 263 mg/dL High 200 [facility] Comment on above: Result Comment: <200 mg/dL Desirable 200-240 mg/dL Borderline >240 mg/dL High Risk Performed By: #### L 500.4100 ####[facility] [address] [place], [address] Cholesterol in HDL [Mass/Vol] 74 mg/dL Normal [facility] Comment on above: Result Comment: The drugs N-Acetylcysteine and Metamizole may falsely depress this assay. Reference Range HDL <40 mg/dL Low HDL Cholesterol HDL >or= 60 mg/dL High HDL Cholesterol Performed By: #### L 500.4100 ####[facility] [address] [place], [address] Cholesterol in LDL [Mass/Vol] 164 mg/dL High 0-130 [facility] Comment on above: Performed By: #### L 500.4100 ####[facility] [address] [place], [address] Cholesterol in VLDL [Mass/Vol] 25 mg/dL Normal 5-40 [facility] Comment on above: Performed By: #### L 500.4100 ####[facility] [address] [place], [address] Triglyceride [Mass/Vol] 126 mg/dL Normal [facility] Comment on above: Result Comment: The drugs N-Acetylcysteine and Metamizole may falsely depress this assay. Serum Triglycerides Reference Interval Normal <150 mg/dL Borderline high 150 - 199 mg/dL High 200 - 499 mg/dL Very High > or = 500 mg/dL Performed By: #### L 500.4100 ####[facility] [address] [place], [address] Low density lipoprotein (LDL ) cholesterol measurementOrdered By: Charo Rich on 05-20-2024 Cholesterol in LDL [Mass/Vol] 164 mg/dL High 0-130 [facility] Serum or plasma cholesterol measurement (mass/volume)Ordered By: Charo Rich on 05-20-2024 Cholesterol [Mass/Vol] 263 mg/dL High <200 [facility] Comment on above: <200 mg/dL Desirable 200-240 mg/dL Borderline >240 mg/dL High Risk Triglycerides measurementOrd ered By: Charo Rich on 05-20-2024 Triglyceride [Mass/Vol] 126 mg/dL <199 [facility] Comment on above: The drugs N-Acetylcy steine and Metamizole may falsely depress this assay.Serum Triglycerides Reference Interval Normal <150 mg/dL Borderline high 150 - 199 mg/dL High 200 - 499 mg/dL Very High > or = 500 mg/dL Very low density lipoprotein (VLDL) cholesterol measurementOrdered By: Charo Rich on 05-20-2024 VLDL Cholesterol 25 mg/dL 5-40 [facility] Albumin to globulin ratioOrd ered By: Charo Rich on 05-12-2024 Albumin/Globulin [Mass ratio] 1.2 {ratio} 0.9-2.4 [facility] Bilirubin, totalOrdered By: Charo Rich on 05-12-2024 Bilirubin [Mass/Vol] 0.30 mg/dL 0.20-1.00 [facility] Comment on above: For patients on eltr ombopag therapy, use of Dimension [place] TBIL is not recommended. Blood urea nitrogen (BUN)/cr eatinine ratioOrdered By: Charo Rich on 05-12-2024 Urea nitrogen/Creatinine [Mass ratio] 19.7 mg/mg 10-20 [facility] CBC-Complete Blood Cnt No Di ffon 05-12-2024 Erythrocyte distribution width (RBC) [Ratio] 13.2 % Normal 11.6-14.6 [facility] Comment on above: Performed By: #### L 100.0500, L500.4050 ####[facility] [address] [place], [address] Hematocrit (Bld) [Volume fraction] 41.3 % Normal 37-47 [facility] Comment on above: Performed By: #### L 100.0500, L500.4050 ####[facility] [address] [place], [address] Hemoglobin (Bld) [Mass/Vol] 13.0 g/dL Normal 12.0-15.0 [facility] Comment on above: Performed By: #### L 100.0500, L500.4050 ####[facility] [address] [place], [address] MCH (RBC) [Entitic mass] 27.6 pg Normal 27.0-32.0 [facility] Comment on above: Performed By: #### L 100.0500, L500.4050 ####[facility] [address] [place], [address] MCHC (RBC) [Mass/Vol] 31.5 g/dL Low 32-36 [facility] Comment on above: Performed By: #### L 100.0500, L500.4050 ####[facility] [address] [place], [address] MCV (RBC) [Entitic vol] 87.7 fL Normal 81-99 [facility] Comment on above: Performed By: #### L 100.0500, L500.4050 ####[facility] [address] [place], [address] Platelet mean volume (Bld) [Entitic vol] 9.1 fL Normal 6.2-12.0 [facility] Comment on above: Performed By: #### L 100.0500, L500.4050 ####[facility] [address] [place], [address] Platelets (Bld) [#/Vol] 390 10*3/uL Normal 150-450 [facility] Comment on above: Performed By: #### L 100.0500, L500.4050 ####[facility] [address] [place], [address] RBC (Bld) [#/Vol] 4.71 10*6/uL Normal 4.2-5.4 [facility] Comment on above: Performed By: #### L 100.0500, L500.4050 ####[facility] [address] [place], [address] RDW SD 42.5 fl Normal 35.1-43.9 [facility] Comment on above: Performed By: #### L 100.0500, L500.4050 ####[facility] [address] [place], [address] WBC (Bld) [#/Vol] 6.5 10*3/uL Normal 4.4-11.0 [facility] Comment on above: Performed By: #### L 100.0500, L500.4050 ####[facility] [address] [place], [address] Carbon dioxide measurementOr dered By: Charo Rich on 05-12-2024 CO2 [Moles/Vol] 32.0 mmol/L 21.0-32.0 [facility] Chloride measurementOrdered By: Charo Rich on 05-12-2024 Chloride [Moles/Vol] 104 mmol/L 98-107 [facility] Comprehensive Metabolic Prof ilon 05-12-2024 Albumin [Mass/Vol] 3.7 g/dL Normal 3.2-5.0 [facility] Comment on above: Performed By: #### L 100.0500, L500.4050 ####[facility] [address] [place], [address] Albumin/Globulin [Mass ratio] 1.2 {ratio} Normal 0.9-2.4 [facility] Comment on above: Performed By: #### L 100.0500, L500.4050 ####[facility] [address] [place], [address] ALK P 117 U/L Normal 45-117 [facility] Comment on above: Performed By: #### L 100.0500, L500.4050 ####[facility] [address] [place], [address] ALT [Catalytic activity/Vol] 32 U/L Normal 13-56 [facility] Comment on above: Performed By: #### L 100.0500, L500.4050 ####[facility] [address] [place], [address] AST [Catalytic activity/Vol] 23 U/L Normal 15-37 [facility] Comment on above: Performed By: #### L 100.0500, L500.4050 ####[facility] [address] [place], [address] Bilirubin [Mass/Vol] 0.30 mg/dL Normal 0.20-1.00 [facility] Comment on above: Result Comment: For patients on eltrombopag therapy, use of Dimension [place] TBIL is not recommended. Performed By: #### L 100.0500, L500.4050 ####[facility] [address] [place], [address] BUN/CRE 19.7 RATIO Normal 10-20 [facility] Comment on above: Performed By: #### L 100.0500, L500.4050 ####[facility] [address] [place], [address] CA,Total 9.2 mg/dL Normal 8.5-10.1 [facility] Comment on above: Performed By: #### L 100.0500, L500.4050 ####[facility] [address] [place], [address] Chloride [Moles/Vol] 104 mmol/L Normal 98-107 [facility] Comment on above: Performed By: #### L 100.0500, L500.4050 ####[facility] [address] [place], [address] CO2 [Moles/Vol] 32.0 mmol/L Normal 21.0-32.0 [facility] Comment on above: Performed By: #### L 100.0500, L500.4050 ####[facility] [address] [place], [address] Creatinine [Mass/Vol] 0.71 mg/dL Normal 0.55-1.02 [facility] Comment on above: Result Comment: The validity of the calculated GFR GFRAA in patients over 70 years has not been determined. Clinical correlation is essential. Performed By: #### L 100.0500, L500.4050 ####[facility] [address] [place], [address] EST GFR - AA 106 mL/min Normal >60 [facility] Comment on above: Result Comment: Afri can French GFR Calc Performed By: #### L 100.0500, L500.4050 ####[facility] [address] [place], [address] GAP 4 Low 5-15 [facility] Comment on above: Performed By: #### L 100.0500, L500.4050 ####[facility] [address] [place], [address] GFR/1.73 sq M.predicted among non-blacks MDRD (S/P/Bld) [Vol rate/Area] 88 mL/min/{1.73_m2} Normal >60 [facility] Comment on above: Result Comment: Non- GFR Calc Performed By: #### L 100.0500, L500.4050 ####[facility] [address] [place], [address] Globulin (S) [Mass/Vol] 3.1 g/dL Normal 2.2-4.2 [facility] Comment on above: Performed By: #### L 100.0500, L500.4050 ####[facility] [address] [place], [address] Glucose [Mass/Vol] 90 mg/dL Normal 74-106 [facility] Comment on above: Performed By: #### L 100.0500, L500.4050 ####[facility] [address] [place], [address] Potassium [Moles/Vol] 4.6 mmol/L Normal 3.5-5.1 [facility] Comment on above: Performed By: #### L 100.0500, L500.4050 ####[facility] [address] [place], [address] Sodium [Moles/Vol] 140 mmol/L Normal 136-145 [facility] Comment on above: Performed By: #### L 100.0500, L500.4050 ####[facility] [address] [place], [address] T PROT 6.8 g/dL Normal 6.4-8.2 [facility] Comment on above: Performed By: #### L 100.0500, L500.4050 ####[facility] [address] [place], [address] Urea nitrogen [Mass/Vol] 14 mg/dL Normal 7-18 [facility] Comment on above: Performed By: #### L 100.0500, L500.4050 ####[facility] [address] [place], [address] Erythrocyte distribution wid th ratioOrdered By: Charo Rich on 05-12-2024 Erythrocyte distribution width (RBC) [Ratio] 13.2 % 11.6-14.6 [facility] Erythrocyte distribution wid th standard deviationOrdered By: Charo Rich on 05-12-2024 Erythrocyte distribution width (RBC) [Entitic vol] 42.5 fL 35.1-43.9 [facility] Estimated glomerular filtrat ion rate (GFR) AmericanOrdered By: Charo Rich on 05-12-2024 Estimated GFR (MDRD) Amer 106 mL/min >60 [facility] Comment on above: GFR Calc Glomerular filtration rate ( GFR) estimationOrdered By: Charo Rich on 05-12-2024 Estimated GFR (MDRD) Non-Af Amer 88 mL/min >60 [facility] Comment on above: Non- GFR Calc Glucose measurementOrdered B y: Charo Rich on 05-12-2024 Glucose [Mass/Vol] 90 mg/dL 74-106 [facility] Hematocrit Auto (Bld) [Volum e fraction]Ordered By: Charo Rich on 05-12-2024 Hematocrit (Bld) [Volume fraction] 41.3 % 37-47 [facility] Hemoglobin measurementOrdere d By: Charo Rich on 05-12-2024 Hemoglobin (Bld) [Mass/Vol] 13.0 g/dL 12.0-15.0 [facility] Laboratory - Chemistry and C hemistry - challengeOrdered By: Charo Rich on 05-12-2024 AST [Catalytic activity/Vol] 23 U/L 15-37 [facility] MCV (mean corpuscular volume ) determinationOrdered By: Charo Rich on 05-12-2024 MCV (RBC) [Entitic vol] 87.7 fL 81-99 [facility] Mean corpuscular hemoglobin (MCH) determinationOrdered By: Charo Rich on 05-12-2024 MCH (RBC) [Entitic mass] 27.6 pg 27.0-32.0 [facility] Mean corpuscular hemoglobin concentration (MCHC) determinationOrdered By: Charo Rich on 05-12-2024 MCHC (RBC) [Mass/Vol] 31.5 g/dL Low 32-36 [facility] Mean platelet volume determi nationOrdered By: Charo Rich on 05-12-2024 Platelet mean volume (Bld) [Entitic vol] 9.1 fL 6.2-12.0 [facility] Platelet countOrdered By: Michelle Rich on 05-12-2024 Platelets (Bld) [#/Vol] 390 10*3/uL 150-450 [facility] Potassium measurementOrdered By: Charo Rich on 05-12-2024 Potassium [Moles/Vol] 4.6 mmol/L 3.5-5.1 [facility] RBC Auto (Bld) [#/Vol]Ordere d By: Charo Rich on 05-12-2024 RBC (Bld) [#/Vol] 4.71 10*6/uL 4.2-5.4 [facility] Serum anion gap measurementO rdered By: Charo Rich on 05-12-2024 Anion gap [Moles/Vol] 4 mmol/L Low 5-15 [facility] Serum globulin measurementOr dered By: Charo Rich on 05-12-2024 Globulin (S) [Mass/Vol] 3.1 g/dL 2.2-4.2 [facility] Serum or plasma alanine dias otransferase (ALT) measurementOrdered By: Charo Rich on 05-12-2024 ALT [Catalytic activity/Vol] 32 U/L 13-56 [facility] Serum or plasma albumin arabella urement (mass/volume)Ordered By: Charo Rich on 05-12-2024 Albumin [Mass/Vol] 3.7 g/dL 3.2-5.0 [facility] Serum or plasma alkaline guerita sphatase measurementOrdered By: Charo Rich on 05-12-2024 ALP [Catalytic activity/Vol] 117 U/L 45-117 [facility] Serum or plasma calcium arabella urement (mass/volume)Ordered By: Charo Rich on 05-12-2024 Calcium [Mass/Vol] 9.2 mg/dL 8.5-10.1 [facility] Serum or plasma creatinine m easurement (mass/volume)Ordered By: Charo Rich on 05-12-2024 Creatinine [Mass/Vol] 0.71 mg/dL 0.55-1.02 [facility] Comment on above: The validity of the calculated GFR & GFRAA in patients over 70 years has not been determined. Clinical correlation is essential. Serum or plasma urea nitroge n measurement (mass/volume)Ordered By: Charo Rich on 05-12-2024 Urea nitrogen [Mass/Vol] 14 mg/dL 7-18 [facility] Sodium levelOrdered By: Burke Rich on 05-12-2024 Sodium [Moles/Vol] 140 mmol/L 136-145 [facility] Total proteinOrdered By: Cristhian Rich on 05-12-2024 Protein [Mass/Vol] 6.8 g/dL 6.4-8.2 [facility] White blood cell (WBC) count Ordered By: Charo Jake on 05-12-2024 WBC (Bld) [#/Vol] 6.5 10*3/uL 4.4-11.0 [facility] CNOVon 04-10-2024 CNOV Office Visit (UCWSTR ) AZALEA EDWARDS ([id number]) 1960 F Date Time Provider Department 04/10/24 1:15 PM [facility] During your visit today, we recorded the following information about you: Temperature Pulse Respiration Blood pressure 97.6 degrees 74/minute 16/minute 128/62 Weight 62.8 kg Olga Heck PA 04/10/2024 1:16 PM Signed This note was created using Purpleriter. Subjective Azalea Edwards is a 63 year old female. HPI 63-year-old female presents for rash. Patient states that she noticed a rash on her right arm after working out in the garden last week. She states the rash is now spread to her side. She has been using calamine lotion with some improvement, but states rash is very itchy. No fevers. No difficulty breathing or swelling. No new lotions, detergents, body washes, medication. No other complaint. PAST MEDICAL HISTORY Diagnosis Date Hyperlipidemia PAST SURGICAL HISTORY Procedure Laterality Date PAST SURGICAL HISTORY OF 2013 SBO ALLERGIES Patient has no known allergies. MEDICATIONS DULoxetine (CYMBALTA) 60 mg capsule Take 60 mg by mouth. conjugated estrogens (PREMARIN) vaginal cream Apply 1 gram to vagina 2-3 times weekly. clobetasol (TEMOVATE) 0.05 % ointment Apply 1 application to affected area twice daily. For 4 weeks then use once weekly for maintenance calcium carbonate (CALCIUM 500 ORAL) Take by mouth. TURMERIC ORAL Take by mouth. MULTI-VITAMIN ORAL Take by mouth. cranberry fruit extract (CRANBERRY CONCENTRATE ORAL) Take 850 mg by mouth. biotin 5 mg tab Take 5 mg by mouth once daily. predniSONE (DELTASONE) 10 mg tablet Take 4 tabs daily for 3 days, then 2 tabs daily for 3 days, then 1 tab daily for 3 days with food. FAMILY HISTORY Problem Relation Age of Onset Hypertension Mother Stroke Mother Lipids Sister COPD Sister Hypertension Sister Diabetes Brother Obesity Brother Hypertension Brother Social History Tobacco Use Smoking status: Former Current packs/day: 0.00 Average packs/day: 0.5 packs/day for 4.0 years (2.0 ttl pk-yrs) Types: Cigarettes Start date: 08/11/1991 Quit date: 08/11/1995 Years since quittin.6 Passive exposure: Never Smokeless tobacco: Never Vaping Use Vaping status: Never Used Substance Use Topics Alcohol use: No Drug use: Never Review of Systems Constitutional: Negative for chills and fever. HENT: Negative for congestion, ear pain and sore throat. Respiratory: Negative for cough and shortness of breath. Cardiovascular: Negative for chest pain. Gastrointestinal: Negative for diarrhea and vomiting. Skin: Positive for rash. Objective BP 128/62 Pulse 74 Temp 36.4 ?C (97.6 ?F) Resp 16 Wt 62.8 kg (138 lb 7.2 oz) SpO2 95% BMI 27.04 kg/m? Physical Exam Vitals and nursing note reviewed. Constitutional: General: She is not in acute distress. Appearance: Normal appearance. She is not toxic-appearing. HENT: Nose: Nose normal. Mouth/Throat: Mouth: Mucous membranes are moist. Eyes: Conjunctiva/sclera: Conjunctivae normal. Cardiovascular: Rate and Rhythm: Normal rate and regular rhythm. Pulmonary: Effort: Pulmonary effort is normal. Breath sounds: Normal breath sounds. Skin: General: Skin is warm and dry. Findings: Rash present. Comments: Vesicular linear rash with erythema noted to right arm and right flank. Patient reports it is pruritic. No drainage. No fluctuance. No abscess. Appears consistent with a contact dermatitis Neurological: Mental Status: She is alert. Assessment and Plan ASSESSMENT/PLAN: 1. Allergic contact dermatitis due to plants, except food - ICD9: 692.6, ICD10: L23.7 - Oral Steriod tx -Prednisone taper - discussed skin care of rash - follow up if symptoms persist or worsen. Diagnosis and treatment plan were discussed and questions were answered to the patient's satisfaction. Pt acknowledged understanding of concepts and follow up plan. Specific signs and symptoms that would indicate the need for higher level of care were discussed in detail warranting prompt ER evaluation. RYLEY Gotti Allergies As of Date: 04/10/2024 (No Known Allergies) Date Reviewed: 04/10/2024 Reviewed by: Verónica Garcia MA - Fully Assessed Reason for Visit: Rash [1087] Cmt: right arm and right side, itching x 1 week Primary Visit Diagnosis:Allergic contact dermatitis due to plants, except food [L23.7] Order(s):predniSONE (DELTASONE) 10 mg tabletTake 4 tabs daily for 3 days, then 2 tabs daily for 3 days, then 1 tab daily for 3 days with food.Disp: 21 tabletRfl: 0 Prescriptions as of 04/10/2024 - DULoxetine (CYMBALTA) 60 mg capsule Take 60 mg by mouth. - predniSONE (DELTASONE) 10 mg tablet Take 4 tabs daily for 3 days, then 2 tabs daily for 3 days, then 1 tab daily for 3 days with food. - conjugated estrogens (KS (more content not included)... Normal [facility] No Panel Informationon 10-14 Culture Urine <10,000 cfu/ml. No Significant growth. Sensitivity not indicated. [facility] Work Phone: Basophil percentageOrdered B y: Charo Rich on 07-31-2023 Bilirubin [Mass/Vol] 0.40 mg/dL 0.20-1.00 [facility] Comment on above: For patients on eltr ombopag therapy, use of Dimension [place] TBIL is not recommended. Chloride [Moles/Vol] 104 mmol/L 98-107 [facility] Cholesterol [Mass/Vol] 246 mg/dL <200 [facility] Comment on above: <200 mg/dL Desirable 200-240 mg/dL Borderline >240 mg/dL High Risk Glucose [Mass/Vol] 85 mg/dL 74-106 [facility] Hemoglobin (Bld) [Mass/Vol] 12.7 g/dL 12.0-15.0 [facility] Potassium [Moles/Vol] 3.7 mmol/L 3.5-5.1 [facility] Protein [Mass/Vol] 7.2 g/dL 6.4-8.2 [facility] Sodium [Moles/Vol] 136 mmol/L 136-145 [facility] Triglyceride [Mass/Vol] 136 mg/dL <199 [facility] Comment on above: The drugs N-Acetylcy steine and Metamizole may falsely depress this assay.Serum Triglycerides Reference Interval Normal <150 mg/dL Borderline high 150 - 199 mg/dL High 200 - 499 mg/dL Very High > or = 500 mg/dL WBC (Bld) [#/Vol] 5.6 10*3/uL 4.4-11.0 [facility] Determination of erythrocyte mean corpuscular volume (MCV)Ordered By: Charo Rich on 07-31-2023 MCV (RBC) [Entitic vol] 89.7 fL 81-99 [facility] Erythrocyte distribution wid th ratioOrdered By: Charo Rich on 07-31-2023 Erythrocyte distribution width (RBC) [Ratio] 13.2 % 11.6-14.6 [facility] Erythrocyte distribution wid th standard deviationOrdered By: Charo Rich on 07-31-2023 Erythrocyte distribution width (RBC) [Entitic vol] 42.9 fL 35.1-43.9 [facility] Hematocrit Auto (Bld) [Volum e fraction]Ordered By: Charo Rich on 07-31-2023 Hematocrit (Bld) [Volume fraction] 41.0 % 37-47 [facility] Laboratory - Chemistry and C hemistry - challengeOrdered By: Charo Rich on 07-31-2023 Albumin/Globulin [Mass ratio] 1.1 {ratio} 0.9-2.4 [facility] ALP [Catalytic activity/Vol] 83 U/L 45-117 [facility] ALT [Catalytic activity/Vol] 29 U/L 13-56 [facility] Cholesterol in HDL (Body fld) [Mass/Vol] 67 mg/dL >40 [facility] Comment on above: The drugs N-Acetylcy steine and Metamizole may falsely depress this assay. Reference Range HDL <40 mg/dL Low HDL Cholesterol HDL >or= 60 mg/dL High HDL Cholesterol Cholesterol in LDL (Body fld) [Moles/Vol] 152 mg/dL 0-130 [facility] Cholesterol in VLDL Calc [Moles/Vol] 27 mg/dL 5-40 [facility] CO2 [Moles/Vol] 29.0 mmol/L 21.0-32.0 [facility] Globulin (S) [Mass/Vol] 3.5 g/dL 2.2-4.2 [facility] Urea nitrogen/Creatinine [Mass ratio] 20.2 mg/mg 10-20 [facility] Laboratory - Hematology and Cell countsOrdered By: Charo Rich on 07-31-2023 MCH (RBC) [Entitic mass] 27.8 pg 27.0-32.0 [facility] MCHC (RBC) [Mass/Vol] 31.0 g/dL 32-36 [facility] Platelets (Bld) [#/Vol] 325 10*3/uL 150-450 [facility] No Panel InformationOrdered By: Charo Rich on 07-31-2023 Estimated GFR (MDRD) Amer 130 mL/min >60 [facility] Comment on above: GFR Calc Estimated GFR (MDRD) Non-Af Amer 108 mL/min >60 [facility] Comment on above: Non- GFR Calc Platelet mean volume Inocente-Ec ker (Bld) [Entitic vol]Ordered By: Charo Rich on 07-31-2023 Platelet mean volume (Bld) [Entitic vol] 9.5 fL 6.2-12.0 [facility] RBC Auto (Bld) [#/Vol]Ordere d By: Charo Rich on 07-31-2023 RBC (Bld) [#/Vol] 4.57 10*6/uL 4.2-5.4 [facility] Serum or plasma calcium arabella urement (mass/volume)Ordered By: Charo Rich on 07-31-2023 Calcium [Mass/Vol] 8.9 mg/dL 8.5-10.1 [facility] Serum or plasma creatinine m easurement (mass/volume)Ordered By: Charo Rich on 07-31-2023 Creatinine [Mass/Vol] 0.60 mg/dL 0.55-1.02 [facility] Comment on above: The validity of the calculated GFR & GFRAA in patients over 70 years has not been determined. Clinical correlation is essential. Serum or plasma urea nitroge n measurement (mass/volume)Ordered By: Charo Rich on 07-31-2023 Urea nitrogen [Mass/Vol] 12 mg/dL 7-18 [facility] Thin prep Papanicolaou smear with manual screeningOrdered By: Charo Rich on 07-31-2023 Thin prep Papanicolaou smear with manual screening 3.7 g/dL 3.2-5.0 [facility] Thin prep Papanicolaou smear with manual screening 22 U/L 15-37 [facility] Thin prep Papanicolaou smear with manual screening 3 5-15 [facility] Basophil percentageon 2021 Bilirubin [Mass/Vol] 0.40 mg/dL 0.20-1.00 [facility] Work Phone: Comment on above: For patients on eltr ombopag therapy, use of Dimension [place] TBIL is not recommended. Chloride [Moles/Vol] 107 mmol/L 98-107 [facility] Work Phone: Cholesterol [Mass/Vol] 234 mg/dL <200 [facility] Work Phone: Comment on above: <200 mg/dL Desirable 200-240 mg/dL Borderline >240 mg/dL High Risk Glucose [Mass/Vol] 93 mg/dL 74-106 [facility] Work Phone: Potassium [Moles/Vol] 4.0 mmol/L 3.5-5.1 [facility] Work Phone: Protein [Mass/Vol] 7.2 g/dL 6.4-8.2 [facility] Work Phone: [phone] Sodium [Moles/Vol] 140 mmol/L 136-145 [facility] Work Phone: [phone] Triglyceride [Mass/Vol] 128 mg/dL <199 [facility] Work Phone: [phone] Comment on above: The drugs N-Acetylcy steine and Metamizole may falsely depress this assay.Serum Triglycerides Reference Interval Normal <150 mg/dL Borderline high 150 - 199 mg/dL High 200 - 499 mg/dL Very High > or = 500 mg/dL WBC (Bld) [#/Vol] 5.8 10*3/uL 4.4-11.0 [facility] Work Phone: [phone] Blood erythrocytes count (nu mber/volume)on 05-01-2022 RBC (Bld) [#/Vol] 4.95 10*6/uL 4.2-5.4 [facility] Work Phone: [phone] Blood hemoglobin measurement (mass/volume)on 05-01-2022 Hemoglobin (Bld) [Mass/Vol] 14.2 g/dL 12.0-15.0 [facility] Work Phone: [phone] Blood platelet mean volumeon 05-01-2022 Platelet mean volume (Bld) [Entitic vol] 9.0 fL 6.2-12.0 [facility] Work Phone: [phone] Determination of erythrocyte mean corpuscular volume (MCV)on 05-01-2022 MCV (RBC) [Entitic vol] 86.1 fL 81-99 [facility] Work Phone: [phone] Hematocrit Auto (Bld) [Volum e fraction]on 05-01-2022 Hematocrit (Bld) [Volume fraction] 42.6 % 37-47 [facility] Work Phone: [phone] Laboratory - Chemistry and C hemistry - challengeon 05-01-2022 ALP [Catalytic activity/Vol] 85 U/L 45-117 [facility] Work Phone: [phone] ALT [Catalytic activity/Vol] 24 U/L 13-56 [facility] Work Phone: [phone] CO2 [Moles/Vol] 28.0 mmol/L 21.0-32.0 [facility] Work Phone: [phone] Globulin (S) [Mass/Vol] 3.3 g/dL 2.2-4.2 [facility] Work Phone: [phone] Urea nitrogen/Creatinine [Mass ratio] 14.5 mg/mg 10-20 [facility] Work Phone: [phone] Laboratory - Hematology and Cell countson 05-01-2022 Erythrocyte distribution width (RBC) [Entitic vol] 40.3 fL 35.1-43.9 [facility] Work Phone: [phone] Erythrocyte distribution width (RBC) [Ratio] 12.9 % 11.6-14.6 [facility] Work Phone: [phone] MCH (RBC) [Entitic mass] 28.7 pg 27.0-32.0 [facility] Work Phone: [phone] MCHC Auto (RBC) [Mass/Vol]on 05-01-2022 MCHC (RBC) [Mass/Vol] 33.3 g/dL 32-36 [facility] Work Phone: No Panel Informationon 05-01 Estimated GFR (MDRD) Amer 110 mL/min >60 [facility] Work Phone: Comment on above: GFR Calc Estimated GFR (MDRD) Non-Af Amer 91 mL/min >60 [facility] Work Phone: [phone] Comment on above: Non- GFR Calc Platelets bldon 05-01-2022 Platelets (Bld) [#/Vol] 334 10*3/uL 150-450 [facility] Work Phone: [phone] Serum or plasma albumin arabella urement (mass/volume)on 05-01-2022 Albumin [Mass/Vol] 3.9 g/dL 3.2-5.0 [facility] Work Phone: [phone] Serum or plasma albumin/glob ulin mass ratioon 05-01-2022 Albumin/Globulin [Mass ratio] 1.2 {ratio} 0.9-2.4 [facility] Work Phone: Serum or plasma calcium arabella urement (mass/volume)on 05-01-2022 Calcium [Mass/Vol] 8.9 mg/dL 8.5-10.1 [facility] Work Phone: Serum or plasma cholesterol in HDL measurement (mass/volume)on 05-01-2022 Cholesterol in HDL [Mass/Vol] 62 mg/dL >40 [facility] Work Phone: Comment on above: The drugs N-Acetylcy steine and Metamizole may falsely depress this assay. Reference Range HDL <40 mg/dL Low HDL Cholesterol HDL >or= 60 mg/dL High HDL Cholesterol Serum or plasma cholesterol in VLDL measurement (mass/volume)on 05-01-2022 Cholesterol in VLDL [Mass/Vol] 26 mg/dL 5-40 [facility] Work Phone: Serum or plasma creatinine m easurement (mass/volume)on 05-01-2022 Creatinine [Mass/Vol] 0.69 mg/dL 0.55-1.02 [facility] Work Phone: Comment on above: The validity of the calculated GFR & GFRAA in patients over 70 years has not been determined. Clinical correlation is essential. Serum or plasma low density lipoprotein (LDL) cholesterol measurement (mass/volume)on 05-01-2022 Cholesterol in LDL [Mass/Vol] 146 mg/dL 0-130 [facility] Work Phone: Serum or plasma urea nitroge n measurement (mass/volume)on 05-01-2022 Urea nitrogen [Mass/Vol] 10 mg/dL 7-18 [facility] Work Phone: Thin prep Papanicolaou smear with manual screeningon 05-01-2022 Thin prep Papanicolaou smear with manual screening 18 U/L 15-37 [facility] Work Phone: Thin prep Papanicolaou smear with manual screening 5 5-15 [facility] Work Phone: No Panel Informationon 07-03 POC SARS CoV-2 Antigen Positive [facility] Work Phone: Vital Signs Date Time Vital Sign Value Performing Clinician Facility 05-20-2024 07:01-0500 Body height 153.7 cm Ana Fitz EMISSIONS ENGINEER.STORAGE RECEIPT POSTER Work Phone: [facility] 05-20-2024 07:01-0500 Body mass index (BMI) [Ratio] 26.89 kg/m2 Ana [place] Charles EMISSIONS ENGINEER.STORAGE RECEIPT POSTER Work Phone: [facility] 05-20-2024 07:01-0500 Body weight 63.5 kg Ana [place] EMISSIONS ENGINEER.STORAGE RECEIPT POSTER Work Phone: [facility] 05-20-2024 07:01-0500 Diastolic blood pressure 82 mm[Hg] Ana [place] EMISSIONS ENGINEER.STORAGE RECEIPT POSTER Work Phone: [facility] 05-20-2024 07:01-0500 Systolic blood pressure 136 mm[Hg] Ana [place] EMISSIONS ENGINEER.STORAGE RECEIPT POSTER Work Phone: [facility] 04-10-2024 13:10-0400 Body mass index (BMI) [Ratio] 27.04 kg/m2 Krislyn Aberegg PA Work Phone: [facility] 04-10-2024 13:10-0400 Body temperature 97.59 [degF] Krislyn Aberegg PA Work Phone: [facility] 04-10-2024 13:10-0400 Body weight 62.8 kg Krislyn Aberegg PA Work Phone: [facility] 04-10-2024 13:10-0400 Diastolic blood pressure 62 mm[Hg] Krislyn Aberegg PA Work Phone: [facility] 04-10-2024 13:10-0400 Heart rate 74 /min Krislyn Aberegg PA Work Phone: [facility] 04-10-2024 13:10-0400 Respiratory rate 16 /min Krislyn Aberegg PA Work Phone: [facility] 04-10-2024 13:10-0400 SaO2% (BldA) [Mass fraction] 95 % Olga Heck PA Work Phone: [facility] 04-10-2024 13:10-0400 Systolic blood pressure 128 mm[Hg] Olga Casillasgg PA Work Phone: [facility] 10-29-2023 09:00-0400 Diastolic Blood Pressure Non-Invasive 72 mm[Hg] YOJANA IRIS DO [facility] 10-29-2023 09:00-0400 Heart rate 74 /min YOJANA IRIS DO [facility] 10-29-2023 09:00-0400 Respiratory rate 14 /min YOJANA IRIS DO [facility] 10-29-2023 09:00-0400 Systolic Blood Pressure Non-Invasive 125 mm[Hg] YOJANA IRIS DO [facility] 10-29-2023 08:55-0400 Diastolic Blood Pressure Non-Invasive 64 mm[Hg] YOJANA IRIS DO [facility] 10-29-2023 08:55-0400 Heart rate 76 /min YOJANA IRIS DO [facility] 10-29-2023 08:55-0400 Respiratory rate 17 /min YOJANA IRIS DO [facility] 10-29-2023 08:55-0400 Systolic Blood Pressure Non-Invasive 115 mm[Hg] YOJANA IRIS DO [facility] 10-29-2023 08:50-0400 Diastolic Blood Pressure Non-Invasive 68 mm[Hg] YOJANA IRIS DO [facility] 10-29-2023 08:50-0400 Heart rate 73 /min YOJANA IRIS DO [facility] 10-29-2023 08:50-0400 Respiratory rate 16 /min YOJANA IRIS DO [facility] 10-29-2023 08:50-0400 Systolic Blood Pressure Non-Invasive 114 mm[Hg] YOJANA IRIS DO [facility] 10-29-2023 08:45-0400 Body temperature 96.8 [degF] YOJANA IRIS DO [facility] 10-29-2023 08:40-0400 Respiratory Rate - Anes 14 br/min YOJANA IRIS DO [facility] 10-29-2023 08:35-0400 Respiratory Rate - Anes 17 br/min YOJANA IRIS DO [facility] 10-29-2023 08:30-0400 Respiratory Rate - Anes 11 br/min YOJANA IRIS DO [facility] 10-29-2023 07:29-0400 Body height 154 cm YOJANA IRIS DO [facility] 10-29-2023 07:29-0400 Body weight 63.7 kg YOJANA IRIS DO [facility] 10-29-2023 07:29-0400 Body weight 26.86 kg/m2 YOJANA IRIS DO [facility] 10-29-2023 07:17-0400 Body height 154 cm YOJANA IRIS DO [facility] 10-29-2023 07:17-0400 Body temperature 97.7 [degF] YOJANA IRIS DO [facility] 10-29-2023 07:17-0400 Body weight 63.7 kg YOJANA SIMMONS DO [facility] 10-29-2023 07:17-0400 Heart rate 62 /min YOJANA SIMMONS DO [facility] 05-13-2023 06:57-0500 Body height 152.4 cm Ana [place] EMISSIONS ENGINEER.ST[employer]AGE RECEIPT POSTER Work Phone: [facility] 05-13-2023 06:57-0500 Body weight 62.78 kg Ana Fitz EMISSIONS ENGINEER.STORAGE RECEIPT POSTER Work Phone: [facility] 05-13-2023 06:57-0500 Diastolic blood pressure 66 mm[Hg] Ana Fitz EMISSIONS ENGINEER.STORAGE RECEIPT POSTER Work Phone: [facility] 05-13-2023 06:57-0500 Systolic blood pressure 124 mm[Hg] Ana Fitz EMISSIONS ENGINEER.STORAGE RECEIPT POSTER Work Phone: [facility] 07-03-2021 08:30-0500 Body temperature 97.3 [degF] Dr. Charo Rich Work Phone: [facility] Work Phone: 07-03-2021 08:30-0500 Diastolic blood pressure 62 mm[Hg] Dr. Charo Rich Work Phone: [facility] Work Phone: 07-03-2021 08:30-0500 Heart rate 72 /min Dr. Charo Rich Work Phone: [facility] Work Phone: 07-03-2021 08:30-0500 Respiratory rate 16 /min Dr. Charo Rich Work Phone: [facility] Work Phone: 07-03-2021 08:30-0500 SaO2% (BldA) [Mass fraction] 97 % Dr. Charo Rich Work Phone: [facility] Work Phone: 07-03-2021 08:30-0500 Systolic blood pressure 122 mm[Hg] Dr. Charo Rich Work Phone: [facility] Work Phone: Encounters Encounter Date Encounter Type Care Provider Facility Start: 06-08-2025 ambulatory Bobby Mollison Facility :[facility] Start: 05-09-2025 ambulatory Bobby Mollison Facility :[facility] Start: 04-28-2025 End: 04-28-2025 ambulatory ANDREY LUIS Facility:[facility] Start: 04-21-2025 End: 04-21-2025 ambulatory Bobby Mollison Facility:[facility] Start: 04-11-2025 End: 04-11-2025 ambulatory ANDREY LUIS Facility:[facility] Start: 03-15-2025 End: 03-15-2025 ambulatory ANDREY LUIS Facility:[facility] Start: 03-04-2025 End: 03-04-2025 ambulatory ANDREY LUIS Facility:[facility] Start: 03-02-2025 ambulatory Bobby Mollison Facility :[facility] Start: 03-02-2025 End: 03-02-2025 ambulatory Bobby Mollison Facility:[facility] Start: 02-22-2025 End: 02-22-2025 ambulatory Bobby Mollison Facility:[facility] Start: 02-10-2025 End: 02-10-2025 ambulatory Bobby Mollison Facility:[facility] Start: 02-10-2025 End: 02-10-2025 ambulatory ANDREY LUIS Facility:[facility] Start: 02-08-2025 End: 02-10-2025 Telephone encounter Ana Byrnes APRN.CNP Work Phone: OB/Gynecology Comment on above: Patient Question Start: 02-07-2025 End: 02-07-2025 ambulatory Bobby Mollison Facility:[facility] Start: 01-31-2025 End: 01-31-2025 ambulatory Bobby Mollison Facility:[facility] Start: 01-27-2025 End: 01-28-2025 ambulatory Bobby Mollison Facility:[facility] Start: 12-09-2024 End: 12-09-2024 ambulatory Charo Antonysay Facility:[facility] Start: 12-02-2024 End: 12-02-2024 ambulatory Charo Jake Facility:[facility] Start: 11-25-2024 End: 11-25-2024 ambulatory [facility] Facility:[facility] Start: 11-15-2024 End: 11-15-2024 ambulatory [facility] Facility:[facility] Start: 07-23-2024 End: 07-23-2024 Telephone encounter Ana Byrnes APRN.STORAGE RECEIPT POSTER Work Phone: OB/Gynecology Comment on above: Results Start: 07-21-2024 End: 07-21-[address] Charo Rich DO Work Phone: [facility] Work Phone: Start: 07-21-2024 End: 07-21-2024 Patient encounter procedure Ana Byrnes THORACIC MEDICINE SPECIALIST-C -Outpatient Bone Densitometry Work Phone: Start: 07-21-2024 End: 07-21-2024 ambulatory Ana Byrnes THORACIC MEDICINE SPECIALIST Facility:[facility] Start: 06-16-2024 Encounter for genera l adult medical examination without abnormal findings [facility] Start: 05-20-2024 End: 05-20-2024 ambulatory [facility] Facility:[facility] Start: 05-20-2024 End: 05-20-2024 Patient encounter procedure Ana Byrnes EMISSIONS ENGINEER.STORAGE RECEIPT POSTER Work Phone: OB/Gynecology Comment on above: Encounter for gyneco logical examination (general) (routine) without abnormal findings (Primary Dx) Start: 05-20-2024 End: 05-20-2024 Patient encounter status Ana Byrnes EMISSIONS ENGINEER.STORAGE RECEIPT POSTER Work Phone: [facility] Start: 05-20-2024 End: 05-20-2024 ambulatory [facility] Facility:[facility] Start: 05-12-2024 End: 05-12-[address] Charo Rich DO -Laboratory Work Phone: Start: 05-12-2024 End: 05-12-2024 ambulatory Charo Jake Facility:[facility] Start: 04-10-2024 End: 04-10-2024 ambulatory CHARO [facility] Start: 04-10-2024 End: 04-10-2024 Patient encounter procedure Olga HEDRICK Work Phone: [facility] Comment on above: Allergic contact marcia matitis due to plants, except food (Primary Dx) Start: 10-29-2023 End: 10-29-2023 ambulatory YOJANA SIMMONS DO Facility:[facility] Start: 10-29-2023 End: 10-29-2023 Minor Procedure YOJANA SIMMONS DO [facility] Start: 10-15-2023 End: 10-20-2023 ambulatory CHARO RICH DO Facility:[facility] Start: 10-15-2023 End: 10-19-2023 Outreach Lab CHARO RICH [facility] Start: 07-31-2023 End: 07-31-2023 ambulatory [facility] Work Phone: Start: 07-31-2023 End: 07-31-2023 Patient encounter procedure [facility]-Laboratory Work Phone: Start: 05-13-2023 End: 05-13-2023 Patient encounter procedure Ana Byrnes APRN.STORAGE RECEIPT POSTER Work Phone: OB/Gynecology Comment on above: Encounter for gyneco logical examination (general) (routine) without abnormal findings (Primary Dx) Start: 05-13-2023 End: 05-13-2023 Patient encounter status Ana Byrnes APRN.STORAGE RECEIPT POSTER Work Phone: [facility] Work Phone: Start: 02-27-2023 End: 02-27-2023 ambulatory [facility] Work Phone: Start: 02-27-2023 End: 02-27-2023 Patient encounter procedure [facility]-Outpatient Breast Imaging Work Phone: Start: 05-01-2022 End: 05-01-2022 ambulatory [facility] Work Phone: Start: 05-01-2022 End: 05-01-2022 Patient encounter procedure [facility]-Laboratory Start: 03-08-2022 Refill Sofya Ying MD Work Phone: OB/Gynecology Comment on above: Refill Request Start: 02-27-2022 Patient encounter procedure [facility] Provider [facility] Department Start: 10-03-2021 Non-patient / Non-visit Dr. Michelle Rich Work Phone: [facility] Start: 10-02-2021 End: 10-02-[address] Charo Rich Work Phone: [facility]-Pulmonary Services/Neurology Start: 08-21-2021 Refill Sofya Ying MD Work Phone: OB/Gynecology Comment on above: Refill Request Start: 07-03-2021 End: 07-03-[address] Charo Rich Work Phone: [facility] Procedures Date Procedure Procedure Detail Performing Clinician Start: 07-21-2024 Dual energy X-ray absorptiometry Dr. Charo Rich DO Work Phone: Start: 07-21-2024 Screening mammography Josesito Rich DO Work Phone: Start: 02-27-2023 Screening mammography Start: 09-22-2018 Colonoscopy [facility] EMISSIONS ENGINEER.STORAGE RECEIPT POSTER Work Phone: Start: 09-18-2018 Colonoscopy CHARO KRISHNA DO Augmentation mammoplasty CRISTHIAN RICH DO Small intestine excision CRISTHIAN RICH DO Plan of Treatment Date Care Activity Detail Author Start: 2033 RSV Vaccine (1 - 1-d ose 75+ series) RSV Vaccine (1 - 1-dose 75+ series) [facility] Start: 10-23-2026 Urine microalbumin profile DTaP,Tdap,Td Vaccine (3 - Td or Tdap) [facility] Start: 10-18-2025 HPV TESTING HPV TESTING [facility] Start: 10-18-2025 PAP TESTING PAP TESTING [facility] Start: 07-21-2025 Screening for malign ant neoplasm of breast Mammogram Screening [facility] Start: 05-27-2025 End: 05-27-2025 Patient encounter procedure 05/27/2025 7:00 AM EST Office Visit OB/Gynecology [address] [place] [address] [place], Ana, EMISSIONS ENGINEER.STORAGE RECEIPT POSTER [address] [place] [address] Annual OB/Gynecology Comment on above: Annual Start: 02-28-2025 Influenza vaccination Influenza Vacc ine (#1) [facility] Start: 06-30-2024 Advance Directive Discussion Advance Directive Discussion [facility] Start: 05-20-2024 End: 05-20-2024 Patient encounter procedure 05/20/2024 7:00 AM EST Office Visit OB/Gynecology [address] [facility] [place] [address] Fitz, Ana, EMISSIONS ENGINEER.STORAGE RECEIPT POSTER [address] [facility] [place] [address] Annual OB/Gynecology Comment on above: Annual Start: 02-29-2024 Covid-19 Vaccine ( season) Covid-19 Vaccine ( season) [facility] Start: 02-29-2024 Influenza vaccination Influenza Vacc ine (#1) [facility] Start: 02-28-2024 Mammography Mammogram Screening [facility] Start: 02-28-2024 Screening for malign ant neoplasm of breast Mammogram Screening [facility] Start: 06-30-2023 Advance Directive Discussion Advance Directive Discussion [facility] Start: 2023 Pneumococcal Vaccine : 65+ (2 of 2 - PCV) Pneumococcal Vaccine: 65+ (2 of 2 - PCV) [facility] Start: 2023 Screening for osteoporosis Bone Density Screening [facility] Start: 02-28-2023 Covid-19 Vaccine ( season) Covid-19 Vaccine ( season) [facility] Start: 02-28-2023 Influenza vaccination Influenza Vacc ine (#1) [facility] Start: 06-30-2022 Depression Assessment Depression Ass essment [facility] Start: 02-28-2022 Influenza vaccination INFLUENZA (#1) [facility] Start: 02-28-2021 Influenza vaccination INFLUENZA (#1) [facility] Start: 09-23-2019 Colonoscopy Colonoscopy [facility] Start: 09-23-2019 Colorectal Cancer Screening Colorectal Cancer Screening [facility] Start: 09-23-2019 Screening for malign ant neoplasm of colon [facility] Start: 2018 RSV Vaccine (1 - 1-d ose 60+ series) RSV Vaccine (1 - 1-dose 60+ series) [facility] Start: 05-29-2016 Pneumococcal Vaccine : 50+ (2 of 2 - PCV) Pneumococcal Vaccine: 50+ (2 of 2 - PCV) [facility] Start: 2008 SHINGRIX VACCINE (1 of 2) SHINGRIX V ACCINE (1 of 2) [facility] Start: 2003 COLOGUARD (FIT-DNA) COLOGUARD (FIT-D NA) [facility] Start: 2003 Colonoscopy COLONOSCOPY [facility] Start: 2003 COLORECTAL CANCER SCREENING COLORECTAL CANCER SCREENING [facility] Start: [address] COLONOGRAPHY [facility] Start: 2003 DIABETES SCREEN DIABETES SCREEN [facility] Start: 2003 Diabetes Screening Diabetes Screenin g [facility] Start: 2003 FECAL OCCULT BLOOD FECAL OCCULT BLOO D [facility] Start: 2003 Lipid 1996 panel - S edwardo or Plasma Lipid Screening [facility] Start: 2003 Lipid panel Lipid Screening [facility] Start: 2003 LIPID SCREEN LIPID SCREEN [facility] Start: 2003 Screening for malign ant neoplasm of colon [facility] Start: 2003 SIGMOIDOSCOPY SIGMOIDOSCOPY [facility] Start: 1998 Mammography MAMMOGRAM [facility] Start: 1977 Urine microalbumin profile DTAP,TDAP,TD (1 - Tdap) [facility] Start: 1976 Anxiety Screening Anxiety Screening [facility] Start: 1976 Depression Screening Depression Scre ening [facility] Start: 1976 HEPATITIS C SCREENING HEPATITIS C [facility] Start: 1976 Hepatitis C screening Hepatitis C [facility] Start: 1976 HIV SCREENING HIV SCREENING [facility] Start: 1976 HIV screening HIV Screening [facility] Start: 1970 Adult depression screening assessment DEPRESSION SCREENING [facility] Start: 1963 COVID-19 VACCINE (1) COVID-19 VACCIN E (1) [facility] Start: 1958 COVID-19 VACCINE (#1) COVID-19 VACCI NE (#1) [facility] Immunizations Immunization Date Immunization Notes Care Provider [facility] 05-17-2024 influenza virus vacc ine, unspecified formulation Ana [place] EMISSIONS ENGINEER.STORAGE RECEIPT POSTER Work Phone: [facility] 02-25-2022 zoster vaccine recombinant CHARO JAKE DO [facility] 09-11-2021 SARS-CoV-2 (COVID-19 ) mRNA-1273 vaccine; Translations: [Moderna COVID-19 Vaccine] CHARO RICH DO [facility] 09-08-2021 zoster vaccine recombinant CHARO JAKE DO [facility] 09-08-2021 influenza virus vacc ine, unspecified formulation Ana [place] EMISSIONS ENGINEER.STORAGE RECEIPT POSTER Work Phone: [facility] 12-01-2020 SARS-CoV-2 (COVID-19 ) mRNA-1273 vaccine CHARO JAKE DO [facility] 11-03-2020 SARS-CoV-2 (COVID-19 ) mRNA-1273 vaccine CHARO JAKE DO [facility] 04-11-2020 influenza virus vacc ine, unspecified formulation CHARO RICH DO [facility] 05-04-2019 influenza, injectabl e, quadrivalent, preservative free; Translations: [Fluarix PF Quadrivalent ] CHARO RICH DO [facility] 04-02-2018 influenza virus vacc ine, unspecified formulation CHARO RICH DO [facility] 02-28-2018 influenza virus vacc ine, unspecified formulation CHARO RICH DO [facility] 07-25-2017 influenza virus vacc ine, unspecified formulation CHARO RICH DO [facility] 10-23-2016 tetanus toxoid, redu yessica diphtheria toxoid, and acellular pertussis vaccine, adsorbed CHARO RICH DO [facility] 06-30-2015 pneumococcal polysaccharide vaccine, 23 valent CHARO RICH DO [facility] 06-30-2015 tetanus toxoid, redu yessica diphtheria toxoid, and acellular pertussis vaccine, adsorbed CHARO RICH DO [facility] 05-29-2015 pneumococcal polysaccharide vaccine, 23 valent CHARO RICH DO [facility] 05-29-2015 tetanus toxoid, redu yessica diphtheria toxoid, and acellular pertussis vaccine, adsorbed CHARO RICH DO [facility] Payers Date Payer Category Payer Self-pay [id number] 2024 Private Health Insurance MMO MED ICARE SUPPLEMENT [id number] 2024 Unknown MMO MMO MEDICARE SUPPLEMENT [id number] 2024-Present [phone] [address] [place] [address] Indemnity [id number] 2024 Unknown [id number] 2023 Medicare [id number] 2023 Medicare [id number] 2023 Medicare [id number] 2016 Medicaid [employer] A[employer] MEDICAID [id number] 2016-Present [phone] [address] [place] [address] Medicaid [id number] 2016 Medicaid [id number]. [id number] 2014 Unknown [id number] 1958 Unknown [id number] 2.16.840.1.653787.3.579.2. 627 1958 Unknown [id number] 2.16.840.1.277487.3.579.2. 627 Unknown [id number] Unknown [facility] [id number] Unknown [id number] 2.16.840.1.862852.3.579.2. 462 Unknown [id number] 2.16.840.1.060650.3.579.2. 462 Unknown [id number] 2.16.840.1.601010.3.579.2. 462 Unknown [id number] 2.16.840.1.279526.3.579.2. 462 Unknown [id number] 2.16.840.1.163321.3.579.2. 462 Unknown [id number] 2.16.840.1.370785.3.579.2. 462 Unknown [id number] 2.16.840.1.519753.3.579.2. 462 Unknown [id number] 2.16.840.1.149820.3.579.2. 462 Unknown [id number] 2.16.840.1.397695.3.579.2. 462 Unknown [id number] 2.16.840.1.331994.3.579.2. 462 Unknown [id number] 2.16.840.1.812377.3.579.2. 462 Unknown [id number] 2.16.840.1.985979.3.579.2. 462 Unknown [id number] 2.16.840.1.596548.3.579.2. 462 Unknown [id number] 2.16.840.1.380012.3.579.2. 462 Unknown [id number] 2.16.840.1.953892.3.579.2. 462 Unknown [id number] 2.16.840.1.239078.3.579.2. 462 Unknown [id number] 2.16840.1.142724.3.579.2. 462 Unknown [id number] 2.16.840.1.892778.3.579.2. 462 Unknown [id number] 2.16840.1.488928.3.579.2. 462 Unknown [id number] 2.16840.1.669089.3.579.2. 462 Unknown [id number] 2.16840.1.073694.3.579.2. 462 Unknown [id number] 2.16840.1.013132.3.579.2. 462 Unknown [id number] 2.16840.1.617074.3.579.2. 462 Unknown [id number] 2.840.1.919667.3.579.2. 462 Social History Date Type Detail Facility Start: 03-21-2018 End: 04-10-2024 Tobacco smoking status NHIS Ex-smoker [facility] Start: 08-11-1991 End: 08-11-1995 History of tobacco use Current smoker [facility] Start: 08-11-1991 End: 08-11-1995 History of tobacco use Cigarette Smoker [facility] Start: 10-18-2020 End: 07-23-2024 Alcohol intake Current non-drinker of alcohol (finding) [facility] Start: 1960 Sex Assigned At Female [facility] Start: 07-03-2021 End: 07-03-2021 Tobacco smoking status [facility] Unknown if ever smoked [facility] Start: 03-21-2018 End: 05-13-2023 Cigarettes smoked current (pack per day) - Reported 0.5 [facility] Start: 03-21-2018 End: 04-10-2024 Tobacco use and exposure Smokeless tobacco non-user [facility] Start: 08-06-2015 None [facility] Start: 08-06-2015 Spouse/ Signif icant Other [facility] Start: 08-06-2015 Non-smoker [facility] Start: 05-13-2023 End: 05-20-2024 Tobacco use panel [facility] Start: 08-06-2015 National Score (1-100), lower number is lower risk 55 [facility] Start: 05-13-2023 Education 13 [facility] Start: 08-16-2021 Gender identity Identifies as female gender (finding) [facility] Start: 08-16-2021 Sexual orientation Heterosexual (fin ding) [facility] Sex Assigned At Sex [facility] Start: 09-03-2024 Sex Female (finding) [facility] NEGATED: Highlighted rowStart: NINF History of tobacco use Passive smoker [facility] Work Phone: Functional Status Date Assessment Result Facility 10-29-2023 Functional Status Repositions self [facility] 10-29-2023 Functional Status confirmed [facility] Mental Status Date Assessment Result Facility 10-29-2023 Mental Status Oriented x 4 [facility] 10-29-2023 Mental Status [facility] Clinical Notes 08-21-2021 to 03-02-2025 Telephone Encounter - Christina Alex RN - 02/10/2025 12:09 PM EDTTelephone Encounter - Christina Alex RN - 02/10/2025 12:09 PM EDTTelephone Encounter - Christina Alex RN - 02/08/2025 2:59 PM EDT Note Date & Type Note Facility 03-02-2025 Note [facility] Medical Records Department [address] [place] [address] History Physical Exam 03/02/25 1046 MR#: [id number] Acct: [id number] Name: AZALEA EDWARDS Rep #: [id number] : 1960 64 From: Bobby Arce MD PCP: BRADY ORTEGA Status:REG [facility] Location: [place] [address] HPI - General HPI Narrative AZALEA EDWARDS, is a 64 F who presents for right shoulder arthroscopy, subacromial decompression, rotator cuff repair, decompression of the infraspinatus cyst and possible biceps tenodesis. No changes to history and physical exam. Right shoulder marked. Risks alternatives benefits discussed as well as postoperative instructions and narcotic counseling. The patient understood wished to proceed no further questions or concerns. MR#: [id number] Acct: [id number] Name: AZALEA EDWARDS Rep #: [id number] : 1960 Provider: Dr. Bobby Arce MD Age/Sex: 64/F Location: [facility] Status: Signed Intake Vital Signs 01/28/2508:57 02/10/2514:19 Height 5 ft 5 ft Weight: 137 lb BMI 26.7 Intake Visit Reasons: RIGHT SHOULDER Chief Complaint: Right shoulder surgery Accompanied by: Is patient in pain?: Yes Pain scale (1-10): 2 Allergies No Known Allergies Allergy (Verified 02/10/25 14:20) Medications ???Medication ???Instructions ???Recorded ???Confirmed ???Type conjugated estrogens 0.625 mg/gram 0.625 applicatio topical QWEEK 11/30/18 02/10/25 H istory vaginal cream (Premarin) calcium carbonate 500 mg PO QDAY 01/27/25 02/10/25 History cranberry 500 mg capsule 500 mg PO QDAY 01/27/25 02/10/25 History duloxetine 60 mg capsule,delayed 60 mg PO DAILY Anxiety 01/27/25 02/10/25 History release sprinkle multivitamin 1 tab PO QDAY 01/27/25 02/10/25 History yg-zev-ljkzh 120 mcg-biotin 1,250 cap PO 01/27/25 02/10/25 History mcg-K1 60 avt-ptvzaogr-cfvq capsule (Hair, Skin And Nails (Herbs)) turmeric 400 mg capsule 500 mg PO DAILY 01/27/25 02/10/25 History Have you fallen in the past year?: No PFSH Medical History Right rotator cuff tear Left shoulder pain Right shoulder pain Anxiety Surgical History partial intestine removal History of intestinal surgery Hx of breast implants, bilateral Family History Mother HypertensionFather COPD (chronic obstructive pulmonary disease) Social History Smoking Status: Former smoker how long ago did patient quit smokin alcohol intake: never what type of physical activity do you participate in: walking and running HPI RIGHT SHOULDER Details: This documentation accurately reflects the service provided and the decisions made by me, Dr. Bobby Arce MD 02/10/25 [id number]. Part of today???s visit was documented by [ ], acting as scribe. AZALEA EDWARDS is a 64 year old F here today for FU R shoulder pain, cuff tear. pain better with stopping pickle ball. Supplemental Info [facility] Imaging Services [address] [place] [address] [id number] Upper Ext Joint Only(Routine) MR#: [id number] Acct: [id number] Name: AZALEA EDWARDS Rep #: [id number] : 1960 F 64 From: Gayle Bennett MD PCP: BRADY ORTEGA Status: REG CLI Study: Upper Ext Joint Only(Routine) Date of Exam: 01/28/25 Exam# [id number] Ordering Dr: Bobby Arce MD PROCEDURE: UPPER EXT JOINT ONLY(ROUTINE) 01/28/2025 REASON FOR EXAM: PAIN TECHNIQUE: UPPER EXT JOINT ONLY(ROUTINE) Multiplanar and multisequence images were obtained without IV contrast administration. MRI RIGHT SHOULDER. COMPARISON: RADIOGRAPHS ON 01/27/2025. FINDINGS: Type III acromion. Degenerative joint disease of the acromioclavicular joint. Findings are demonstrated by joint space narrowing, osteophyte formation and degenerative periarticular bone marrow changes. Narrowing of the supraspinatus outlet and impingement on its myotendinous junction. High-grade almost complete tear of the insertional fibers of the supraspinatus tendon. 1.4 cm proximal retraction of the ruptured tendon fibers. Tendinosis with mild partial thickness tear of the insertional fibers of the infraspinatus tendon. Associated 1.42 cm intramuscular synovial/ganglion cyst adjacent to the myotendinous junction. Tendinosis with mild partial thickness t (more content not included)... [facility] 02-10-2025 Telephone encounter Note Form faxed to [facility] pharmacy. Christina Alex RN [facility] 02-10-2025 Miscellaneous Notes Form faxed to [facility] pharmacy. Christina Alex RN I believe Ana sent this earlier today. Ana Byrnes APRN.CNP Compounded Rx form to provider. Patient would like a [employer] message when order is faxed to [facility]. Patient states she ran it through [facility] and it was still more than $400. Patient would like the medication compounded through [facility] pharmacy. Compounding form to RM to fill out. Christina Alex RN She can still have the pharmacy run it through [facility], it should only be around $50. The other option is to have it compounded at [facility] retail pharmacy and it would be about $40 per tube. Ana Byrnes APRN.CNP Pt states she was prescribed Premarin in the past & had different insurance that covered the cost; However, now is on Medicare and unable to use a coupon; Therefore, asking if there an alternative to Premarin? If not an alternative, can Pt order from [facility]? Pt just does not want to pay $400 for one tube. Please advise. Akil Rice RN documented in this encounter [facility] 02-10-2025 Telephone encounter Note I believe Ana sent this earlier today. Ana Byrnes APRN.CNP [facility] 02-10-2025 Telephone encounter Note Compounded Rx form to provider. Patient would like a [employer] message when order is faxed to [facility]. [facility] 02-08-2025 Telephone encounter Note Patient states she ran it through [facility] and it was still more than $400. Patient would like the medication compounded through [facility] pharmacy. Compounding form to RM to fill out. Christina Alex RN [facility] 02-08-2025 Telephone encounter Note She can still have the pharmacy run it through [facility], it should only be around $50. The other option is to have it compounded at [facility] retail pharmacy and it would be about $40 per tube. Ana Byrnes APRN.CNP [facility] 02-08-2025 Telephone encounter Note Pt states she was prescribed Premarin in the past & had different insurance that covered the cost; However, now is on Medicare and unable to use a coupon; Therefore, asking if there an alternative to Premarin? If not an alternative, can Pt order from [facility]? Pt just does not want to pay $400 for one tube. Please advise. Akil Rice RN [facility] 07-23-2024 Miscellaneous Notes Pt notified and voiced understanding. Akil Rice RN Please let the pt know that her bone scan shows osteopenia, which is slight decrease in the bone density. I recommend taking Calcium 1200 mg and Vitamin D 1000 units daily, along with doing weight bearing exercises to help slow the loss of bone mass. We will repeat the scan in 2 yrs Ana Remy APRN.CNP documented in this encounter [facility] 07-23-2024 Telephone encounter Note Pt notified and voiced understanding. Akil Rice RN [facility] 07-23-2024 Telephone encounter Note Please let the pt know that her bone scan shows osteopenia, which is slight decrease in the bone density. I recommend taking Calcium 1200 mg and Vitamin D 1000 units daily, along with doing weight bearing exercises to help slow the loss of bone mass. We will repeat the scan in 2 yrs Ana Remy APRN.CNP [facility] 05-20-2024 Note HNO ID: [id number] Author: ANA BYRNES APRN.CNP Service: ? 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 Azalea is a 63 year old who presents for an annual gynecologic exam without complaints. Postmenopausal: Yes HRT use: Yes, vaginal estrogen Last Pap: 10/23/2020 normal HPV: 10/20/2020 negative History of abnormal pap: No Last mammogram: 2023 schedule for [facility] History of abnormal mammogram: No Sexually active: Yes Pain with intercourse: No Postcoital bleeding: No OB History T0 L0 SAB0 IAB0 Ectopic0 Multiple0 Live Births0 Comment: 5 step children Clipping Marker History LMP: Postmenopausal Age at Menarche: Age at First : Age at Menopause: Clipping Marker History Comments: Sexual Activity: Yes; Male Contraception: No contraception data on record PAST MEDICAL HISTORY Diagnosis Date Hyperlipidemia PAST SURGICAL HISTORY Procedure Laterality Date PAST SURGICAL HISTORY OF 2013 [facility] FAMILY HISTORY Problem Relation Age of Onset Hypertension Mother Stroke Mother Lipids Sister COPD Sister Hypertension Sister Diabetes Brother Obesity Brother Hypertension Brother SOCIAL HISTORY Social History Tobacco Use Smoking status: Former Current packs/day: 0.00 Average packs/day: 0.5 packs/day for 4.0 years (2.0 ttl pk-yrs) Types: Cigarettes Start date: 08/11/1991 Quit date: 08/11/1995 Years since quittin.7 Passive exposure: Never Smokeless tobacco: Never Vaping Use Vaping status: Never Used Substance Use Topics Alcohol use: No Drug use: Never REVIEW OF SYSTEMS Abdomen: No abdominal pain, nausea, vomiting, diarrhea, or constipation. No bloating, early satiety, indigestion, or increased flatulence. Bladder: No dysuria, gross hematuria, urinary frequency, urinary urgency, or incontinence Breast: No breast lumps, nipple d/c, overlying skin changes, redness or skin retraction Allergies and current medication updated:Yes SENSITIVE EXAM: The sensitive examination was discussed with the Patient or Patient's Authorized On Call Pharmacy Technician. As applicable, any other physician, advance practice provider, medical student, or other health professional student that will be observing or involved in the sensitive examination for educational or training purposes was discussed with the Patient or Authorized On Call Pharmacy Technician. The Patient or Authorized On Call Pharmacy Technician has agreed to proceed with the sensitive examination. (Sensitive examination includes inspection and/or palpation of the breasts, pelvis, prostate and anorectal regions). EXAM: BP 136/82 Ht 5' .5 (1.54m) Wt 140 lb (63.5kg) BMI 26.88 kg/(m2). GENERAL: pleasant, female in no apparent distress HEENT: Normocephalic, atraumatic, mucus membranes moist, and no lesions DERMATOLOGY: Normal, without lesions, non-icteric, and non-hirsute BREAST: soft, non-tender, symmetric, no dominant mass, normal nipple-areolar complex, no lymphadenopathy, and no nipple discharge CHEST: Normal inspiratory effort ABDOMEN: soft, non-tender, and no masses PELVIC: external genitalia normal, normal Bartholin's glands, urethra, Crum's glands, no vulvar lesions, no cervical lesions, good vaginal support, physiologic discharge present, normal appearing perineal body and perianal region BIMANUAL: uterus normal size, shape and consistency, no adnexal masses, and non-tender RECTOVAGINAL: deferred. NEURO: alert and oriented x3,exam grossly non-focal EXTREMITIES: normal ASSESSMENT/PLAN: 1) Health maintenance: Pap/HPV up to date. Mammogram due May 2024 Nutrition, exercise and routine health maintenance exams reviewed. Calcium/Vitamin D supplementation information provided. 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 Azalea is a 63 year old who presents for an annual gynecologic exam without complaints. Postmenopausal: Yes HRT use: Yes, vaginal estrogen Last Pap: 10/23/2020 normal HPV: 10/20/2020 negative History of abnormal pap: No Last mammogram: [facility] History of abnormal mammogram: No Sexually active: Yes Pain with intercourse: No Postcoital bleeding: No OB History T0 L0 SAB0 IAB0 Ectopic0 Multiple0 Live Births0 Comment: 5 step children Clipping Marker History LMP: Postmenopausal Age at Menarche: Age at First : Age at Menopause: Clipping Marker History Comments: Sexual Activity: Yes; Male Contraception: No contraception data on record PAST MEDICAL HISTORY Diagnosis Date Hyperlipidemia PAST SURGICAL HISTORY Procedure Laterality Date PAST SURGICAL HISTORY OF 2013 SBO FAMILY HISTORY Problem Relation Age of Onset Hypertension Mother Stroke Mother Lipids Sister COPD Sister Hypertension Sister Diabetes Brother Obesity Brother Hypertension Brother SOCIAL HISTORY Social History Tobacco Use Smoking status: Former Current packs/day: 0.00 Average packs/day: 0.5 packs/day for 4.0 years (2.0 ttl pk-yrs) Types: Cigarettes Start date: 08/11/1991 Quit date: 08/11/1995 Years since quittin.7 Passive exposure: Never Smokeless tobacco: Never Vaping Use Vaping status: Never Used Substance Use Topics Alcohol use: No Drug use: Never REVIEW OF SYSTEMS Abdomen: No abdominal pain, nausea, vomiting, diarrhea, or constipation. No bloating, early satiety, indigestion, or increased flatulence. Bladder: No dysuria, gross hematuria, urinary frequency, urinary urgency, or incontinence Breast: No breast lumps, nipple d/c, overlying skin changes, redness or skin retraction Allergies and current medication updated:Yes SENSITIVE EXAM: The sensitive examination was discussed with the Patient or Patient's Authorized On Call Pharmacy Technician. As applicable, any other physician, advance practice provider, medical student, or other health professional student that will be observing or involved in the sensitive examination for educational or training purposes was discussed with the Patient or Authorized On Call Pharmacy Technician. The Patient or Authorized On Call Pharmacy Technician has agreed to proceed with the sensitive examination. (Sensitive examination includes inspection and/or palpation of the breasts, pelvis, prostate and anorectal regions). EXAM: BP 136/82 Ht 5' .5 (1.54m) Wt 140 lb (63.5kg) BMI 26.88 kg/(m^2). GENERAL: pleasant, female in no apparent distress HEENT: Normocephalic, atraumatic, mucus membranes moist, and no lesions DERMATOLOGY: Normal, without lesions, non-icteric, and non-hirsute BREAST: soft, non-tender, symmetric, no dominant mass, normal nipple-areolar complex, no lymphadenopathy, and no nipple discharge CHEST: Normal inspiratory effort ABDOMEN: soft, non-tender, and no masses PELVIC: external genitalia normal, normal Bartholin's glands, urethra, Crum's glands, no vulvar lesions, no cervical lesions, good vaginal support, physiologic discharge present, normal appearing perineal body and perianal region BIMANUAL: uterus normal size, shape and consistency, no adnexal masses, and non-tender RECTOVAGINAL: deferred. NEURO: alert and oriented x3,exam grossly non-focal EXTREMITIES: normal ASSESSMENT/PLAN: 1) Health maintenance: Pap/HPV up to date. Mammogram due May 2024 Nutrition, exercise and routine health maintenance exams reviewed. Calcium/Vitamin D supplementation information provided. Colon cancer screening: up to date with screening 2023 BMD: schedule for May 2024 2) Follow up one year or sooner as needed Ana Byrnes APRN.[employer] RECEIPT POSTER documented in this encounter [facility] 04-10-2024 Note HNO ID: [id number] Author: OLGA HECK PA Service: ? Author Type: Physician Regional Vice President Life Sales Type: Progress Notes Filed: 04/10/2024 13:16 Note Text: This note was created using Purpleriter. Subjective Azalea Edwards is a 63 year old female. HPI 63-year-old female presents for rash. Patient states that she noticed a rash on her right arm after working out in the garden last week. She states the rash is now spread to her side. She has been using calamine lotion with some improvement, but states rash is very itchy. No fevers. No difficulty breathing or swelling. No new lotions, detergents, body washes, medication. No other complaint. PAST MEDICAL HISTORY Diagnosis Date Hyperlipidemia PAST SURGICAL HISTORY Procedure Laterality Date PAST SURGICAL HISTORY OF 2013 SBO ALLERGIES Patient has no known allergies. MEDICATIONS DULoxetine (CYMBALTA) 60 mg capsule Take 60 mg by mouth. conjugated estrogens (PREMARIN) vaginal cream Apply 1 gram to vagina 2-3 times weekly. clobetasol (TEMOVATE) 0.05 % ointment Apply 1 application to affected area twice daily. For 4 weeks then use once weekly for maintenance calcium carbonate (CALCIUM 500 ORAL) Take by mouth. TURMERIC ORAL Take by mouth. MULTI-VITAMIN ORAL Take by mouth. cranberry fruit extract (CRANBERRY CONCENTRATE ORAL) Take 850 mg by mouth. biotin 5 mg tab Take 5 mg by mouth once daily. predniSONE (DELTASONE) 10 mg tablet Take 4 tabs daily for 3 days, then 2 tabs daily for 3 days, then 1 tab daily for 3 days with food. FAMILY HISTORY Problem Relation Age of Onset Hypertension Mother Stroke Mother Lipids Sister COPD Sister Hypertension Sister Diabetes Brother Obesity Brother Hypertension Brother Social History Tobacco Use Smoking status: Former Current packs/day: 0.00 Average packs/day: 0.5 packs/day for 4.0 years (2.0 ttl pk-yrs) Types: Cigarettes Start date: 08/11/1991 Quit date: 08/11/1995 Years since quittin.6 Passive exposure: Never Smokeless tobacco: Never Vaping Use Vaping status: Never Used Substance Use Topics Alcohol use: No Drug use: Never Review of Systems Constitutional: Negative for chills and fever. HENT: Negative for congestion, ear pain and sore throat. Respiratory: Negative for cough and shortness of breath. Cardiovascular: Negative for chest pain. Gastrointestinal: Negative for diarrhea and vomiting. Skin: Positive for rash. Objective BP 128/62 Pulse 74 Temp 36.4 ?C (97.6 ?F) Resp 16 Wt 62.8 kg (138 lb 7.2 oz) SpO2 95% BMI 27.04 kg/m? Physical Exam Vitals and nursing note reviewed. Constitutional: General: She is not in acute distress. Appearance: Normal appearance. She is not toxic-appearing. HENT: Nose: Nose normal. Mouth/Throat: Mouth: Mucous membranes are moist. Eyes: Conjunctiva/sclera: Conjunctivae normal. Cardiovascular: Rate and Rhythm: Normal rate and regular rhythm. Pulmonary: Effort: Pulmonary effort is normal. Breath sounds: Normal breath sounds. Skin: General: Skin is warm and dry. Findings: Rash present. Comments: Vesicular linear rash with erythema noted to right arm and right flank. Patient reports it is pruritic. No drainage. No fluctuance. No abscess. Appears consistent with a contact dermatitis Neurological: Mental Status: She is alert. Assessment and Plan ASSESSMENT/PLAN: 1. Allergic contact dermatitis due to plants, except food - ICD9: 692.6, ICD10: L23.7 - Oral Steriod tx -Prednisone taper - discussed skin care of rash - follow up if symptoms persist or worsen. Diagnosis and treatment plan were discussed and questions were answered to the patient's satisfaction. Pt acknowledged understanding of concepts and follow up plan. Specific signs and symptoms that would indicate the need for higher level of care were discussed in detail warranting prompt ER evaluation. RYLEY Gotti [facility] 04-10-2024 History of Presen t illness Narrative Images from the original note were not included. This note was created using [email or web address]. Subjective Azalea Edwards is a 63 year old female. HPI 63-year-old female presents for rash. Patient states that she noticed a rash on her right arm after working out in the garden last week. She states the rash is now spread to her side. She has been using calamine lotion with some improvement, but states rash is very itchy. No fevers. No difficulty breathing or swelling. No new lotions, detergents, body washes, medication. No other complaint. PAST MEDICAL HISTORY Diagnosis Date Hyperlipidemia PAST SURGICAL HISTORY Procedure Laterality Date PAST SURGICAL HISTORY OF 2013 SBO ALLERGIES Patient has no known allergies. MEDICATIONS DULoxetine (CYMBALTA) 60 mg capsule Take 60 mg by mouth. conjugated estrogens (PREMARIN) vaginal cream Apply 1 gram to vagina 2-3 times weekly. clobetasol (TEMOVATE) 0.05 % ointment Apply 1 application to affected area twice daily. For 4 weeks then use once weekly for maintenance calcium carbonate (CALCIUM 500 ORAL) Take by mouth. TURMERIC ORAL Take by mouth. MULTI-VITAMIN ORAL Take by mouth. cranberry fruit extract (CRANBERRY CONCENTRATE ORAL) Take 850 mg by mouth. biotin 5 mg tab Take 5 mg by mouth once daily. predniSONE (DELTASONE) 10 mg tablet Take 4 tabs daily for 3 days, then 2 tabs daily for 3 days, then 1 tab daily for 3 days with food. FAMILY HISTORY Problem Relation Age of Onset Hypertension Mother Stroke Mother Lipids Sister COPD Sister Hypertension Sister Diabetes Brother Obesity Brother Hypertension Brother Social History Tobacco Use Smoking status: Former Current packs/day: 0.00 Average packs/day: 0.5 packs/day for 4.0 years (2.0 ttl pk-yrs) Types: Cigarettes Start date: 08/11/1991 Quit date: 08/11/1995 Years since quittin.6 Passive exposure: Never Smokeless tobacco: Never Vaping Use Vaping status: Never Used Substance Use Topics Alcohol use: No Drug use: Never Review of Systems Constitutional: Negative for chills and fever. HENT: Negative for congestion, ear pain and sore throat. Respiratory: Negative for cough and shortness of breath. Cardiovascular: Negative for chest pain. Gastrointestinal: Negative for diarrhea and vomiting. Skin: Positive for rash. Objective BP 128/62 Pulse 74 Temp 36.4 C (97.6 F) Resp 16 Wt 62.8 kg (138 lb 7.2 oz) SpO2 95% BMI 27.04 kg/m Physical Exam Vitals and nursing note reviewed. Constitutional: General: She is not in acute distress. Appearance: Normal appearance. She is not toxic-appearing. HENT: Nose: Nose normal. Mouth/Throat: Mouth: Mucous membranes are moist. Eyes: Conjunctiva/sclera: Conjunctivae normal. Cardiovascular: Rate and Rhythm: Normal rate and regular rhythm. Pulmonary: Effort: Pulmonary effort is normal. Breath sounds: Normal breath sounds. Skin: General: Skin is warm and dry. Findings: Rash present. Comments: Vesicular linear rash with erythema noted to right arm and right flank. Patient reports it is pruritic. No drainage. No fluctuance. No abscess. Appears consistent with a contact dermatitis Neurological: Mental Status: She is alert. Assessment and Plan ASSESSMENT/PLAN: 1. Allergic contact dermatitis due to plants, except food - ICD9: 692.6, ICD10: L23.7 - Oral Steriod tx -Prednisone taper - discussed skin care of rash - follow up if symptoms persist or worsen. Diagnosis and treatment plan were discussed and questions were answered to the patient's satisfaction. Pt acknowledged understanding of concepts and follow up plan. Specific signs and symptoms that would indicate the need for higher level of care were discussed in detail warranting prompt ER evaluation. RYLEY Gotti documented in this encounter [facility] 10-29-2023 Evaluation + Plan note Extrac juliann from: Title:Clinical Document Author:YOJANA SIMMONS DO Josesito ate:10/29/23 [facility] ADMISSION HISTORY AN D PHYSICIAL CHIEF COMPLAINT: Colorectal cancer screening HISTORY OF PRESENT ILLNESS: Colorectal cancer screening, history of colon polyps, last colonoscopy 2018 REVIEW OF SYSTEMS: Constitutional: denies weight loss Cardiovascular:denies chest pain, palpitations Respiratory:denies shortness of breath Gastrointestinal:no abd pain Musculoskeletal: no arthralgias Skin: no rashes ACTIVE PROBLEMS: (9) Adenomatous polyp of colon (7169659503) Anxiety (963486670) Atrophic vaginitis (07358675) Breast cancer screening by mammogram (248571026) Depressive disorder (97502933) History of COVID-19 (9553129173) Menopausal state (932701971) Tobacco use (1613323197) Well adult exam (996220989) MEDICATIONS: Active Inpt Meds: None Active PRN Meds: None One Time Meds: None Active IV Meds: None ALLERGIES: (1) NKA FAMILY HISTORY: SOCIAL HISTORY: PHYSICAL EXAM: VITALS: No Data Available 24 Hr Tmax: No Data Available 36 Hr Tmax: No Data Available Vital Signs are the last 5 in the past 48 hours. Weights display the last 5 within 7 days. Initial Wt: No Data Available Current Wt: No Data Available physical exam alert and oriented cardio; regular without murmur pulm; clear abd; soft, nontender LABS: No 36hr Lab Data DIAGNOSTICS: IMPRESSION: Colorectal cancer screening (high risk), personal history of colon polyps PLAN: Proceed with colonoscopy as discussed in the office Future Appointments Appointment Date:11/12/2023 10:00:00 AM Scheduled Provider:CHARO RICH DO Location[facility] Appointment Type:[facility] 05-01-2024 Hospital Discharge instructions Patient Education 10/29/2023 09:05:10 Monitored Anesthesia Care, Care After Monitored Anesthesia Care, Care After These instructions provide you with information about caring for yourself after your procedure. Your health care provider may also give you more specific instructions. Your treatment has been plannedaccording to current medical practices, but problems sometimes occur. Call your health care provider if you have any problems or questions after your procedure. What can I expect after the procedure? After your procedure, you may: Feel sleepy for several hours. Feel clumsy and have poor balance for several hours. Feel forgetful about what happened after the procedure. Have poor judgment for several hours. Feel nauseous or vomit. Have a sore throat if you had a breathing tube during the procedure. Follow these instructions at home: For at least 24 hours after the procedure: Have a responsible adult stay with you. It is important to have someone help care for you until youare awake and alert. Rest as needed. Do not: ?Participate in activities in which you could fall or become injured. ?Drive. ?Use heavy machinery. ?Drink alcohol. ?Take sleeping pills or medicines that cause drowsiness. ?Make important decisions or sign legal documents. ?Take care of children on your own. Eating and drinking Follow the diet that is recommended by your health care provider. If you vomit, drink water, juice, or soup when you can drink without vomiting. Make sure you have little or no nausea before eating solid foods. General instructions Take nhdn-adf-nrwaten and prescription medicines only as told by your health care provider. If you have sleep apnea, surgery and certain medicines can increase your risk for breathing problems. Follow instructions from your health care provider about wearing your sleep device: ?Anytime you are sleeping, including during daytime naps. ?While taking prescription pain medicines, sleeping medicines, or medicines that make you drowsy. If you smoke, do not smoke without supervision. Keep all follow-up visits as told by your health care provider. This is important. Contact a health care provider if: You keep feeling nauseous or you keep vomiting. You feel light-headed. You develop a rash. You have a fever. Get help right away if: You have trouble breathing. Summary For several hours after your procedure, you may feel sleepy and have poor judgment. Have a responsible adult stay with you for at least 24 hours or until you are awake and alert. This information is not intended to replace advice given to you by your health care provider. Make sure you discuss any questions you have with your health care provider. Document Released: 10/06/2016 Document Revised: 09/14/2018 Document Reviewed: 10/06/2016 [employer] Patient Education 2020 [employer] 10/29/2023 09:03:28 Colonoscopy, Adult Colonoscopy, Adult A colonoscopy is an exam to look at the entire large intestine. During the exam, a lubricated, flexible tube that has a camera on the end of it is inserted into the anus and then passed into the rectum, colon, and other parts of the large intestine. You may have a colonoscopy as a part of normal colorectal screening or if you have certain symptoms, such as: Lack of red blood cells (anemia). Diarrhea that does not go away. Abdominal pain. Blood in your stool (feces). A colonoscopy can help screen for and diagnose medical problems, including: Tumors. Polyps. Inflammation. Areas of bleeding. Tell a health care provider about: Any allergies you have. All medicines you are taking, including vitamins, herbs, eye drops, creams, and cgxn-oao-multpqf medicines. Any problems you or family members have had with anesthetic medicines. Any blood disorders you have. Any surgeries you have had. Any medical conditions you have. Any problems you have had passing stool. What are the risks? Generally, this is a safe procedure. However, problems may occur, including: Bleeding. A tear in the intestine. A reaction to medicines given during the exam. Infection (rare). What happens before the procedure? Eating and drinking restrictions Follow instructions from your health care provider about eating and drinking, which may include: A few days before the procedure follow a low-fiber diet. Avoid nuts, seeds, dried fruit, raw fruits, and vegetables. 1 3 days before the procedure follow a clear liquid diet. Drink only clear liquids, such as clear broth or bouillon, black coffee or tea, clear juice, clear soft drinks or sports drinks, gelatin dessert, and popsicles. Avoid any liquids that contain red or purple dye. On the day of the procedure do not eat or drink anything starting 2 hours before the procedure, or within the time period that your health care provider recommends. Up to 2 hours before the procedure, you may continue to drink clear liquids, such as water or clear fruit juice. Bowel prep If you were prescribed an oral bowel prep to clean out your colon: Take it as told by your health care provider. Starting the day before your procedure, you will needto drink a large amount of medicated liquid. The liquid will cause you to have multiple loose stools until your stool is almost clear or light green. If your skin or anus gets irritated from diarrhea, you may use these to relieve the irritation: ?Medicated wipes, such as adult wet wipes with aloe and vitamin E. ?A skin-soothing product like petroleum jelly. If you vomit while drinking the bowel prep, take a break for up to 60 minutes and then begin the bowel prep again. If vomiting continues and you cannot take the bowel prep without vomiting, call yourhealth care provider. To clean out your colon, you may also be given: ?Laxative medicines. ?Instructions about how to use an enema. General instructions Ask your health care provider about: ?Changing or stopping your regular medicines or supplements. This is especially important if you are taking iron supplements, diabetes medicines, or blood thinners. ?Taking medicines such as aspirin and ibuprofen. These medicines can thin your blood. Do not take these medicines before the procedure if your health care provider tells you not to. Plan to have someone take you home from the hospital or clinic. What happens during the procedure? An IV may be inserted into one of your veins. You will be given medicine to help you relax (sedative). To reduce your risk of infection: ?Your health care team will wash or sanitize their hands. ?Your anal area will be washed with soap. You will be asked to lie on your side with your knees bent. Your health care provider will lubricate a long, thin, flexible tube. The tube will have a camera and a light on the end. The tube will be inserted into your anus. The tube will be gently eased through your rectum and colon. Air will be delivered into your colon to keep it open. You may feel some pressure or cramping. The camera will be used to take images during the procedure. A small tissue sample may be removed to be examined under a microscope (biopsy). If small polyps are found, your health care provider may remove them and have them checked for cancer cells. When the exam is done, the tube will be removed. The procedure may vary among health care providers and hospitals. What happens after the procedure? Your blood pressure, heart rate, breathing rate, and blood oxygen level will be monitored until themedicines you were given have worn off. Do not drive for 24 hours after the exam. You may have a small amount of blood in your stool. You may pass gas and have mild abdominal cramping or bloating due to the air that was used to inflate your colon during the exam. It is up to you to get the results of your procedure. Ask your health care provider, or the department performing the procedure, when your results will be ready. Summary A colonoscopy is an exam to look at the entire large intestine. During a colonoscopy, a lubricated, flexible tube with a camera on the end of it is inserted into the anus and then passed into the colon and other parts of the large intestine. Follow instructions from your health care provider about eating and drinking before the procedure. If you were prescribed an oral bowel prep to clean out your colon, take it as told by your health care provider. After your procedure, your blood pressure, heart rate, breathing rate, and blood oxygen level will be monitored until the medicines you were given have worn off. This information is not intended to replace advice given to you by your health care provider. Make sure you discuss any questions you have with your health care provider. Document Released: 06/13/2001 Document Revised: 04/08/2018 Document Reviewed: 08/27/2016 [employer] Patient Education 2020 [employer]. Follow Up Care 10/09/2023 10:11:37 With:CHARO RICH DO Address: [address] [place] [phone] When: Unknown [facility] 05-01-2024 Summary of episode note Discharge Instructions Thank you for allowing [facility] to assist you with your healthcare needs. The following is importantdischarge information regarding your hospital visit. Your Care Team CHARO RICH DO What to do next Instructions From Your Doctor Colonoscopy 5 years Scheduled Follow-Up Appointments Appointment Type When With Where Contact InformationPC OV 11/12/2023 10:00 AM EDT CHARO RICH DO [facility]ments Follow Up with CHARO RICH DO When Where: [address] [place] [phone] Allergies NKA Medications Please ask your primary doctor or pharmacist before taking any other medication not listed, including over the counter drugs, herbal medications, vitamins and or supplements as they may interact withyour home medications. What How Much When Why Instructions Last Dose Unchanged biotin Once a day ONE DAILY Unchanged calcium carbonate (calcium (as carbonate) 600 mg oral tablet) 2 tab(s) by mouth Once a day Unchanged conjugated estrogens topical (Premarin 0.625 mg/ g vaginal cream with applicator) Unchanged DULoxetine (DULoxetine 60 mg oral delayed release capsule) 1 cap by mouth Once a day Depressive disorder Duration: 100 Days Unchanged herbal/ nutritional product (cranberry oral capsule) ONE DAILY Unchanged multivitamin (Multiple Vitamins oral capsule) 1 cap by mouth Every day Please take this list to your next doctor s visit. Bring all medications you take, including over the counter medications, herbals and other supplements with you to your doctor s visit. Patients and families are reminded to discard old lists and to update any records with all medication providers or retail pharmacies. Education Materials Monitored Anesthesia Care, Care After These instructions provide you with information about caring for yourself after your procedure. Your health care provider may also give you more specific instructions. Your treatment has been plannedaccording to current medical practices, but problems sometimes occur. Call your health care provider if you have any problems or questions after your procedure. What can I expect after the procedure? After your procedure, you may: Feel sleepy for several hours. Feel clumsy and have poor balance for several hours. Feel forgetful about what happened after the procedure. Have poor judgment for several hours. Feel nauseous or vomit. Have a sore throat if you had a breathing tube during the procedure. Follow these instructions at home: For at least 24 hours after the procedure: Have a responsible adult stay with you. It is important to have someone help care for you until youare awake and alert. Rest as needed. Do not: ? Participate in activities in which you could fall or become injured. ? Drive. ? Use heavy machinery. ? Drink alcohol. ? Take sleeping pills or medicines that cause drowsiness. ? Make important decisions or sign legal documents. ? Take care of children on your own. Eating and drinking Follow the diet that is recommended by your health care provider. If you vomit, drink water, juice, or soup when you can drink without vomiting. Make sure you have little or no nausea before eating solid foods. General instructions Take strz-wji-wiqmnvm and prescription medicines only as told by your health care provider. If you have sleep apnea, surgery and certain medicines can increase your risk for breathing problems. Follow instructions from your health care provider about wearing your sleep device: ? Anytime you are sleeping, including during daytime naps. ? While taking prescription pain medicines, sleeping medicines, or medicines that make you drowsy. If you smoke, do not smoke without supervision. Keep all follow-up visits as told by your health care provider. This is important. Contact a health care provider if: You keep feeling nauseous or you keep vomiting. You feel light-headed. You develop a rash. You have a fever. Get help right away if: You have trouble breathing. Summary For several hours after your procedure, you may feel sleepy and have poor judgment. Have a responsible adult stay with you for at least 24 hours or until you are awake and alert. This information is not intended to replace advice given to you by your health care provider. Make sure you discuss any questions you have with your health care provider. Document Released: 10/06/2016 Document Revised: 09/14/2018 Document Reviewed: 10/06/2016 [employer] Patient Education 2020 [employer] Colonoscopy, Adult A colonoscopy is an exam to look at the entire large intestine. During the exam, a lubricated, flexible tube that has a camera on the end of it is inserted into the anus and then passed into the rectum, colon, and other parts of the large intestine. You may have a colonoscopy as a part of normal colorectal screening or if you have certain symptoms, such as: Lack of red blood cells (anemia). Diarrhea that does not go away. Abdominal pain. Blood in your stool (feces). A colonoscopy can help screen for and diagnose medical problems, including: Tumors. Polyps. Inflammation. Areas of bleeding. Tell a health care provider about: Any allergies you have. All medicines you are taking, including vitamins, herbs, eye drops, creams, and chri-cte-rzfotxw medicines. Any problems you or family members have had with anesthetic medicines. Any blood disorders you have. Any surgeries you have had. Any medical conditions you have. Any problems you have had passing stool. What are the risks? Generally, this is a safe procedure. However, problems may occur, including: Bleeding. A tear in the intestine. A reaction to medicines given during the exam. Infection (rare). What happens before the procedure? Eating and drinking restrictions Follow instructions from your health care provider about eating and drinking, which may include: A few days before the procedure follow a low-fiber diet. Avoid nuts, seeds, dried fruit, raw fruits, and vegetables. 1 3 days before the procedure follow a clear liquid diet. Drink only clear liquids, such as clear broth or bouillon, black coffee or tea, clear juice, clear soft drinks or sports drinks, gelatin dessert, and popsicles. Avoid any liquids that contain red or purple dye. On the day of the procedure do not eat or drink anything starting 2 hours before the procedure, or within the time period that your health care provider recommends. Up to 2 hours before the procedure, you may continue to drink clear liquids, such as water or clear fruit juice. Bowel prep If you were prescribed an oral bowel prep to clean out your colon: Take it as told by your health care provider. Starting the day before your procedure, you will needto drink a large amount of medicated liquid. The liquid will cause you to have multiple loose stools until your stool is almost clear or light green. If your skin or anus gets irritated from diarrhea, you may use these to relieve the irritation: ? Medicated wipes, such as adult wet wipes with aloe and vitamin E. ? A skin-soothing product like petroleum jelly. If you vomit while drinking the bowel prep, take a break for up to 60 minutes and then begin the bowel prep again. If vomiting continues and you cannot take the bowel prep without vomiting, call yourhealth care provider. To clean out your colon, you may also be given: ? Laxative medicines. ? Instructions about how to use an enema. General instructions Ask your health care provider about: ? Changing or stopping your regular medicines or supplements. This is especially important if you aretaking iron supplements, diabetes medicines, or blood thinners. ? Taking medicines such as aspirin and ibuprofen. These medicines can thin your blood. Do not take these medicines before the procedure if your health care provider tells you not to. Plan to have someone take you home from the hospital or clinic. What happens during the procedure? An IV may be inserted into one of your veins. You will be given medicine to help you relax (sedative). To reduce your risk of infection: ? Your health care team will wash or sanitize their hands. ? Your anal area will be washed with soap. You will be asked to lie on your side with your knees bent. Your health care provider will lubricate a long, thin, flexible tube. The tube will have a camera and a light on the end. The tube will be inserted into your anus. The tube will be gently eased through your rectum and colon. Air will be delivered into your colon to keep it open. You may feel some pressure or cramping. The camera will be used to take images during the procedure. A small tissue sample may be removed to be examined under a microscope (biopsy). If small polyps are found, your health care provider may remove them and have them checked for cancer cells. When the exam is done, the tube will be removed. The procedure may vary among health care providers and hospitals. What happens after the procedure? Your blood pressure, heart rate, breathing rate, and blood oxygen level will be monitored until themedicines you were given have worn off. Do not drive for 24 hours after the exam. You may have a small amount of blood in your stool. You may pass gas and have mild abdominal cramping or bloating due to the air that was used to inflate your colon during the exam. It is up to you to get the results of your procedure. Ask your health care provider, or the department performing the procedure, when your results will be ready. Summary A colonoscopy is an exam to look at the entire large intestine. During a colonoscopy, a lubricated, flexible tube with a camera on the end of it is inserted into the anus and then passed into the colon and other parts of the large intestine. Follow instructions from your health care provider about eating and drinking before the procedure. If you were prescribed an oral bowel prep to clean out your colon, take it as told by your health care provider. After your procedure, your blood pressure, heart rate, breathing rate, and blood oxygen level will be monitored until the medicines you were given have worn off. This information is not intended to replace advice given to you by your health care provider. Make sure you discuss any questions you have with your health care provider. Document Released: 06/13/2001 Document Revised: 04/08/2018 Document Reviewed: 08/27/2016 [employer] Patient Education 2020 [employer] Additional Information VACCINATE! IT SAVES LIVES! Members of the community who have not yet received the COVID-19 vaccine and would like to receive it can visit one of [facility] vaccine clinics. There are many vaccine clinic locations within the [facility]. For locations and available times, please visit [email or web address].[place].gov/. It is important to note that some COVID mobile vaccine clinics are held outdoors and may be canceled in rainy or stormy conditions. To learn more about pediatric vaccinations (ages 5-11), we invite you to visit the [facility] webpage. [email or web address]/[email or web address] [email or web address] learn more about the COVID-19 vaccine, we invite you to visit the CDC website for a list of frequently asked questions.https://www.cdc.gov/coronavirus/2019-ncov/vaccines/faq.html [facility] Patient Portal Access Instructions: Stay connected with your healthcare team and access your personal medical information anytime with the [facility] Patient Portal. Please follow the directions below to create your [facility] account: 1.Access the email account you provided upon registration to the hospital/physician office.2.Look for an invitation email from [facility].3.Open the email and access the invitation link: AcceptInvitation to [facility].4.Fill in the required bone to create your account. To access your account, visit [email or web address]. Click the blue button labeled Access Patient Portal and then log in with the username and password that you created in the steps above. You will be able to view your test results, lab results, a summary of your visits, upcoming appointments and more. There is also a convenient messaging option where you can send secure messages to your p Tok[employer]nvider. In addition, you will have the ability to download any documents or summaries to your computer and/or send the information securely to a physician. Remember that your healthcare information is confidential, so carefully consider who you will allowto register on the [facility] Patient Portal for access to your information. You can also access the [facility] Patient Portal on the [facility] brie. Simply click on Patient Portal and then log into your account. If you would like to receive a full copy of your medical records, please contact the [facility] Medical Records Department by calling [phone], Friday through Friday between 8 a.m. and 4:30 p.m. HOW TO SAFELY DISPOSE OF PRESCRIPTION MEDICATIONS Please use one of the following methods to safely dispose of your unused medications. 1.Use a drug disposal kit: the drug disposal pouch allows you to safely discard your old and unuseddrugs. Ask your nurse to give you one when you are discharged.2.Visit a local take-back location: Many local pharmacies and police departments have programs that collect old and unwanted prescriptiondrugs. Call your local pharmacy or go to http://bit.ly/9F6Fn1j to find one close to you.3.Make use of household items: Use cat litter or old coffee grounds to dispose medications if other options arenot available. Mix your drugs with these household products, seal them in an airtight container andthrow it into the garbage. Call [facility]: [phone] to be sure your drugs can be disposed of in this way. Some medicines may require a different approach.4.Never flush your medications down the toilet. IF YOU HAVE BEEN PRESCRIBED AN OPIOID FOR PAIN If you have been prescribed an opioid (such as hydrocodone, oxycodone or morphine), it is critical to understand the possible side effects and risks of opioid pain medications. Even when taken as directed, opioids can have several side effects including: Tolerance, meaning you might need to take more of a medication for the same pain relief. Nausea, vomiting and/or constipation. Sleepiness, dizziness, dry mouth, confusion, depression or itching. Physical dependence, meaning you have withdrawal symptoms when a medication is stopped, can develop within a few days. KNOW YOUR RESPONSIBILITIES It is important to know exactly how much and how often to take the opioid pain medications you are prescribed. Never take opioids in higher amounts or more often than prescribed. Do not combine opioids with alcohol or other drugs that cause drowsiness, such as benzodiazepines, also known as benzos, including diazepam and alprazolam, muscle relaxants or sleep aids. Never sell or share prescription opioids. This is illegal. Store opioids in a secure place and out of reach of others (including children, family, friends and visitors). The last page of this document has been signed and retained as a CHART COPY. Signatures Patient Education Materials Monitored Anesthesia Care, Care After Colonoscopy, Adult Medication Leaflets My discharge plan and instructions have been reviewed and explained to me and I,AZALEA EDWARDS understand my current condition and have read and understand these discharge instructions. I have received a written copy of the plan/instructions. If I have questions, I am aware that I should contact my doctor. Patient/On Call Pharmacy Technician Signature: Date/Time: Relationship to Patient: Witness Name/Signature: Date/Time: [facility]05-01-2024 Note Indication for Surgery Colorectal cancer screening Preoperative Diagnosis Colorectal cancer screening, personal history of colon polyps Postoperative Diagnosis Diverticulosis Operation Colonoscopy Surgeon(s) Yojana Simmons D.O. Anesthesia MAC Estimated Blood Loss None Specimen(s) None Complications None Technique The patient was evaluated in the preoperative area and surgical consent was obtained. She was then brought to endoscopy and monitored on pulse oximetry, cardiac monitoring and placed on supplemental oxygen. She was placed in left lateral decubitus position and a surgical timeout was obtained. Sedation was provided by anesthesia. A digital exam was unremarkable. The colonoscope was carefully inserted into the rectum and advanced towards the cecum. Diverticulosis was noted in the left colon. Cecal pouch appeared normal. Photographs were obtained. The scope was then carefully retracted under 6-minute withdrawal with a good prep. Retroflexion was normal. The scope was removed. The patient was then transferred to the recovery area in stable condition vital signs. Discharge summary: 1. Final Diagnosis: Diverticulosis 2. Outcome: Patient tolerated procedure well without complication 3. Disposition: Patient was discharged home to follow previous diet and medications 4. Follow-up care: Follow-up with primary care physician as scheduled. 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 Assessment Postanesthesia assessment Vitals: Vital signs from flowsheet : Vital Signs 10/29/2023 8:40 EDT Heart Rate Monitored 68 bpm bpm Respiratory Rate - Anes 14 br/min br/min 10/29/2023 8:35 EDT Heart Rate Monitored 69 bpm bpm Respiratory Rate - Anes 17 br/min br/min Systolic Blood Pressure Non-Invasive 112 mmHg mmHg Diastolic Blood Pressure Non-Invasive 75 mmHg mmHg 10/29/2023 8:30 EDT Heart Rate Monitored 70 bpm bpm Respiratory Rate - Anes 11 br/min br/min Systolic Blood Pressure Non-Invasive 112 mmHg mmHg Diastolic Blood Pressure Non-Invasive 64 mmHg mmHg 10/29/2023 8:26 EDT Systolic Blood Pressure Non-Invasive 146 mmHg mmHg Diastolic Blood Pressure Non-Invasive 68 mmHg mmHg 10/29/2023 7:17 EDT Temperature Temporal Artery 36.5 DegC Apical Heart Rate 62 bpm Respiratory Rate 16 br/min Systolic Blood Pressure Non-Invasive 140 mmHg Diastolic Blood Pressure Non-Invasive 64 mmHg . Mental status: alert & oriented x 4. Respiratory function: lungs are clear to auscultation. Respiratory support: none. CV function: Normal rate. Cardiovascular support: none. Pain. Nausea status: see nursing documentation of medications. Postoperative hydration status: within normal limits. Digitally Signed by KRYS WILLS on 10/29/2023 08:42 AM [facility]05-01-2024 Anesthesiology Progress note Patient: AZALEA EDWARDS Age: 63 years Sex: Female : 1960 Associated Diagnoses: None Author: KRYS WILLS Preoperative Information Time of last food or liquid consumption: 10/28/2023 15:00:00 Anesthesia history Patient's history: negative. Family's history: negative. Review of Systems Ear/Nose/Mouth/Throat: Negative except as documented in history of present illness. Respiratory: Negative except as documented in history of present illness. Cardiovascular: Negative except as documented in history of present illness. Gastrointestinal: Negative except as documented in history of present illness. Genitourinary: Negative except as documented in history of present illness. Endocrine: Negative except as documented in history of present illness. Musculoskeletal: Negative except as documented in history of present illness. Integumentary: Negative except as documented in history of present illness. Neurologic: Negative except as documented in history of present illness. Health Status Allergies: Allergic Reactions (Selected) NKA, Allergies (1) ActiveReaction NKANone Documented Current medications: (Selected) Inpatient Medications Ordered Lactated Ringers Infusion 1,000 mL: 20 mL/hr, Intravenous Prescriptions Prescribed DULoxetine 60 mg oral delayed release capsule: 60 mg, 1 cap(s), Oral, qDay, for 100 day(s), 100 cap(s), 3 Refill(s) PEG-3350 with Electrolytes (Eqv-GoLYTELY) oral powder for reconstitution: See Instructions, Take asdirected 1 day before colonoscopy. Follow instructions as provided by your GI provider at [facility] 1 EA, 0 Refill(s) Documented Medications Documented Multiple Vitamins oral capsule: 1 cap(s), Oral, Daily, 0 Refill(s) Premarin 0.625 mg/g vaginal cream with applicator: 0 Refill(s) biotin: qDay, ONE DAILY, 0 Refill(s) calcium (as carbonate) 600 mg oral tablet: 1,200 mg, 2 tab(s), Oral, qDay, 0 Refill(s) cranberry oral capsule: ONE DAILY, 0 Refill(s), Medications (1) Active Scheduled: (0) Continuous: (1) Lactated Ringers 1,000 mL 1,000 mL, Intravenous, 20 mL/hr PRN: (0) Problem list: Medical Adenomatous polyp of colon / SNOMED CT 0405147820 / Confirmed Anxiety / SNOMED CT 936859153 / Confirmed Atrophic vaginitis / SNOMED CT 26387388 / Confirmed Depressive disorder / SNOMED CT 38233836 / Confirmed History of COVID-19 / SNOMED CT 6747751868 / Confirmed Menopausal state / SNOMED CT 627518892 / Confirmed Breast cancer screening by mammogram / SNOMED CT 757950260 / Confirmed Well adult exam / SNOMED CT 245760192 / Confirmed Resolved: Acquired trigger finger of left ring finger / SNOMED CT 6008095603 Resolved: Right ankle pain / SNOMED CT 781009033 Resolved: Dyspnea on effort / SNOMED CT 166437109 Resolved: Lipoma of thigh / SNOMED CT 873794600 Resolved: Plantar fasciitis, bilateral / SNOMED CT 884919913 Canceled: Dysuria / SNOMED CT 57987249 Canceled: Immunization due / SNOMED CT 380291569 Canceled: Menopausal osteoporosis / SNOMED CT 50175644 Canceled: Screening for deficiency anemia / SNOMED CT 071554520 Canceled: Screening for diabetes mellitus / SNOMED CT 399133558 Canceled: Screening for lipoid disorders / SNOMED CT 124705190 Canceled: Urinary tract infection in female / SNOMED CT 281955998, Active Problems (9) Adenomatous polyp of colon Anxiety Atrophic vaginitis Breast cancer screening by mammogram Depressive disorder History of COVID-19 Menopausal state Tobacco use Well adult exam Histories Past Medical History: Resolved Acquired trigger finger of left ring finger (6581695390): Resolved. Plantar fasciitis, bilateral (206002877): Resolved. Right ankle pain (382422119): Resolved. Lipoma of thigh (060187153): Resolved. Dyspnea on effort (215866304): Resolved. Family History: Hypertension Mother Procedure history: Colonoscopy ([id number]) on 09/18/2018 at 58 Years. Small bowel resection (504537840). Breast augmentation (0739494690). Social History Social & Psychosocial Habits Alcohol 10/29/2023 Use: Current Type: Wine Frequency: 1-2 times per week Employment/School 10/08/2023 Status: Unemployed Substance Abuse 10/29/2023 Use: Never Tobacco 10/29/2023 Tobacco Use: Former smoker, quit more Started at age: 38 Years Stopped at age: 48 Years Exercise 10/08/2023 Exercise type: Aerobics, Swimming, Yoga Times per week: 3-4 times/week Home/Environment 10/29/2023 Domestic Concerns None Living situation: Home/Independent Lives In Single level home Nutrition/Health 10/29/2023 Type of diet: Regular Appetite Good Eating Difficulties None Caffeine intake amount: coffee-3 servings a day . Physical Examination Vital Signs 10/29/2023 7:17 EDT Temperature Temporal Artery 36.5 DegC Apical Heart Rate 62 bpm Respiratory Rate 16 br/min Systolic Blood Pressure Non-Invasive 140 mmHg Diastolic Blood Pressure Non-Invasive 64 mmHg Vital Signs(last 24 hrs) Last Charted CNV991 mmHg (OCTOBER 28 07:17) DBP64 mmHg (OCTOBER 28 07:17) BMI26.86 (OCTOBER 28 07:29) Measurements from flowsheet : Measurements 10/29/2023 7:29 EDT Height 154 cm Admission Weight 63.7 kg [place] Body Weight 46.95 kg BSA Admission 1.62 Body Mass Index 26.86 kg/m2 10/29/2023 7:17 EDT Height 154 cm Admission Weight 63.7 kg [place] Body Weight 46.95 kg Pain assessment: Pain Assessment 10/29/2023 7:17 EDT Primary Pain Intensity 0 Pain Scale Type 0-10 Pain scale . General: Alert and oriented. Airway: Normal neck range of motion. Mallampati classification: II (soft palate, fauces, uvula visible). Head: Normocephalic. Dentition Evaluation: Intact, Own teeth. Neck: Full range of motion. Respiratory: Lungs are clear to auscultation. Cardiovascular: Normal rate. Heart Sounds: Normal. Gastrointestinal: Soft. Musculoskeletal Normal range of motion. Integumentary: Intact, Warm, Dry. Neurologic: Alert, Oriented. Review / Management Results review: No qualifying data available , Lab results 10/29/2023 7:38 EDT Hand Right 10/29/2023 22 gauge Peripheral IV Activity: Insert new site Peripheral IV Dressing Condition: Clean, Dry, Intact Peripheral IV Dressing Activity: Applied, Transparent dressing Peripheral IV Line Status/Patency: Continuous infusion Peripheral IV Line Care: Secured with tape Peripheral IV Site Condition: No complications Peripheral IV Equipment: Extension set Peripheral IV Number of Attempts: 1 10/29/2023 7:29 EDT Designated Person #1 We May Share [facility] [phone] Designated Person #1 Relationship Spouse Height 154 cm Admission Weight 63.7 kg [place] Body Weight 46.95 kg BSA Admission 1.62 Body Mass Index 26.86 kg/m2 Status No, per patient Sensory Deficits None Infectious Disease Symptoms Patient states no symptoms Infectious Disease Recent Exposure No Alcohol and Drug Use No Employee of Institutional Living No Health Care Employee No History of Exposure to TB No History of Positive Chest X-Ray for TB No History of Positive TB Skin Test No Homeless No Known Immunosuppression No Recent Immigrant No Resident of Institutional Living No Bloody Sputum No Fatigue No Fever No Loss of Appetite No Night Sweats No Persistent Cough > 3 Weeks No Weight Loss No Barriers to Learning None evident Teaching Method Printed materials Preferred Spoken Language Pashto Preferred Written Language Pashto Information Given by Patient Patient's Current Physicians Dr Painting Discharge To, Anticipated Home independently Prev Test Positive/Diagnosis w/COVID-19 Yes Previous COVID-19 Positive Date 2020 Current Quarantine/Isolated any Illness No Any Contact with Sick Animals/Birds No Traveled Anywhere in Last 30 Days No No Personal Devices, Patient Valuables Glasses Admission Note-Nursing Procedure/Therapy Intake 10/29/2023 7:17 EDT Height 154 cm Admission Weight 63.7 kg [place] Body Weight 46.95 kg Temperature Temporal Artery 36.5 DegC Apical Heart Rate 62 bpm Respiratory Rate 16 br/min Systolic Blood Pressure Non-Invasive 140 mmHg Diastolic Blood Pressure Non-Invasive 64 mmHg Primary Pain Intensity 0 Pain Scale Type 0-10 Pain scale Heart Rhythm Regular Respirations Unlabored Respiratory Pattern Regular Cough None Oxygen Therapy Room air Oxygen Saturation 96 % Abdomen Description Non-distended, Soft Abdomen Palpation Non-Tender Bowel Sounds All Quadrants Present Urinary Elimination Voiding, no difficulties Skin Temperature Warm Skin Description [place], Normal for ethnicity, Dry Skin Integrity Intact IV Present Present Neurological Symptoms Patient denies Level of Consciousness Alert Strength All Extremities Strong Tone All Extremities Normal Sensation All Extremities Intact Affect/Behavior Appropriate, Calm, Cooperative Orientation Oriented x 4 Allergies Yes Anesthesia Extension Set Applied Yes Colon Prep Results Excellent Consent Form Signed Yes Patient Dressed In Hospital gown, No undergarments Pre-op Preparation Glasses removed, Undergarments removed History & Physical Update On Chart Yes History & Physical On Chart Yes Bowel Prep Completed Yes Positioning Repositions self NPO Status confirmed Standard Safety ID band on, Call device within reach, Bed in low position, Wheels locked, personal items within reach Patient ID Band on and Verified Yes Implants Verified Yes Pacemaker/AICD Verified Yes Site Verified by Patient/Family Yes Anesthesia Consent Signed Yes Blood Consent Signed No Last Fluid Intake 10/29/2023 3:00 Last Food Intake 10/27/2023 19:00 Last Void 10/29/2023 7:19 10/29/2023 7:06 EDT [place] History and Physical . Assessment and Plan [place] [employer] of Anesthesiologists (ASA) physical status classification: Class II. Anesthetic Preoperative Plan Premedication: intravenous. Anesthetic technique: MAC. Induction: intravenously. Maintenance airway: Mask. Risks discussed: nausea, vomiting, headache, sore throat, dental injury, hypotension, allergic reaction, serious complications. Informed consent: signed by patient. Digitally Signed by KRYS WILLS on 10/29/2023 08:07 AM [facility]05-01-2024 Note [place] ADMISSION HISTORY AND PHYSICIAL CHIEF COMPLAINT: Colorectal cancer screening HISTORY OF PRESENT ILLNESS: Colorectal cancer screening, history of colon polyps, last colonoscopy 2018 REVIEW OF SYSTEMS: Constitutional: denies weight loss Cardiovascular:denies chest pain, palpitations Respiratory:denies shortness of breath Gastrointestinal:no abd pain Musculoskeletal: no arthralgias Skin: no rashes ACTIVE PROBLEMS: (9) Adenomatous polyp of colon (0767230403) Anxiety ([id number]) Atrophic vaginitis (62096934) Breast cancer screening by mammogram (164687528) Depressive disorder (44729939) History of COVID-19 (9621161387) Menopausal state (376122786) Tobacco use (0206016238) Well adult exam (891903882) MEDICATIONS: Active Inpt Meds: None Active PRN Meds: None One Time Meds: None Active IV Meds: None ALLERGIES: (1) NKA FAMILY HISTORY: SOCIAL HISTORY: PHYSICAL EXAM: VITALS: No Data Available 24 Hr Tmax: No Data Available 36 Hr Tmax: No Data Available Vital Signs are the last 5 in the past 48 hours. Weights display the last 5 within 7 days. Initial Wt: No Data Available Current Wt: No Data Available physical exam alert and oriented cardio; regular without murmur pulm; clear abd; soft, nontender LABS: No 36hr Lab Data DIAGNOSTICS: IMPRESSION: Colorectal cancer screening (high risk), personal history of colon polyps PLAN: Proceed with colonoscopy as discussed in the office Digitally Signed by YOJANA SIMMONS DO on 10/29/2023 07:07 AM [facility]04-18-2024 Note. MICRO - Microbiology PROCEDURE: Urine Culture [*1] SOURCE: Urine, Clean Catch BODY SITE: COLLECTED DATE/TIME: 10/15/2023 16:28 EDT RECEIVED DATE/TIME: 10/15/2023 18:55 EDT START DATE/TIME: 10/15/2023 18:55 EDT FREE TEXT SOURCE: FINAL REPORTS Final Report [] Verified Date/Time/Personnel: 10/16/2023 15:16 EDT <10,000 cfu/ml. No Significant growth. Sensitivity not indicated. 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 Postmenopausal: Yes HRT use: Yes, vaginal estrogen Last Pap: 10/23/2020 normal HPV: 10/20/2020 negative History of abnormal pap: No Last mammogram: 2022 normal @[facility] History of abnormal mammogram: No Sexually active: Yes Pain with intercourse: No Postcoital bleeding: No OB History T0 L0 SAB0 IAB0 Ectopic0 Multiple0 Live Births0 Comment: 5 step children Clipping Marker History LMP: Postmenopausal Age at Menarche: Age at First : Age at Menopause: Clipping Marker History Comments: Sexual Activity: Yes; Male Contraception: [...] external genitalia normal, normal Bartholin's glands, urethra, Crum's glands, no vulvar lesions, no cervical lesions, [...] one year or sooner as needed Ana Byrnes APRN.STORAGE RECEIPT POSTER [facility] Miscellaneous Notes* Telephone Encounter - Christina Alex RN - 03/08/2022 10:38 AM EDT Patient calling for refill on Premarin Rx. Patient last seen for annual exam on 10/18/20. Christina Alex RN documented in this [facility]02-22-2022 Miscellaneous Notes* Telephone Encounter - Cee Shaffer RN - 08/21/2021 8:49 AM EST Last annual with DM 09/2020. Pending Prescriptions Disp Refills CLOBETASOL 0.05 % TOPICAL OINTMENT 30 g 0 Sig: Apply 1 application to affected area twice daily. For 4 weeks then use once weekly for maintenance GENE: No RX INSTRUCTIONS: Patient aware RX will be sent to pharmacy. No need to notify patient. Cee Shaffer RN [facility] Future Appointments Appointment Date:11/12/2023 10:00:00 AM Scheduled Provider:CHARO RICH DO Location:[facility] Appointment Type:PC OV [facility] Evaluation note* Diagnosis Onset Date Resolution Status COVID-19 acute [facility] Work Phone: Evaluation noteNo assessment information available [facility] Work Phone: Evaluation note* Diagnosis Encounter for gynecological examination (general) (routine) without abnormal findings- Primary documented in this encounter [facility] note* Diagnosis Allergic contact dermatitis due to plants, except food- Primary Contact dermatitis and other eczema due to plants (except food) documented in this encounter [facility] course Narrative No data available for this section [facility] Hospital Discharge instructions No data available for this section [facility] Progress note No data available for this section [facility] Reason for referral (narrative)No reason for referral information availableWC[facility] Work Phone: Chief Complaint and Reason for Visit Chief Complaint SORE THROAT, COUGH-C OVID TEST DYSPNEA ON EXERTION DYSPNEA ON EXERTION Reason for Visit COVID-19 Chief Complaint SCREENING Chief Complaint Admit Date SCREENING July 21, 2024 1 1:52am Family History No Family History Records Found Relationship Condition Age at Onset Recorded Date/T jessica mother Hypertension Unknown father Chronic obstructive pulmonary disease Unk nown Advance Directives No Advanced Directives Records Found Advance Directive Response Recorded Date/ Time Advance Directives No August 06, 2015 5:35pm Living Will No November 30, 2018 7 :49pm Power of Pitch Flaker No November 30, 2018 7:49pm Advance Directive Response Recorded Date/ Time Advance Directives No August 06, 2015 4:35pm Living Will No November 30, 2018 6 :49pm Power of Pitch Flaker No November 30, 2018 6:49pm Advance Directive Response Recorded Date/ Time Living Will No November 30, 2018 6 :49pm Power of Pitch Flaker No November 30, 2018 6:49pm Advance Directives No August 06, 2015 4:35pm Summary Purpose Additional Source Comments Source Comments (unrecognize d section and content) In the event this informatio n is protected by the Federal Confidentiality of Alcohol and Drug Abuse Patient Records regulations: The Federal rules restrict any use of the information to criminally investigate or prosecute any alcohol or drug abuse patient.[facility] the event this information is protected by the Federal Confidentiality of Alcohol and Drug Abuse Patient Records regulations: The Federal rules restrict any use of the information to criminally investigate or prosecute any alcohol or drug abuse patient.[facility] the event this information is protected by the Federal Confidentiality of Alcohol and Drug Abuse Patient Records regulations: The Federal rules restrict any use of the information to criminally investigate or prosecute any alcohol or drug abuse patient.[facility] Hospital[facility] the event this information is protected by the Federal Confidentiality of Alcohol and Drug Abuse Patient Records regulations: The Federal rules restrict any use of the information to criminally investigate or prosecute any alcohol or drug abuse patient.[facility] the event this information is protected by the Federal Confidentiality of Alcohol and Drug Abuse Patient Records regulations: The Federal rules restrict any use of the information to criminally investigate or prosecute any alcohol or drug abuse patient.[facility] Hospital[facility] the event this information is protected by the Federal Confidentiality of Alcohol and Drug Abuse Patient Records regulations: The Federal rules restrict any use of the information to criminally investigate or prosecute any alcohol or drug abuse patient.[facility] Hospital[facility] the event this information is protected by the Federal Confidentiality of Alcohol and Drug Abuse Patient Records regulations: The Federal rules restrict any use of the information to criminally investigate or prosecute any alcohol or drug abuse patient.[facility] the event this information is protected by the Federal Confidentiality of Alcohol and Drug Abuse Patient Records regulations: The Federal rules restrict any use of the information to criminally investigate or prosecute any alcohol or drug abuse patient.[facility] Reason for Visit (unrecogniz ed section and content) Reason Onset Date Comments Refill Request 08/21/2021 Reason Onset Date Comments Refill Request 03/08/2022 Reason Comments Yearly Exam Reason Comments Rash right arm and right side, itching x 1 week Reason Comments Results Reason Comments Patient Question Care Teams (unrecognized sec tion and content) Agency Service Representative Relationship Specialty Start Date End Date Charo Rich [address] [place] [phone] PCP - General Family Practice 09/08/20 Agency Service Representative Relationship Specialty Start Date End Date Charo Rich [address] [place] [address] PCP - General Family Practice 09/08/20 Agency Service Representative Relationship Specialty Start Date End Date Charo Rich [address] [place] [phone] PCP - General Family Practice 09/08/20 Team Status: Active Member Role Status Dates Dr. Charo Rich DO Family Provider Active Dr. Charo Rich DO Primary Care Provider Active Team Status: Inactive Member Role Status Dates Dr. Charo Rich DO Primary Care Pro vider, Attending Provider, Referring Provider Active Agency Service Representative Relationship Specialty Start Date End Date Charo Rich DO [address] [place] [phone] PCP - General Family Medicine 09/08/20 Agency Service Representative Relationship Specialty Start Date End Date Charo Rich DO [address] [place] [phone] PCP - General Family Medicine 09/08/20 Agency Service Representative Relationship Specialty Start Date End Date Charo Rich DO [address] [place] [phone] PCP - General Family Medicine 09/08/20 Agency Service Representative Relationship Specialty Start Date End Date Charo Rich DO [address] [place] [phone] PCP - General Family Medicine 09/08/20 Team Status: Inactive Member Role Status Dates Dr. Charo Rich DO Primary Care Provider Active Start: May 12, 2024 End: May 12, 2024 Dr. Charo Rich DO Attending Provider Active Start: May 12, 2024 End: May 12, 2024 Dr. Charo Rich DO Referring Provider Active Start: May 12, 2024 End: May 12, 2024 Team Status: Inactive Member Role Status Dates Dr. Charo Rich DO Primary Care Provider Active Start: May 20, 2024 End: May 20, 2024 Dr. Charo Rich DO Attending Provider Active Start: May 20, 2024 End: May 20, 2024 Dr. Charo Rich DO Referring Provider Active Start: May 20, 2024 End: May 20, 2024 Team Status: Inactive Member Role Status Dates Dr. Charo Rich DO Primary Care Provider Active Start: July 21, 2024 End: July 21, 2024 Ana Byrnes NP, THORACIC MEDICINE SPECIALIST-C Attending Provider Active Start: July 21, 2024 End: July 21, 2024 Ana Byrnes NP, THORACIC MEDICINE SPECIALIST-C Referring Provider Active Start: July 21, 2024 End: July 21, 2024 Agency Service Representative Relationship Specialty Start Date End Date Charo Rich DO [address] [place] [phone] PCP - General Family Medicine 09/08/20 Goals (unrecognized section and content) Goals may be documented in a n alternate sectionGoals may be documented in an alternate sectionGoals may be documented in an alternate sectionGoals may be documented in an alternate section No data available for this section No data available for this sectionGoals may be documented in an alternate section INFORMATION SOURCE (unrecogn ized section and content) DATE CREATED AUTHOR 11/01/2023 [facility] ([place]) DATE CREATED AUTHOR AUTHOR'S ORGANIZ ATION 02/12/2025 [facility] DATE CREATED AUTHOR AUTHOR'S ORGANIZ ATION 05/09/2025 [facility] FOR RECORDS PERTAINING TO PATIENTS WHO ARE [...] BE BASED ON THE PRIMARY CLINICAL RECORDS. [email or web address] [facility]. provides no warranty or guarantee of the accuracy or completeness of information in this document.
[2025-06-08] MEDS: Lactated Ringers 1,000 ML 15 ML IV (07:17)
--- NOTE | 2025-06-08 07:22 | PCM.PRE.AN2 ---
ASA Classification* ASA Classification ASA Classification: 2 Assessment & Plan Anesthesia* Anesthesia Assessment Anesthesia Assessment: Discussed sedation and/or anesthesia options, risks, benefits, and alternatives with patient/parents/legal guardian/POA. Questions invited. The patient/parents/legal guardian/POA seems to understand and agrees to proceed with anesthesia plan. Reviewed the physical assessment, medical history, allergy history and patient home medications list prior to surgery/procedure/anesthetic and documented any changes. Performed airway and anesthesia risk assessments. Anesthesia Type Anesthesia Type: General and Block History Source History Obtained from:: Patient and Chart Anesthesia Focused Assessment* Temperature: 97.8 F Pulse Rate: 70 Blood Pressure: 122/75 Respiratory Rate: 18 Pulse Ox: 97 Oxygen Delivery Method: Room Air Airway Assessment Mouth opens: >3 cm Mallampati Score: II Teeth Condition: Intact Labs Anesthesia Preop lab: CBC WBC, (4.4-11.0) 6.5 K/mm3 05/12/24, 08:05 RBC, (4.2-5.4) 4.71 M/mm3 05/12/24, 08:05 Hgb, (12.0-15.0) 13.0 g/dL 05/12/24, 08:05 Hct, (37-47) 41.3 % 05/12/24, 08:05 Plt Count, (150-450) 390 K/mm3 05/12/24, 08:05 CHEMISTRY Potassium, (3.5-5.1) 4.6 mmol/L 05/12/24, 08:05 Sodium, (136-145) 140 mmol/L 05/12/24, 08:05 Magnesium, (1.8-2.4) 1.9 mg/dL 08/08/15, 05:48 BUN, (7-18) 14 mg/dL 05/12/24, 08:05 Creatinine, (0.55-1.02) 0.71 mg/dL 05/12/24, 08:05 Glucose, (74-106) 90 mg/dL 05/12/24, 08:05 COAG Pre-Assessment Diagnosis/Proposed Procedure Planned Operative Procedure(s): (L) Left shoulder Arthroscopy,subacromial decompression, rotator cuff repair, biceps tenodesis Anesthesia History 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 When Was Last Pacemaker Check QUESTION #4 FULL TEXT: You/Your Family Experience fever (hyperthermia) with Anesthesia Last Oral Intake Last Oral intake: Last Oral Intake NPO since 21:00 06/08/25 07:12 Meds taken in AM with sips of No 06/08/25 07:12 water? 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 Female Yes 05/27/25 14:21 HX of Motion Sickness No 05/27/25 14:21 HX of N/V After Surgery No 05/27/25 14:21 Non-Smoker Yes 05/27/25 14:21 Duration of Surgery greater Yes 05/27/25 14:21 than 60 minutes Number of Risk Factors 3 05/27/25 14:21 PONV Score Moderate Risk 05/27/25 14:21 Height & Weight Height & Weight: Anesthesia: Height & Weight Height 5 ft 06/08/25 07:12 Weight: 63 kg 06/08/25 07:12 Body Mass Index (BMI) 27.1 06/08/25 07:12 Respiratory Assessment Respiratory Assessment - merchandise collector: Respiratory Tract Infection Hx - merchandise collector Hx Respiratory Tract Infection No 05/27/25 14:21 STOP Sleep Apnea STOP Sleep Apnea - merchandise collector: STOP Sleep Apnea - merchandise collector Hx Hypertension No 05/27/25 14:21 Hx Sleep Apnea No 05/27/25 14:21 CPAP BIPAP Do you snore loudly (louder No 05/27/25 14:21 than talking or can be heard Do you often feel tired/ No 05/27/25 14:21 fatigued/ sleepy during daytime? Has anyone observed you stop No 05/27/25 14:21 breathing during sleep? STOP Results Negative 05/27/25 14:21 QUESTION #5 FULL TEXT : Do you snore loudly (louder than talking or can be heard through closed doors)? 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 Specify any problems Hx of Preganancy in last 3 No 05/27/25 14:21 Months Nurse Filling Out Transfusion JZOLLINGE 05/27/25 14:21 & Questions: Date: 05/27/25 05/27/25 14:21 Time: 14:22 05/27/25 14:21 Patient unable to answer at this time (ie. confused, unrespo /Reproduction History /Reproductive History - merchandise collector: /Reproductive Hx- merchandise collector Hx Now No 05/27/25 14:21 Gestational Age (in weeks): EDC: Hx Hx Para Hx Section SAB No 05/27/25 14:21 Does the father of the baby or his family experience fever w Father of the baby Malignant Hypertension history comment Active Medications Active Medications: Current Medications Generic Name Dose Route Start Last Admin Trade Name Freq PRN Reason Stop Dose Admin Cefazolin Sodium 2 gm/ Sodium 110 mls @ 200 mls/hr 06/08/25 07:00 Chloride IV 06/08/25 07:32 INTRAOP ONE Lactated Ringer's 1,000 mls @ 15 mls/hr 06/08/25 07:00 06/08/25 07:17 IV 15 mls/hr .Q48H FAYE Administration PFSH Medical History Left rotator cuff tear Bursitis of right shoulder Impingement of right shoulder Superior labrum zxesegly-mz-opbnvtcki (SLAP) tear of right shoulder Wears glasses Wears contact lenses Post-menopausal History of steroid therapy High cholesterol Former smoker Right rotator cuff tear Left shoulder pain Right shoulder pain Anxiety Home Medications ?Medication ?Instructions ?Recorded ?Last Taken ?Type conjugated estrogens 0.625 mg/gram 0.625 applicatio topical QWEEK 11/30/18 06/07/25 History vaginal cream (Premarin) calcium carbonate 500 mg PO QDAY 01/27/25 06/07/25 History cranberry 500 mg capsule 500 mg PO QDAY 01/27/25 06/07/25 History duloxetine 60 mg capsule,delayed 60 mg PO DAILY Anxiety 01/27/25 06/07/25 History release sprinkle multivitamin 1 tab PO QDAY 01/27/25 06/07/25 History ea-zyl-ulzwu 120 mcg-biotin 1,250 1 cap PO DAILY 01/27/25 06/07/25 History mcg-K1 60 oyg-dypgrjaw-mngu capsule (Hair, Skin And Nails (Herbs)) turmeric 400 mg capsule 500 mg PO DAILY 01/27/25 06/07/25 History meloxicam 15 mg tablet 15 mg PO QDAY 04/28/25 Unknown History Held on 05/27/25. Instructions: until after surgery biotin 2,500 mcg capsule 2,500 mcg PO DAILY 05/27/25 06/07/25 History Allergy/AdvReac Type Severity Reaction Status Date / Time No Known Allergies Allergy Verified 06/08/25 07:10 Family History Mother Hypertension Father COPD (chronic obstructive pulmonary disease) Surgical History Hx of colonoscopy partial intestine removal History of intestinal surgery Hx of breast implants, bilateral Social History Smoking Status: Former smoker how long ago did patient quit smokin alcohol intake: never what type of physical activity do you participate in: walking and running Addt'l Information Additional Findings: NSR > 4 mets Review of Systems (Anesthesia) ROS Narrative System reviewed and no additional complaints, except as documented. Physical Exam Const alert and oriented x3 HEENT dentition normal Neck General: normal visual inspection and trachea midline Resp normal respiratory effort and normal air movement Auscultation: clear to auscultation bilaterally Cardio regular rate and regular rhythm Neuro oriented x3 and moves all extremities
--- NOTE | 2025-06-08 07:50 | PCM.HP.STD ---
HPI - General HPI Narrative ANTONIO EDWARDS, is a 64 F who presents for left shoulder arthroscopy subacromial decompression rotator cuff repair and biceps tenodesis. No changes to history and physical exam. Left shoulder marked. Risks alternatives benefits discussed as well as postoperative instructions and narcotic counseling. The patient understands no further questions okay to proceed with surgery plan for preoperative block. MR#: [id number] Acct: [id number] Name: ANTONIO EDWARDS ANN Rep #: [id number] : 1960 Provider: Dr. Bobby Arce MD Age/Sex: 64/F Location: [facility] Status: Signed Intake Vital Signs 04/11/2509:56 Height 5 ft Weight: 141 lb BMI 27.5 Intake Visit Reasons: LEFT SHOULDER Chief Complaint: MRI Review Accompanied by: Self Is patient in pain?: Yes Allergies No Known Allergies Allergy (Verified 04/28/25 08:23) Medications ?Medication ?Instructions ?Recorded ?Confirmed ?Type conjugated estrogens 0.625 mg/gram 0.625 applicatio topical QWEEK 11/30/18 04/28/25 History vaginal cream (Premarin) calcium carbonate 500 mg PO QDAY 01/27/25 04/28/25 History cranberry 500 mg capsule 500 mg PO QDAY 01/27/25 04/28/25 History duloxetine 60 mg capsule,delayed 60 mg PO DAILY Anxiety 01/27/25 04/28/25 History release sprinkle multivitamin 1 tab PO QDAY 01/27/25 04/28/25 History dl-wiz-vmzxw 120 mcg-biotin 1,250 1 cap PO DAILY 01/27/25 04/28/25 History mcg-K1 60 qgb-vjpfnoyt-ztgu capsule (Hair, Skin And Nails (Herbs)) turmeric 400 mg capsule 500 mg PO DAILY 01/27/25 04/28/25 History meloxicam 15 mg tablet 15 mg PO QDAY 04/28/25 04/28/25 History Have you fallen in the past year?: No PFSH Medical History Left rotator cuff tear Bursitis of right shoulder Impingement of right shoulder Superior labrum tioyppjo-qp-zstrzdwvw (SLAP) tear of right shoulder Wears glasses Wears contact lenses Post-menopausal History of steroid therapy High cholesterol Former smoker Right rotator cuff tear Left shoulder pain Right shoulder pain Anxiety Surgical History Hx of colonoscopy partial intestine removal History of intestinal surgery Hx of breast implants, bilateral Family History Mother Hypertension Father COPD (chronic obstructive pulmonary disease) Social History Smoking Status: Former smoker how long ago did patient quit smokin alcohol intake: never what type of physical activity do you participate in: walking and running HPI LEFT SHOULDER Details: This documentation accurately reflects the service provided and the decisions made by me, Dr. Bobby Arce MD 04/28/25 0806. Part of today?s visit was documented by [ ], acting as scribe. ANTONIO EDWARDS is a 64 year old F here today for FU L shoulder MRI. This has been going on now for over 3 months. It got worse as she had to use the shoulder more after the right shoulder surgery. The right shoulder is doing perfectly fine no pain or difficulties there doing active physical therapy and the surgery was about 2 months ago now. She has been on meloxicam for over a month it is does help a little bit but the shoulder is still quite sore on the left side even worse than the right side was before surgery. Supplemental Info [facility] Imaging Services [facility] [place] [address] Upper Ext Joint Only(Routine) MR#: [id number] Acct: [id number] Name: ANTONIO EDWARDS ANN Rep #: [id number] : 1960 F 64 From: Mahesh Hughes MD PCP: BRADY ORTEGA Status: REG CLI Study: Upper Ext Joint Only(Routine) Date of Exam: 04/21/25 Exam# [id number] Ordering Dr: Bobby Arce MD PROCEDURE: UPPER EXT JOINT ONLY(ROUTINE) 04/21/2025 REASON FOR EXAM: PAIN, EVAL CUFF TECHNIQUE: Procedure Code: MRIUEJ Modality: MR Procedure: UPPER EXT JOINT ONLY(ROUTINE) T1, T2, PD, multiplanar and multisequence images of the left shoulder were obtained without IV contrast administration. COMPARISON: None FINDINGS: Bone Marrow: There is subcortical cyst formation deep to the supraspinatus insertion. AC joint: There is moderate AC joint hypertrophy without evidence of separation. There is a type 3 acromion with impingement configuration. Rotator cuff: There is no significant muscular atrophy. There is a full-thickness 80% width tear of the distal supraspinatus, without retraction. There is severe distal infraspinatus tendinopathy without full-thickness tear or retraction. There is severe distal subscapularis tendinopathy without tear. The teres minor appears intact. Labrum: The labrum appears intact. Effusion: There is a moderate joint effusion which extends in the subacromial subdeltoid bursa. Cartilage: There is no focal chondromalacia. Biceps tendon: There is severe tendinopathy of the intra and extra-articular portion of the biceps tendon without full-thickness tear or retraction. MRI/Upper Ext Joint Only(Routine) IMPRESSION: There is subcortical cyst formation deep to the supraspinatus insertion. There is moderate AC joint hypertrophy without evidence of separation. There is a type 3 acromion with impingement configuration. There is no significant muscular atrophy. There is a full-thickness 80% width tear of the distal supraspinatus, without retraction. There is severe distal infraspinatus tendinopathy without full-thickness tear or retraction. There is severe distal subscapularis tendinopathy without tear. There is a moderate joint effusion which extends in the subacromial subdeltoid bursa. There is severe tendinopathy of the intra and extra-articular portion of the biceps tendon without full-thickness tear or retraction. Reading Location: [facility] Coding Level of Care Code Off vis,est,level 4 Diagnoses Left rotator cuff tear M75.102 Assessment and Plan Assessment and Plan (1) Left rotator cuff tear: Status: Acute Plan: 64 yr F with L shoulder full-thickness 80% width tear of the distal supraspinatus, without retraction, biceps tendinopathy. Patient counseled on the diagnosis prognosis different treatment options including ongoing conservative management versus surgery. Patient is well familiar with all the different options here. She would like to go ahead with surgery. This would be in the form of a left shoulder arthroscopy subacromial decompression rotator cuff repair and biceps tenodesis. Pros and cons risks and benefits were discussed with the patient including but not limited to infection, pain, stiffness, bleeding, damage to surrounding structures, neurovascular injury, recurrence or retear, failure or wear of hardware or fixation, instability, fracture, deep vein thrombosis and pulmonary embolism, anesthetic risks, , patient dissatisfaction, need for further surgery and other risks. Patient understood and wished to proceed with surgery, and signed the informed consent documentation. Clinical Quality Measures Falls Risk Screening/Assistive Devices Have you fallen in the past year?: No Ortho Exam General General: Yes no acute distress Neurologic: Yes alert and Yes oriented x3 Psychologic: Yes reasonable and appropriate Left Shoulder Skin/Wound: Yes CDI, No ecchymosis, No erythema and No swelling Testing: Yes Hawkin's, Yes Neer's, Yes Speed's, Yes TTP Biceps, No TTP AC Joint, Yes AROM-Forward Elevation 0-180, Yes AROM-External Rotation at side 0-60 and No cross arm SHOULDER: No pain at the AC joint. [facility] Medical History Left rotator cuff tear Bursitis of right shoulder Impingement of right shoulder Superior labrum cclheqjt-us-qhgrwzbgb (SLAP) tear of right shoulder Wears glasses Wears contact lenses Post-menopausal History of steroid therapy High cholesterol Former smoker Right rotator cuff tear Left shoulder pain Right shoulder pain Anxiety Home Medications ?Medication ?Instructions ?Recorded ?Last Taken ?Type conjugated estrogens 0.625 mg/gram 0.625 applicatio topical QWEEK 11/30/18 06/07/25 History vaginal cream (Premarin) calcium carbonate 500 mg PO QDAY 01/27/25 06/07/25 History cranberry 500 mg capsule 500 mg PO QDAY 01/27/25 06/07/25 History duloxetine 60 mg capsule,delayed 60 mg PO DAILY Anxiety 01/27/25 06/07/25 History release sprinkle multivitamin 1 tab PO QDAY 01/27/25 06/07/25 History ek-fkc-nvobe 120 mcg-biotin 1,250 1 cap PO DAILY 01/27/25 06/07/25 History mcg-K1 60 cyo-nkuzcira-rrtg capsule (Hair, Skin And Nails (Herbs)) turmeric 400 mg capsule 500 mg PO DAILY 01/27/25 06/07/25 History meloxicam 15 mg tablet 15 mg PO QDAY 04/28/25 Unknown History Held on 05/27/25. Instructions: until after surgery biotin 2,500 mcg capsule 2,500 mcg PO DAILY 05/27/25 06/07/25 History Allergy/AdvReac Type Severity Reaction Status Date / Time No Known Allergies Allergy Verified 06/08/25 07:10 Family History Mother Hypertension Father COPD (chronic obstructive pulmonary disease) Surgical History Hx of colonoscopy partial intestine removal History of intestinal surgery Hx of breast implants, bilateral Social History Smoking Status: Former smoker how long ago did patient quit smokin alcohol intake: never what type of physical activity do you participate in: walking and running Vital Signs Vital Signs Vital Signs: 06/08/25 07:12 06/08/25 07:12 06/08/25 07:12 Temperature 97.8 F Temperature Source Temporal Pulse Rate 70 Respiratory Rate 18 Respiratory Pattern Normal Blood Pressure 122/75 H Blood Pressure Mean 90 Blood Pressure Source Monitor Blood Pressure Position Semi-Fowlers Blood Pressure Location Right Arm Baseline BP 122/75 Pulse Ox 97 Oxygen Delivery Method Room Air 06/08/25 07:37 Temperature 97.8 F Temperature Source Pulse Rate 70 Respiratory Rate 18 Respiratory Pattern Blood Pressure 122/75 H Blood Pressure Mean Blood Pressure Source Blood Pressure Position Blood Pressure Location Baseline BP Pulse Ox 97 Oxygen Delivery Method Room Air Weight Weight: 138 lb 14.259 oz Body Mass Index (BMI) 27.1
[2025-06-08 08:03] LABS: Hematocrit 39.4 % (37-47); Hemoglobin 12.6 g/dL (12.0-15.0); Mean Corp Hgb Conc 32.0 g/dL (32-36); Mean Corpuscular Volume 86.2 fL (81-99); Mean Platelet Vol. 9.5 fl (6.2-12.0); Platelet Count 342 K/mm3 (150-450); RBC Distribution Width CV 13.2 % (11.6-14.6); RBC Distribution Width SD 41.3 fl (35.1-43.9); Red Blood Count 4.57 M/mm3 (4.2-5.4); White Blood Count 5.5 K/mm3 (4.4-11.0)
[2025-06-08 08:25] LABS: Anion Gap 10 (5-15); BUN 18 mg/dL (4-19); BUN/Creat Ratio 26.8 RATIO (10-20); Calcium,Total 9.0 mg/dL (7.6-11.0); Carbon Dioxide 25.6 mmol/L (21.0-32.0); Chloride 106 mmol/L (98-108); Estimated Creatinine Clearance 57.33 ml/min (50-250); Glucose 100 mg/dL (70-99); Potassium 4.0 mmol/L (3.3-5.1)
[2025-06-08] MEDS: Midazolam 2 MG/2 ML Syringe IV (08:27)
[2025-06-08] MEDS: Cefazolin 1 GM/5 ML Vial 2 GM IV (08:34)
[2025-06-08] MEDS: Epinephrine (1 mg/ml) 1 MG/ML VIAL (09:08)
[2025-06-08] MEDS: fentaNYL 100 MCG/2 ML Ampul IV (10:12)
--- NOTE | 2025-06-08 10:12 | DCINST_ITS ---
Discharge Instructions Diet Discharge Diet: No restrictions Activity Ice area for (Minutes): 10 Lifting Restrictions: gentle rom only, no lifting over 1 pound Additional Activity Instructions:: ok for pendulums, sling ok to remove at rest. Dressing / Incision Call your doctor if your incision/area has: Continuous Slow Oozing, Sudden Increased Bleeding, Increased Pain/ Swelling, Increased Redness, Foul Smelling Discharge and Swelling at the incision site Call your doctor if you observe: Fever of 101 or Higher, Coldness, Increased Pain and Numbness or Tingling Remove Dressing in: leave in place till F/U Cleanse incision/area with: Do not get Incision Wet Follow Up Care Please Follow Up With: Bobby Arce MD When: within 2 weeks Test Results: Test results from this visit will be discussed in further detail at your follow- up appointment, if applicable. Discharge Plan Admission Attending Provider: Bobby Arce Primary Care Provider: ANDREY SMITH Instructions Patient Instructions: Rotator Cuff Injury Print Language: German Discharge Orders/Prescriptions Prescriptions: New oxycodone-acetaminophen [Percocet] 5-325 mg tablet 1 tab PO Q6H MDD 6 PRN (Reason: pain) 5 Days Qty: 20 0RF No Action calcium carbonate 500 mg calcium (1,250 mg) tablet 500 mg PO QDAY duloxetine 60 mg capsule, delayed rel sprinkle 60 mg PO DAILY multivitamin Tablet 1 tab PO QDAY turmeric 400 mg capsule 500 mg PO DAILY Hair, Skin And Nails (Herbs) 120-1,250-60 mcg capsule 1 cap PO DAILY cranberry 500 mg capsule 500 mg PO QDAY Rx Instructions: administer with meals meloxicam 15 mg tablet 15 mg PO QDAY Premarin 0.625 cream 0.625 applicatio topical QWEEK biotin 2,500 mcg capsule 2,500 mcg PO DAILY Referrals / Follow Up: Bobby Arce MD [Med Staff - Active Staff, Orthopedics] ANDREY SMITH AIRPORT OPERATIONS COORDINATOR-C [Primary Care Provider, Family Practice] Disposition Disposition (needs filled in before D/C Order can be placed): Home, Self Care
--- NOTE | 2025-06-08 10:14 | PCM.OPRPT ---
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: Yes Sr Account Executive: sanchez Tasks completed by assistant professor of biology: Retracting Type of Anesthesia: Block,Regional and General RN Documented Start/Stop Times: Operation Date: 06/08/25 08:00 Case Time Into Pre-Op 06/08/25 06:47 Anesthesia Start 06/08/25 08:18 Into Room 06/08/25 08:18 Procedure Start 06/08/25 08:55 Procedure End 06/08/25 10:08 Procedure Start Time: 08:55 Procedure Stop Time: 10:08 Select all DRAINS/GRAFTS/IMPLANTS that apply: Implanted device Implanted device details: see below Estimated Blood Loss: 25 Specimen collected: No Description of surgery: Patient brought to the operating room theater. Placed supine on the table. General anesthesia induced. 2 g of IV Ancef administered prior to the start of the case. Patient transferred left side up lateral decubitus beanbag positioner. Axillary roll placed. SCDs on the legs. All bony prominences padded. Upper extremity prepped and draped in the usual sterile fashion with chlorhexidine-based prep solution allowing over 3 minutes drying time prior to draping. 10 pounds of inline traction with the arm in 40 degrees of abduction was used. Preoperative timeout performed to confirm the site patient and the surgery. Began by inserting the arthroscope into the intra-articular portion of the shoulder. Use spinal needle inside out localization to perform an anterior portal through the rotator interval. Did a full diagnostic arthroscopy. Cartilage on the humeral head and the glenoid was normal. LHB was subluxed into the joint. LHB had fraying and tearing through the tendon at the origin. Did a tenotomy with ablator to plan for later tenodesis. Labrum slight fraying anterior, debrided. Remaining LHB intra articular proximal portion shortened and debrided. The subscapularis was normal, aside from some mild fraying. IS and TM normal undersurface. Synovitis undersurface of the SS, used ablator to cauterize and debride this, for limited synovectomy. Anterior leading edge near full thickness partial width tear of SS tendon. No retraction. I then placed the arthroscope into the subacromial space and used 2 accessory lateral portals. Did a complete bursectomy for mild amount of mostly non-inflammatory bursitis. Multiple trephinations in the area of the IS cyst. Downsloping of AL acromion. Used high speed nette to flatten this by 4mm. Cuff moderately mobile, but lost some tissue at the GT footprint. Cleaned up the margins at the frayed aspect of the cuff. Did a side to side closure, ensuring to capture the laminar layers. Used SMC sliding know, half hitches, cut short. Then 2 arthrex fiber RC soft all suture anchors at the articular margin. These had knotless mechanisms as well as the double loaded fiber tape sutures. I passed the fiber tape sutures medially using good purchase and a scorpion device as well as the knotless mechanism just anterior and posterior to the proposed crisscrossing suture repair stitches. Cut at the splice. Then crisscrossed the sutures and attached to suture limbs total 1 from each anchor to the another Arthrex bio composite 4.75 mm suture anchor for a crisscrossing repair this brought the tendon to the greater tuberosity with 70% coverage. 4 total anchors. I also prepared the tuberosity prior using ablator removing any remaining soft tissue and use the power pick instrument for multiple bony trephination's. I then converted the knotless mechanism medially to create 2 crisscrossing horizontal mattress sutures and then cut the suture short and removed all the stay sutures. I then returned my attention to performing the biceps tenodesis. I made a small 1.5 inch incision centered over the proximal anterior medial aspect of the humerus overlying the long head of the biceps tendon. I carried the dissection down through skin and subcutaneous tissue achieved meticulous hemostasis. Protected the cephalic vein dissected in the interval and identified long head of the biceps. Biceps quite scarred into the groove. Delivered this through the incision to shorten the tendon use the included fiber link suture with a luggage tag type stitch and then passed the suture twice through the tendon from superficial to deep. I then drilled a bicortical hole past the free end of the suture through the biceps tension tight button. I used the cable television access coordinator for cortex of the button and then pulled on the free end to deliver the tendon into the tunnel. I cut the suture short irrigated any wet bone dust. Arthroscopy pictures taken and saved onto the system throughout the case. wounds thoroughly irrigated. Meticulous hemostasis achieved. Portal sites cleaned with wet dry dressing followed by closure of the portals and incisions with 2-0 Vicryl suture and 3-0 Monocryl sutures. Steri-Strips Adaptic 4 x 4 gauze ABD dressing with cloth tape and an abduction pillow sling was then placed. Patient woken up from general anesthetic transferred off the operating room table and taken to postanesthetic care unit in stable condition. All sponge needle instrument counts were correct. Plan to the patient discharged home according to day surgery criteria. CPT 44603, 67773, 08629, 71818, Patient brought to the operating room theater. Placed supine on the table. General anesthesia induced. 2 g of IV Ancef administered prior to the start of the case. Patient transferred right side up lateral decubitus beanbag positioner. Axillary roll placed. SCDs on the legs. All bony prominences padded. Upper extremity prepped and draped in the usual sterile fashion with chlorhexidine-based prep solution allowing over 3 minutes drying time prior to draping. 10 pounds of inline traction with the arm in 40 degrees of abduction was used. Preoperative timeout performed to confirm the site patient and the surgery. Began by inserting the arthroscope into the intra-articular portion of the shoulder. Use spinal needle inside out localization to perform an anterior portal through the rotator interval. Did a full diagnostic arthroscopy. Cartilage on the humeral head and the glenoid was normal. LHB origin had tearing up to 70% of the origin, unstable. Tried to debride this, but very unstable and few fibers remaining, so did a tenotomy with ablator to plan for later tenodesis. Labrum normal, contoured this with shaving instrument. The subscapularis was normal, aside from some mild longitudinal fraying. IS and TM normal undersurface. Full thickness full width tear of SS tendon. Delaminated anteriorly, split from lateral to medial. Retracted to mid humeral head. I then placed the arthroscope into the subacromial space and used 2 accessory lateral portals. Did a complete bursectomy for moderate amount of mostly inflammatory bursitis. Downsloping of AL acromion. Used high speed nette to flatten this by 4mm. Cuff mobile. Tear completed at anterior leading edge 1cm x 1cm. Cleaned up the margins at the frayed aspect of the cuff. I prepared the tuberosity prior using ablator removing any remaining soft tissue and use the power pick instrument for multiple bony trephination's. Used inverted horizontal mattress fibertape and fiberlink in between for luggage tag, and rip stop configuration to create 3 suture limbs. Then inserted these into arthrex 4.75mm swivelock anchor just lateral to the cuff repair footprtin. Also used the 2-0 fiberwire from the anchor to repair a smaller leading edge elevation, converted the knotless mechanism and nice repair at that point. I then returned my attention to performing the biceps tenodesis. I made a small 1.5 inch incision centered over the proximal anterior medial aspect of the humerus overlying the long head of the biceps tendon. I carried the dissection down through skin and subcutaneous tissue achieved meticulous hemostasis. Protected the cephalic vein dissected in the interval and identified long head of the biceps. Biceps quite scarred into the groove again similar to the other side, worked to mobilize this but was unable to fully release it proximally, so had to slightly truncate the LHB tendon. Depsite this, still good length for the repair. Drilled a unicortical tunnel for the arthrex biceps all suture anchor. Set anchor, delivered the loop through the tendon and then appropriate tension. Set the tension. Deliver the repair stitch over top of the biceps and through the loop and then through the conversion suture was converted the suture and pulled on the free end to set the tension. Then pulled on the remaining white free ends suture to then set the loop down on top of this. I then passed ends back through the tendon and tied on top of that for a knotless as well as backup and knotted fixation. I cut the suture short irrigated any bone dust. Arthroscopy pictures taken and saved onto the system throughout the case. wounds thoroughly irrigated. Meticulous hemostasis achieved. Portal sites cleaned with wet dry dressing followed by closure of the portals and incisions with 2-0 Vicryl suture and 3-0 Monocryl sutures. Steri-Strips Adaptic 4 x 4 gauze ABD dressing with cloth tape and an abduction pillow sling was then placed. Patient woken up from general anesthetic transferred off the operating room table and taken to postanesthetic care unit in stable condition. All sponge needle instrument counts were correct. Plan to the patient discharged home according to day surgery criteria. CPT 49027, 43845, 76771, 15594 Surgical Findings: as above Complications Complications: No Admit VTE Documentation VTE Present on Admission: No VTE Mechan Device Prophylaxis: SCD's VTE Pharm Prophylaxis ordered?: No Reason prophylaxis not ordered: Treatment Not Indicated
--- NOTE | 2025-06-08 10:28 | PCM.POST.ANE ---
Anesthesia: Postop Eval I Current Vital Signs Temperature: 97.1 F Pulse Rate: 78 Blood Pressure: 138/73 Respiratory Rate: 18 Pulse Ox: 98 Oxygen Delivery Method: Room Air Assessment Airway patent: Yes Spontaneous unlabored respirations: Yes Mental status: Awake nausea: No Vomiting: No Anesthesia Complication: No Fluid Hydration Crystalloid volume administer (ml): 900 Total IV fluid infused: 900 Progress Note Anesthesia document: Postop Eval 1 completed: Yes
--- NOTE | 2025-06-08 11:42 | POSTOPAN2_ITS ---
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 Spontaneous unlabored Yes 06/08/25 10:28 HORSE SHOW [email or web address] respirations Mental status Awake 06/08/25 10:28 HORSE SHOW [email or web address] nausea No 06/08/25 10:28 HORSE SHOW [email or web address] Vomiting No 06/08/25 10:28 HORSE SHOW MANAGER.ABAR Anesthesia Postop Eval I: Fluid Summary Crystalloid volume administer 900 06/08/25 10:28 HORSE SHOW [email or web address] (ml) Colloids volume administered ( ml) Blood Product volume administered (ml) Total IV fluid infused 900 06/08/25 10:28 HORSE SHOW MANAGER.ABAR Anesthesia Postop Eval I: Summary Notes Anesthesia Complication No 06/08/25 10:28 HORSE SHOW MANAGER.ABAR Anesthesia Complication Comment: Post-operative progress note Anesthesia: Postop Eval II Evaluation Mental status: Awake and Calm Pain Level: 0 nausea: No Vomiting: No Complications Anesthesia Complication: No
--- NOTE | 2025-06-08 11:42 | PCM.POSTANE2 ---
Anesthesia Postop Eval I Sum Postop Eval Completion status Anesthesia document: Postop Eval 1 completed: Yes Anesthesia Postop Eval I Summary Anesthesia Postop Eval I Summary: Anesthesia Postop Eval I: Assessment Summary Airway patent Yes 06/08/25 10:28 [email or web address] Spontaneous unlabored Yes 06/08/25 10:28 [email or web address] respirations Mental status Awake 06/08/25 10:28 [email or web address] nausea No 06/08/25 10:28 [email or web address] Vomiting No 06/08/25 10:28 [email or web address] Anesthesia Postop Eval I: Fluid Summary Crystalloid volume administer 900 06/08/25 10:28 [email or web address] (ml) Colloids volume administered ( ml) Blood Product volume administered (ml) Total IV fluid infused 900 06/08/25 10:28 [email or web address] Anesthesia Postop Eval I: Summary Notes Anesthesia Complication No 06/08/25 10:28 [email or web address] Anesthesia Complication Comment: Post-operative progress note Anesthesia: Postop Eval II Evaluation Mental status: Awake and Calm Pain Level: 0 nausea: No Vomiting: No Complications Anesthesia Complication: No
== END 2025-06-08 12:22 | disposition home or self-care (01) ==
LOC: SDC 06:43 → AC 06:44
PROVIDERS: Anesthesiology; PCP Nurse Practitioner Family; Referring Provider Orthopaedic Surgery Sports Medicine; Visit Provider Orthopaedic Surgery Sports Medicine
PROC: (CPT 29805; principal; 2025-06-08 07:40)
DX: S43.432A Superior glenoid labrum lesion of left shoulder, initial encounter (principal); X58.XXXA Exposure to other specified factors, initial encounter; M25.812 Other specified joint disorders, left shoulder; M75.102 Unspecified rotator cuff tear or rupture of left shoulder, not specified as traumatic; M75.52 Bursitis of left shoulder; Z87.891 Personal history of nicotine dependence
CPT/HCPCS: 29827; 23430; 29826; 01630; 64415; 80048; 85027; C1713; J2405